=== PATIENT | male | born 1945 | race African-American/Black ===

== ENCOUNTER 2018-05-23 07:05 | Inpatient (IN) | payer BC ==
[2018-05-23] VITALS (34 sets, daily range): BP systolic 70–173; BP diastolic 30–86
[~2018-05-23] VITALS: Ht 152.4 cm; Wt 64.9 kg
--- NOTE | 2018-05-23 06:59 | Emergency Room Report ---
History of Present Illness General Source: Patient, EMS Present Illness HPI Patient is a 72-year-old male presented after increased altered mental status. Patient prior history of diabetes. He was noted to have a low blood sugar by EMS. The patient was given D10. A repeat blood sugar was also noted to be low. The patient was subsequently given a second dose of D10. The patient was noted to have persistent altered mental status. The patient's review blood recheck blood sugar was greater than 110 at this time.The patient had been awake but nonresponsive to questioning. He continues to be somewhat confused. Allergies: Coded Allergies: No Known Allergies (Unverified , 05/23/18) Patient History Past Medical History: see triage record Reviewed Nursing Documentation: PMH: Agreed; PSxH: Agreed Review of Systems All Other Systems: negative except mentioned in HPI Physical Exam Sp02 EP Interpretation: reviewed, normal General Appearance: normal inspection, well appearing, no apparent distress, alert, GCS 15, Chronically Ill Head: atraumatic ENT: normal ENT inspection, hearing grossly normal, normal voice Neck: normal inspection, full range of motion, supple, no bony tend Respiratory: normal inspection, lungs clear, normal breath sounds, no respiratory distress, no retraction, no wheezing Cardiovascular #1: regular rate, rhythm, no edema Gastrointestinal: normal inspection, normal bowel sounds, non tender, soft, no guarding, no hernia Genitourinary: no CVA tenderness Musculoskeletal: normal inspection, back normal, normal range of motion Neurologic: normal inspection, alert, responsive, speech normal Psychiatric: normal inspection, judgement/insight normal, mood/affect normal Skin: normal inspection, normal color, no rash Procedures Critical Care Time Critical Care Time Patient had a critical medical condition which untreated could potentially result in life or limb threatening injury. Total critical care time excluding procedures approximately 45 minutes. Medical Decision Making Diagnostic Impression: Primary Impression: Altered level of consciousness Additional Impressions: Acute renal failure Lactic acidosis Hypoglycemia ER Course Patient presented for altered mental status. Differential diagnosis included but was not limited to ischemic stroke, subarachnoid hemorrhage, hypoglycemia, spinal cord injury, neurodegenerative disorder, urinary tract infection, hypoxemia. The patient was noted to have evidence of acute renal failure. Patient was started on IV fluids. He was given IV dextrose in the field. The patient was noted to have a markedly hyperkalemia as well as evidence of acute renal failure. Patient was discussed with Dr. Workman for nephrology consult. The Dr. Mike Randle was contacted due to capitated physician. Patient was also noted to be the bradycardic in Dr. Ramy Madera was contacted for cardiology consult Labs Test 05/23/18 07:25 05/23/18 09:30 White Blood Count 9.2 K/UL (4.8-10.8) Red Blood Count 3.86 M/UL (4.70-6.10) Hemoglobin 10.7 G/DL (14.2-18.0) Hematocrit 32.7 % (42.0-52.0) Mean Corpuscular Volume 85 FL (80-99) Mean Corpuscular Hemoglobin 27.7 PG (27.0-31.0) Mean Corpuscular Hemoglobin Concent 32.8 G/DL (32.0-36.0) Red Cell Distribution Width 12.8 % (11.6-14.8) Platelet Count 214 K/UL (150-450) Mean Platelet Volume 7.0 FL (6.5-10.1) Neutrophils (%) (Auto) 75.4 % (45.0-75.0) Lymphocytes (%) (Auto) 20.2 % (20.0-45.0) Monocytes (%) (Auto) 4.0 % (1.0-10.0) Eosinophils (%) (Auto) 0.1 % (0.0-3.0) Basophils (%) (Auto) 0.3 % (0.0-2.0) Sodium Level 133 MMOL/L (136-145) Potassium Level 6.3 MMOL/L (3.5-5.1) Chloride Level 94 MMOL/L (98-107) Carbon Dioxide Level 16 MMOL/L (21-32) Anion Gap 23 mmol/L (5-15) Blood Urea Nitrogen 73 mg/dL (7-18) Creatinine 7.5 MG/DL (0.55-1.30) Estimat Glomerular Filtration Rate 7.2 mL/min (>60) Glucose Level 314 MG/DL (74-106) Calcium Level 9.6 MG/DL (8.5-10.1) Phosphorus Level 4.6 MG/DL (2.5-4.9) Magnesium Level 1.8 MG/DL (1.8-2.4) Total Bilirubin 1.0 MG/DL (0.2-1.0) Aspartate Amino Transf (AST/SGOT) 23 U/L (15-37) Alanine Aminotransferase (ALT/SGPT) 21 U/L (12-78) Alkaline Phosphatase 108 U/L (46-116) Total Creatine Kinase 118 U/L (26-140) Creatine Kinase MB 0.7 NG/ML (0.0-3.6) Creatine Kinase MB Relative Index 0.5 Troponin I 0.004 ng/mL (0.000-0.056) Pro-B-Type Natriuretic Peptide 1080 pg/mL (0-125) Total Protein 7.9 G/DL (6.4-8.2) Albumin 3.6 G/DL (3.4-5.0) Globulin 4.6 g/dL Albumin/Globulin Ratio 1.0 (1.0-2.7) Lactic Acid Level 15.60 mmol/L (0.66-2.22) EKG Diagnostic Results Rate: normal Rhythm: NSR ST Segments: other - peaked t waves Status: unchanged Disposition: ADMITTED INPATIENT Condition: Critical Rickie Walker MD May 23, 2018 06:59
[2018-05-23 08:01] LABS: BASOPHILS % (AUTO) 0.3 % (0.0-2.0); EOSINOPHILS % (AUTO) 0.1 % (0.0-3.0); HEMATOCRIT 32.7 % (42.0-52.0); HEMOGLOBIN 10.7 G/DL (14.2-18.0); LYMPHOCYTES % (AUTO) 20.2 % (20.0-45.0); MEAN CORPUSCULAR VOLUME 85 FL (80-99); NEUTROPHILS % (AUTO) 75.4 % (45.0-75.0); PLATELET COUNT 214 K/UL (150-450); RED BLOOD COUNT 3.86 M/UL (4.70-6.10); RED CELL DISTRIBUTION WIDTH 12.8 % (11.6-14.8); WHITE BLOOD COUNT 9.2 K/UL (4.8-10.8)
[2018-05-23 08:28] LABS: ALBUMIN 3.6 G/DL (3.4-5.0); ANION GAP 23 mmol/L (5-15); CALCIUM 9.6 MG/DL (8.5-10.1); CARBON DIOXIDE 16 MMOL/L (21-32); CHLORIDE 94 MMOL/L (98-107); CKMB 0.7 NG/ML (0.0-3.6); CREATININE 7.5 MG/DL (0.55-1.30); SODIUM 133 MMOL/L (136-145)
[2018-05-23 08:30] LABS: POTASSIUM 6.3 MMOL/L (3.5-5.1)
[2018-05-23 08:45] LABS: PHOSPHORUS 4.6 MG/DL (2.5-4.9)
[2018-05-23] MEDS ORDERED: Calcium Chloride 100mg/ml Vial IVP ONE ×2 (08:45→13:30)
[2018-05-23 08:46] LABS: ALANINE AMINOTRANSFERASE 21 U/L (12-78); ALKALINE PHOSPHATASE 108 U/L (46-116); ASPARTATE AMINO TRANSFERASE 23 U/L (15-37); CREATINE KINASE 118 U/L (26-140)
[2018-05-23 08:47] LABS: BLOOD UREA NITROGEN 73 mg/dL (7-18)
[2018-05-23] MEDS ORDERED: Sodium Polystyrene Sulfonate 15gm Powder ORAL ONE (09:15)
--- NOTE | 2018-05-23 09:24 | Diagnostic Imaging Report ---
Indication: Shortness of breath Technique: One view of the chest Comparison: none Findings: The lungs and pleural spaces are clear. The heart size is upper limits of normal. There are degenerative changes of both shoulders Impression: No acute process
--- NOTE | 2018-05-23 09:43 | Diagnostic Imaging Report ---
Indication: Altered mental status Technique: spiral acquisitions obtained through the brain. Angled axial and coronal 5 x 5 mm slices were reconstructed. No IV contrast utilized. Radiation dose was minimized using automated exposure control Total dose length product 1347.93 mGycm. CTDIvol(s) 70.38 mGy Comparison: none FINDINGS: No acute hemorrhage or edema. No mass effect or midline shift. There is age-related enlargement of the ventricles and extra axial CSF spaces. There is periventricular deep white matter ischemic change. Normal jensen-white differentiation. Visualized orbits are unremarkable. There is minimal ethmoid sinus disease.. Intact calvarium. The mastoids are clear. IMPRESSION: Chronic and age-related changes. Negative for acute intracranial bleed or mass effect Sinus disease The CT scanner at [facility] is accredited by the [employer] and the scans are performed using protocols designed to limit radiation exposure to as low as reasonably achievable to attain images of sufficient resolution adequate for diagnostic evaluation
--- NOTE | 2018-05-23 09:53 | Diagnostic Imaging Report ---
Indication: Abdominal pain Technique: Spiral acquisitions obtained through the abdomen and pelvis. No oral contrast utilized, per emergency room physician request No IV contrast utilized, per referring physician request.. Multiplanar reconstructions were generated. Total dose length product 662.32 mGycm. CTDIvol(s) 13.92 mGy. Dose reduction achieved using automated exposure control Comparison: None Findings: Lack of enteric contrast limits assessment of the GI tract. The appendix is normal. Moderate retained stool is seen diffusely throughout the colon. No evidence of diverticulosis or diverticulitis. No small bowel distention. There is a tiny fat-containing umbilical hernia. No free or loculated intraperitoneal gas or fluid is evident. The distal esophagus is distended by gas. The stomach and duodenum are unremarkable. Lack of IV contrast limits assessment of the solid organs. A calcification, likely postinflammatory, is seen in segment 7 of the liver. No other focal liver abnormality demonstrated. The gallbladder contains one or more small gallstones. No biliary ductal dilatation. The pancreas, spleen, adrenals are unremarkable. Calcifications in the bilateral renal sinuses may be calyceal or arterial. There is perinephric fat stranding bilaterally. No definite focal renal abnormality. No hydronephrosis or hydroureter or ureteral calculi are demonstrated. No retroperitoneal or mesenteric mass or adenopathy. No pelvic mass or adenopathy. There is a penile prosthesis in place. The bones demonstrate fairly extensive degenerative spondylosis changes. The lung bases demonstrate posterior dependent atelectatic changes. The heart is mildly enlarged. Arterial stents are seen in the bilateral superficial femoral arteries. Impression: Bilateral perinephric fat stranding, acuity indeterminate although suspect chronic. Acute infection certainly possible, however. Correlate with laboratory findings. No definite acute process otherwise Limited assessment of the GI tract, due to lack of enteric contrast administration Distended distal esophagus, suspect on the basis of disordered motility Cholelithiasis Bilateral renal sinus calcifications. Suspect arterial, although could represent nonobstructive calyceal calculi Cardiomegaly Right lobe liver calcification, most likely postinflammatory Other findings as noted, including bilateral superficial femoral arterial stents, basilar pulmonary dependent atelectatic changes, degenerative spondylosis, penile prosthesis, tiny fat-containing umbilical hernia The CT scanner at [facility] is accredited by the [employer] and the scans are performed using protocols designed to limit radiation exposure to as low as reasonably achievable to attain images of sufficient resolution adequate for diagnostic evaluation.
[2018-05-23] MEDS ORDERED: NS 1000ml 1,900 ML IVLG ONE (10:30)
[2018-05-23] MEDS ORDERED: cefTRIAXone 1 GM in NS 55 ML IVPB ONE (10:30)
[2018-05-23 10:42] LABS: APPEARANCE,URINE TURBID; BILIRUBIN, URINE NEGATIVE (NEGATIVE); COLOR,URINE PALE YELLOW; GLUCOSE, URINE (UA) 1+ (NEGATIVE); KETONES,URINE 1+ (NEGATIVE); LEUKOCYTE ESTERASE ,URINE NEGATIVE (NEGATIVE); NITRITE,URINE NEGATIVE (NEGATIVE); PH,URINE 5 (4.5-8.0); PROTEIN,URINE 3+ (NEGATIVE); UROBILINOGEN,URINE NORMAL MG/DL (0.0-1.0)
[2018-05-23] MEDS ORDERED: Sodium Bicarbonate 50ml Carp IV ONE (12:00)
[2018-05-23] MEDS: DEXTROSE IV SCH ×2 (12:08→16:54)
[2018-05-23] MEDS: SODIUM BICARBONATE IV SCH ×2 (12:08→16:54)
[2018-05-23] MEDS ORDERED: Atropine Sulfate 0.4mg/ml inj 20ML IVP ONE (13:30)
[2018-05-23] MEDS: Sodium Polystyrene Sulfonate 15gm Powder ORAL SCH ×2 (13:37→13:40)
--- NOTE | 2018-05-23 14:36 | History & Physical ---
History and Physical History & Physicial dict Mike Randle MD May 23, 2018 14:36
[2018-05-23 15:46] LABS: ANION GAP 29 mmol/L (5-15); BLOOD UREA NITROGEN 76 mg/dL (7-18); CALCIUM 10.7 MG/DL (8.5-10.1); CHLORIDE 98 MMOL/L (98-107); CREATININE 7.9 MG/DL (0.55-1.30); SODIUM 135 MMOL/L (136-145)
[2018-05-23] MEDS ORDERED: Calcium Gluconate 1gm/10ml vial IVP SCH (15:48)
[2018-05-23 15:59] LABS: POTASSIUM 8.9 MMOL/L (3.5-5.1)
[2018-05-23 16:00] LABS: CARBON DIOXIDE 8 MMOL/L (21-32)
[2018-05-23] MEDS ORDERED: Heparin 2000 units/Ns 1000ml INJ PRN (16:00)
[2018-05-23] MEDS ORDERED: Lidocaine 1% Plain 30 ml INJ PRN (16:00)
[2018-05-23] MEDS ORDERED: Sodium Bicarbonate 50ml Carp IV SCH (17:15)
[2018-05-23] MEDS: 1/2 NS IV SCH ×2 (17:30→18:50)
[2018-05-23] MEDS: CALCIUM CHLORIDE IV SCH ×2 (17:30→18:50)
[2018-05-23] MEDS ORDERED: Heparin 5000 units/ml inj IV SCH (17:52)
[2018-05-23] MEDS ORDERED: Insulin Human Regular 100units/ml 3ml IV SCH (18:00)
[2018-05-23] MEDS: NovoLOG Insulin Flexpen SUBQ SCH (18:16)
[2018-05-23] MEDS: Albuterol ud Inhalation HHN SCH (19:08)
--- NOTE | 2018-05-23 19:37 | Cardiology Report ---
APPROVED REPORT EKG Measurement Heart [id number] DC [id number] Sinus bradycardia Left axis deviation Nonspecific ST abnormality Abnormal ECG
--- NOTE | 2018-05-23 19:45 | History and Physical Report ---
DATE OF ADMISSION: 05/23/2018 HISTORY OF PRESENT ILLNESS: The patient is a 72-year-old man who comes to the hospital from home by paramedics because of altered mental status. Apparently, he was found to be poorly responsive and hypoglycemic in the field. He was given D10 twice and his mental status improved. He has been vomiting. He is somewhat confused and is very weak, but is able to give a brief history. He states that he has had diabetes for many years and has a history of coronary artery disease with stent placement. He is not aware of any history of kidney disorder. He has been vomiting and had a poor appetite for about three days. ALLERGIES: None. MEDICATIONS: It is unknown what his medication are, but he states he is not on insulin. REVIEW OF SYSTEMS: Cannot be obtained. PHYSICAL EXAMINATION: VITAL SIGNS: The blood pressure is 92/66. The heart rate was as low as 30s. Presently, the heart rate is 44, respirations 16 to 18, temperature is 94.2, and saturation is 96% on room air. GENERAL: He is overweight. He is alert and responsive, but very weak and vomiting. HEENT: Head is normocephalic. NECK: No jugular venous distention. CHEST: Clear. CARDIAC: Rhythm is regular bradycardia. ABDOMEN: Soft and nontender. Liver and spleen not enlarged. EXTREMITIES: No clubbing, cyanosis, or edema. LABORATORY AND DIAGNOSTIC DATA: Chest x-ray is clear. The CT of the brain is unremarkable. A CT of the abdomen and pelvis was done without contrast and shows some perinephric fat stranding, distended distal esophagus, cholelithiasis, renal sinus calcifications likely arterial, cardiomegaly, liver calcification, femoral artery stent, atelectasis, penile prosthesis, and small umbilical hernia. Laboratory studies show sodium 133, potassium 6.3, bicarbonate 16, BUN 73, creatinine 7.5, and blood sugar 314. Lactic acid 13.6, repeated was 15.6. Troponin negative. Liver enzymes normal. BNP 1080. Urinalysis showed 3+ protein, 3+ blood, 10 to 15 red cells, 2 to 4 white cells, 1+ ketones, and 1+ glucose. CBC: white count is 9200, hemoglobin 10.7, and platelets are normal. IMPRESSION: 1. Diabetes with hypoglycemia. 2. Severe metabolic acidosis. 3. Acute on chronic renal failure with uremia and hyperkalemia. 4. Arrhythmia likely due to hyperkalemia. 5. Peripheral artery disease. 6. Coronary artery stent placement. 7. Hypertension. 8. Hyperlipidemia. 9. Anemia. 10. Cholelithiasis. 11. Umbilical hernia. PLAN: The patient will be admitted to intensive care. We will manage his hyperkalemia and hydrate according to recommendations by Nephrology. He did not recommend initiating dialysis at this time. Repeat laboratory studies will be monitored closely. Mike Randle M.D. DR: REE JOB#: [id number] CC: KINZA
[2018-05-23] MEDS ORDERED: Vancomycin 1gm/D5W 275ml IVPB SCH ×2 (20:00)
[2018-05-23] MEDS: Dyna-Hex 2% Top Sol 2oz TOPIC SCH (20:00)
[2018-05-23] MEDS ORDERED: Calcium Chloride 100mg/ml Vial IV ONE (20:00)
[2018-05-23] MEDS ORDERED: Dyna-Hex 2% Top Sol 2oz TOPIC SCH (20:00)
[2018-05-23] MEDS ORDERED: Sodium Bicarbonate 50 ML in D5W 1000ml 1,000 ML IV SCH (20:00)
[2018-05-23] MEDS ORDERED: CALCIUM CHLORIDE IV ONE (20:00)
[2018-05-23] MEDS ORDERED: NS IV ONE (20:00)
[2018-05-23 20:07] LABS: HEMATOCRIT 26.6 % (42.0-52.0); HEMOGLOBIN 8.2 G/DL (14.2-18.0); MEAN CORPUSCULAR VOLUME 87 FL (80-99); PLATELET COUNT 155 K/UL (150-450); RED BLOOD COUNT 3.06 M/UL (4.70-6.10); RED CELL DISTRIBUTION WIDTH 12.9 % (11.6-14.8); WHITE BLOOD COUNT 7.7 K/UL (4.8-10.8)
[2018-05-23 20:08] LABS: BASOPHILS % (AUTO) 0.2 % (0.0-2.0); LYMPHOCYTES % (AUTO) 7.3 % (20.0-45.0); MONOCYTES % (AUTO) 6.3 % (1.0-10.0); NEUTROPHILS % (AUTO) 86.2 % (45.0-75.0)
[2018-05-23 20:45] LABS: ANION GAP 25 mmol/L (5-15); BLOOD UREA NITROGEN 75 mg/dL (7-18); CALCIUM 11.2 MG/DL (8.5-10.1); CARBON DIOXIDE 15 MMOL/L (21-32); CHLORIDE 94 MMOL/L (98-107); CREATININE 7.4 MG/DL (0.55-1.30); SODIUM 135 MMOL/L (136-145)
--- NOTE | 2018-05-23 20:45 | Consultation ---
DATE OF CONSULTATION: 05/23/2018 NEPHROLOGY CONSULTATION CONSULTING PHYSICIAN: Suraj Workman M.D. REFERRING PHYSICIAN: Mike Randle M.D. REASON FOR CONSULTATION: Hyperkalemia and azotemia. HISTORY OF PRESENT ILLNESS: The patient presents with a several-day history of nausea and vomiting, unable to hold down food, renal failure, and potassium is 6.3. He has been a diabetic for many years on oral agents. He has a history of coronary artery disease and prior stent. He has not been to this hospital before. He has no known renal failure. He has had elevated lactic acid on this admission and some bradycardia and was given emergency treatment in the emergency room. PAST SURGERIES: Coronary artery stenting. HOME MEDICATIONS: Reported by the patient include metformin, statin, aspirin, and Plavix, probably a blood pressure medicine, but he could not give a good history. ALLERGIES: None known. SYSTEM REVIEW: HEENT: No known diabetic retinopathy. He states vision and hearing is good. ENDOCRINE: Diabetes as above for many years. No known thyroid disease. PULMONARY: No asthma, TB, or chronic cough. CARDIAC: No angina, myocardial infarction, palpitations, or congestive heart failure. GASTROINTESTINAL: Recurrent nausea and vomiting recently. No gastrointestinal bleeding. No history of ulcer and colonic disease. GENITOURINARY: No dysuria, hematuria, or kidney stones. No history of prostate disease. NEUROLOGIC: No CVA or seizures. MUSCULOSKELETAL: No chronic joint pain. PHYSICAL EXAM: GENERAL: The patient is an acutely ill man, now alert, although he presented with hypoglycemia. VITAL SIGNS: Blood pressure 117/51, pulse 45, room air sat 98%, and temperature 92.3, it was as high as 99. HEENT: Oral mucosa is very dry and coated tongue. Sclerae are nonicteric. Ocular motion is intact in all directions. NECK: No adenopathy. LUNGS: Clear. HEART: Regular rhythm. I hear no murmur. ABDOMEN: Soft without organomegaly or tenderness. GENITOURINARY: Penis and testes normal. EXTREMITIES: No edema, cyanosis, or clubbing. NEUROLOGIC: He is alert, responsive, and somewhat withdrawn. Ocular motion intact in all directions. Smile symmetric. Tongue is midline. He moves all extremities. PERTINENT LABS: Sodium 133, potassium 6.3, chloride 94, CO2 of 16, BUN 73, creatinine is 7.5, and glucose is 314. Total CK 118. BNP 1080. Albumin 3.6. Urine shows 3+ protein, 10 to 15 rbc's, and 2 to 4 red cells per high-power field. IMPRESSION: 1. Acute kidney injury likely dehydration. 2. Hyperkalemia secondary to acute kidney injury and possibly potassium retaining medications. 3. Lactic acidosis. 4. History of hypoglycemia on this presentation. 5. Dehydration, severe. 6. Possible underlying chronic kidney disease. Prior data not available. PLAN: The patient needs vigorous hydration, monitoring of his laboratories, and treatment for hyperkalemia. Detailed orders are given. Suraj Workman M.D. DR: SILVIA JOB#: [id number] CC:
[2018-05-23 20:48] LABS: POTASSIUM 7.1 MMOL/L (3.5-5.1)
[2018-05-23] MEDS ORDERED: Sodium Bicarbonate 100 ML in D5W 1000ml 1,000 ML IV SCH (21:00)
--- NOTE | 2018-05-23 21:01 | Operative Note - PDOC ---
Operative Note Operative Note Date of Operation/Procedure: May 23, 2018 Pre-op Diagnosis: renal insufficiency requiring urgent HD Procedure: left femoral temporary HD catheter insertion Post-op Diagnosis: same as pre-op Surgeon: meseret Anesthesia: local Specimen: none Complications: none Condition: unstable Estimated Blood Loss: minimal Drains: none Implant(s) used?: No Indications for Procedure 72M in critical condition requiring urgent HD. Please see labs and ED note for details. Surgery called for Temp HD line placement emergently. Description of Procedure Left groin prepped and draped in standard surgical fashion. All protective equipment worn and precautions taken. Left femoral vein cannulated on first try using finder needle. guidewire placed and needle removed. skin incision made and dilators used. Temporary HD catheter placed and guidewire discarded. both ports flushed and aspirated well. line sutured in place. dressings applied. heparin placed in ports. okay for HD use Derek Lacey May 23, 2018 21:01
[2018-05-23] MEDS: Sodium Bicarbonate 100 ML in D5W 1000ml 1,000 ML IV SCH (21:40)
[2018-05-23] MEDS ORDERED: Piperacillin/Tazobactam 3.375 GM in D5W 110 ML IVPB SCH (22:00)
[2018-05-23] MEDS: Zosyn 2.25 gm in D5W 55ml IV SCH (22:33)
--- NOTE | 2018-05-23 23:04 | Emergency Room Report ---
History of Present Illness General Chief Complaint: Altered Level of Consciousness Source: Patient, Medical Record Present Illness Allergies: Coded Allergies: No Known Allergies (Unverified , 05/23/18) Nursing Documentation-[facility] Past Medical History: No History, Except For Hx Cardiac Problems: Yes Hx Hypertension: Yes Hx Diabetes: Yes Hx Cancer: No Hx Gastrointestinal Problems: No Hx Neurological Problems: No Physical Exam Vital Signs Date Time Temp Pulse Resp B/P (MAP) Pulse Ox O2 Delivery O2 Flow Rate FiO2 05/23/18 06:58 99.0 76 18 118/54 99 Room Air 05/23/18 16:35 100 Procedures Critical Care Time Critical Care Time i. I feel this is a highly complex case requiring extensive working including EKG/Rhythm strip, Xray/CT/US, Blood/urine lab work, repeat exams while in ED, and administration of strong opiates/narcotics for pain control, admission to hospital or close patient follow up. Total time: 30 min bedside evaluation and treatment excludes procedures (EKG). Reason for critical care: hypoxic, hypotensive Possible complications: hypotension, hypertension, UT, shock, arrhythmias, metabolic acidosis, end organ damage, respiratory failure. Interventions: ABG. intubation. central line. Course: Patient hypoxic. ABG shows significant acidosis. I evaluated patient. Decision to intubate made. O2 sats improved after intubation. Patient remains hypotensive. Central line placed. Pressors started. Consultations: nursing staff, EMS, family Performed by: Dr Eubanks Tolerated well condition = critical j. because of unstable vital signs this patient had a condition that could potentially threaten life or limb. I feel this is a critical patient who required my full attention while patient was considered critical. Total Critical Care Time excluding procedures was greater than 35 minutes Central Line Central Line : Consent: Emergent Central Line Lumen: triple Maximal Sterile Barrier Tech: yes cap, yes mask, yes sterile gown, yes sterile gloves, yes large sterile sheet, yes hand hygiene, yes chlorhexidine prep Central Line Postion: femoral (R) Anesthesia: local Complications: none Central Line Post Position: sutured, good blood return Attempts: One Patient Tolerated: Well Complications: None Intubation Intubation : Consent: Emergent Intubation Method: orotracheal Tube Size (cm): 7.5 Medications: Etomidate, Rocuronium Intubation Complications: no complications Post Intubation Xray: Yes Attempts: One Patient Tolerated: Well Complications: None Medical Decision Making Diagnostic Impression: Primary Impression: Altered level of consciousness Additional Impressions: Acute renal failure Hypoglycemia Lactic acidosis ER Course I was called to evaluate this patient in the ICU. Admitted today for renal failure. Patient became more unresponsive. Hypoxic. ABG shows significant acidosis. On my evaluation I made decision to intubate patient. Patient O2 sats improved after intubation. Placed on ventilator. CXR confirms ET tube placement. Patient remains hypotensive. Placed right femoral central line. Pressors started. Blood pressure improved. Admitting physicians informed Last Vital Signs Date Time Temp Pulse Resp B/P (MAP) Pulse Ox O2 Delivery O2 Flow Rate FiO2 05/23/18 20:51 87 29 100 05/23/18 19:24 100 Mechanical Ventilator 05/23/18 19:00 125/48 05/23/18 18:45 93.1 Status: improved Disposition: ADMITTED INPATIENT Condition: Critical Scripts Unable to Obtain Active Prescriptions or Reported Meds Referrals: ADAM KAY (PCP) Yg Eubanks MD May 23, 2018 23:04
--- NOTE | 2018-05-23 23:45 | Consultation ---
DATE OF CONSULTATION: CARDIOLOGY CONSULTATION CONSULTING PHYSICIAN: Ramy Madera M.D. REQUESTING PHYSICIAN: Mike Randle M.D. REASON FOR CONSULTATION: Bradyarrhythmia and heart block. HISTORY OF PRESENT ILLNESS: This is a 72-year-old male, who was noted to be confused and altered in mentation at home. He was brought into the emergency room by paramedics. On arrival, he was hypoglycemic, hypothermic, and bradycardic. He was also hypotensive and subsequently, noted to have significant laboratory abnormalities including a potassium level of 6.3. His electrocardiogram in the emergency revealed sinus with first-degree AV block and episodes of ventricular escape beats intermittently. The patient was given fluid challenges, as well as Kayexalate, calcium, and D50. I have been asked to assist with further cardiovascular care. The patient apparently has had several days of vomiting and anorexia. He has not complained of chest pain or shortness of breath. PAST MEDICAL HISTORY: 1. Type 2 diabetes mellitus. 2. Coronary artery disease with history of coronary stent. 3. Hypertension. 4. Hyperlipidemia. 5. Peripheral artery disease with history of prior stenting. MEDICATIONS: Prior to admission, unknown. ALLERGIES: None known. FAMILY HISTORY: Not remarkable. SOCIAL HISTORY: He denies smoking or alcohol abuse. REVIEW OF SYSTEMS: Cannot be reliably obtained at this time. PHYSICAL EXAMINATION: GENERAL: He is awake and alert, but withdrawn and lethargic. VITAL SIGNS: Blood pressure 90/65, pulse 45, respirations 20, and temperature 94.2. HEENT: Conjunctivae pink. Oropharynx clear. Mucous membranes dry and . NECK: Supple. Jugular venous pressure normal. LUNGS: Clear. CARDIAC: Regular rhythm. Slow rate. Normal S1, S2 with no murmur. ABDOMEN: Soft and nontender. EXTREMITIES: Without edema. Capillary refill is diminished. IMAGING: Chest x-ray, no acute process. CAT scan of the brain, no acute process. LABORATORY DATA: Sodium 133, potassium 6.3, bicarbonate 16, BUN 73, creatinine 7.5, and glucose 314. Lactic acid 15.6. Troponin is negative. White count is 9.2 and hemoglobin 10.7. IMPRESSION: 1. Condition critical. Prognosis guarded. Concerns include heart block and bradyarrhythmias due to hyperkalemia. 2. Hyperkalemia due to acute kidney failure. 3. Acute kidney failure due to hypovolemia and dehydration. 4. Metabolic and lactic acidosis. 5. Peripheral artery disease. 6. Coronary artery disease with history of coronary stent and no signs of acute coronary insufficiency. 7. History of hypertension now with hypotension and shock due to hypovolemia. 8. Anemia likely due to kidney disease. 9. Metabolic encephalopathy. PLAN: 1. Intensive care unit monitoring. 2. External pacemaker leads. 3. Emergent treatment of hyperkalemia. 4. IV fluid hydration. 5. Likely need for emergent hemodialysis. 6. No role for temporary pacing without first correcting metabolic abnormalities. 7. We will follow closely during this hospital course. Ramy Madera M.D. DR: OMAR JOB#: [id number] CC:
[2018-05-23 23:49] LABS: ANION GAP 20 mmol/L (5-15); BLOOD UREA NITROGEN 43 mg/dL (7-18); CALCIUM 9.7 MG/DL (8.5-10.1); CARBON DIOXIDE 21 MMOL/L (21-32); CHLORIDE 96 MMOL/L (98-107); CREATININE 4.9 MG/DL (0.55-1.30); POTASSIUM 4.5 MMOL/L (3.5-5.1); SODIUM 137 MMOL/L (136-145)
[2018-05-24] VITALS (26 sets, daily range): BP systolic 62–155; BP diastolic 18–89
[2018-05-24] MEDS: NovoLOG Insulin Flexpen SUBQ SCH ×5 (00:31→23:38)
[2018-05-24] MEDS: Sodium Bicarbonate 100 ML in D5W 1000ml 1,000 ML IV SCH (03:58)
[2018-05-24 05:25] LABS: BASOPHILS % (AUTO) 0.2 % (0.0-2.0); EOSINOPHILS % (AUTO) 0.1 % (0.0-3.0); HEMOGLOBIN 8.1 G/DL (14.2-18.0); LYMPHOCYTES % (AUTO) 9.6 % (20.0-45.0); MEAN CORPUSCULAR VOLUME 81 FL (80-99); NEUTROPHILS % (AUTO) 78.1 % (45.0-75.0); PLATELET COUNT 152 K/UL (150-450); RED BLOOD COUNT 2.95 M/UL (4.70-6.10); RED CELL DISTRIBUTION WIDTH 12.5 % (11.6-14.8)
[2018-05-24 06:00] LABS: ALANINE AMINOTRANSFERASE 166 U/L (12-78); ALBUMIN 2.5 G/DL (3.4-5.0); ALBUMIN/GLOBULIN RATIO 0.9 (1.0-2.7); ALKALINE PHOSPHATASE 99 U/L (46-116); ANION GAP 16 mmol/L (5-15); ASPARTATE AMINO TRANSFERASE 241 U/L (15-37); BILIRUBIN,TOTAL 0.7 MG/DL (0.2-1.0); BLOOD UREA NITROGEN 49 mg/dL (7-18); CALCIUM 9.7 MG/DL (8.5-10.1); CARBON DIOXIDE 26 MMOL/L (21-32); CHLORIDE 94 MMOL/L (98-107); CREATININE 5.3 MG/DL (0.55-1.30); POTASSIUM 4.2 MMOL/L (3.5-5.1); SODIUM 136 MMOL/L (136-145)
[2018-05-24 06:11] LABS: PHOSPHORUS 3.2 MG/DL (2.5-4.9)
[2018-05-24] MEDS: Zosyn 2.25 gm in D5W 55ml IV SCH ×3 (06:22→21:46)
[2018-05-24] MEDS: Albuterol ud Inhalation HHN SCH ×3 (07:00→19:53)
[2018-05-24] MEDS ORDERED: Etomidate 40mg/20ml Inj IV ONE (08:19)
[2018-05-24] MEDS ORDERED: Succinylcholine 20mg/ml 10ml vial ONE (08:19)
[2018-05-24] MEDS ORDERED: Zemuron 50mg/5ml Inj IV ONE (08:19)
--- NOTE | 2018-05-24 08:58 | Diagnostic Imaging Report ---
Indication: Shortness of breath Technique: One view of the chest Comparison: 05/23/2018 Findings: Interim endotracheal extubation. There is now some perihilar vascular congestion and hazy perihilar parenchymal opacity. There is suggestion of slight blunting of right costophrenic sulcus, not evident previously. The heart size is upper limits of normal Impression: Developing mild perihilar venous congestion and hazy parenchymal opacity, over one day Possible small right pleural effusion Interim extubation
[2018-05-24 09:23] LABS: BASOPHILS % (AUTO) 0.4 % (0.0-2.0); HEMATOCRIT 24.4 % (42.0-52.0); HEMOGLOBIN 8.3 G/DL (14.2-18.0); LYMPHOCYTES % (AUTO) 8.7 % (20.0-45.0); MEAN CORPUSCULAR VOLUME 81 FL (80-99); MONOCYTES % (AUTO) 11.1 % (1.0-10.0); NEUTROPHILS % (AUTO) 79.8 % (45.0-75.0); PLATELET COUNT 166 K/UL (150-450); RED BLOOD COUNT 3.01 M/UL (4.70-6.10); RED CELL DISTRIBUTION WIDTH 12.5 % (11.6-14.8); WHITE BLOOD COUNT 10.9 K/UL (4.8-10.8)
--- NOTE | 2018-05-24 09:23 | Diagnostic Imaging Report ---
Indication: Post intubation Technique: One view of the chest Comparison: 10 hours earlier Findings: Interim endotracheal intubation. Endotracheal tube tip in good position, approximately 3 cm above the jerry. There is slight blunting of the left costophrenic sulcus, could indicate a small amount of pleural fluid. No definite infiltrates. The heart size is upper limits normal. Impression: Satisfactory endotracheal intubation Possible small left pleural effusion Other stable findings as described
[2018-05-24 09:35] LABS: ANION GAP 11 mmol/L (5-15); BLOOD UREA NITROGEN 51 mg/dL (7-18); CALCIUM 9.4 MG/DL (8.5-10.1); CARBON DIOXIDE 29 MMOL/L (21-32); CHLORIDE 94 MMOL/L (98-107); CREATININE 5.5 MG/DL (0.55-1.30); POTASSIUM 4.2 MMOL/L (3.5-5.1); SODIUM 134 MMOL/L (136-145)
[2018-05-24 10:09] LABS: CREATINE KINASE 1000 U/L (26-308)
[2018-05-24 11:29] LABS: ANION GAP 10 mmol/L (5-15); BLOOD UREA NITROGEN 47 mg/dL (7-18); CALCIUM 8.6 MG/DL (8.5-10.1); CARBON DIOXIDE 30 MMOL/L (21-32); CHLORIDE 96 MMOL/L (98-107); CREATININE 4.9 MG/DL (0.55-1.30); SODIUM 136 MMOL/L (136-145)
--- NOTE | 2018-05-24 11:42 | Pulmonology Progress Note ---
Assessment/Plan Assessment/Plan 1. Diabetes with hypoglycemia. 2. Severe metabolic acidosis; likely due to metformin 3. Acute on chronic renal failure with uremia and hyperkalemia. 4. Arrhythmia likely due to hyperkalemia. 5. Peripheral artery disease. 6. Coronary artery stent placement. 7. Hypertension. 8. Hyperlipidemia. 9. Anemia. 10. Cholelithiasis. 11. Umbilical hernia. intubated for resp failure last PM dialysis done for K 8.7 briefly on pressors self extubated and doing well now K normal no resp distress will get home med list titrate O2 Subjective Constitutional: Reports: fatigue, anorexia; Denies: fever Respiratory: Denies: shortness of breath Cardiovascular: Denies: chest pain Gastrointestinal/Abdominal: Denies: nausea, vomiting Allergies: Coded Allergies: No Known Allergies (Unverified , 05/23/18) Objective Last 24 Hour Vital Signs Date Time Temp Pulse Resp B/P (MAP) Pulse Ox O2 Delivery O2 Flow Rate FiO2 05/24/18 11:00 80 15 131/57 (81) 95 05/24/18 10:00 75 15 122/50 (74) 96 05/24/18 09:00 80 15 129/51 (77) 97 05/24/18 08:15 Venturi Mask 14.0 55 05/24/18 08:15 Venturi Mask 14.0 55 05/24/18 08:00 14.0 05/24/18 08:00 Venturi Mask 14.0 05/24/18 08:00 98.3 78 17 132/48 (76) 95 05/24/18 07:42 89 05/24/18 07:00 82 19 129/45 (73) 95 05/24/18 06:00 80 19 131/47 (75) 100 05/24/18 05:00 98.7 74 19 155/89 (111) 96 05/24/18 04:00 Mechanical Ventilator 05/24/18 04:00 74 19 138/54 (82) 100 05/24/18 04:00 70 05/24/18 04:00 100 05/24/18 03:12 73 23 80 05/24/18 03:00 74 19 133/53 (79) 100 05/24/18 02:00 78 19 121/56 (77) 100 05/24/18 01:06 75 23 100 05/24/18 01:00 75 19 124/48 (73) 100 05/24/18 00:00 78 19 127/47 (73) 100 05/24/18 00:00 Mechanical Ventilator 05/23/18 23:30 81 19 130/47 (74) 100 05/23/18 23:00 79 31 100 05/23/18 23:00 81 19 127/60 (82) 100 05/23/18 22:30 82 19 127/47 (73) 100 05/23/18 22:00 98.9 88 19 123/48 (73) 100 05/23/18 21:45 91 19 173/84 (113) 100 05/23/18 21:30 90 19 164/65 (98) 100 05/23/18 21:15 91 19 112/60 (77) 100 05/23/18 21:00 90 19 96/64 (75) 100 05/23/18 21:00 96/64 05/23/18 20:51 87 29 100 05/23/18 20:47 118/63 05/23/18 20:45 91 19 118/63 (81) 100 05/23/18 20:30 89 19 143/66 (91) 100 05/23/18 20:30 143/66 05/23/18 20:15 88 19 111/52 (71) 100 05/23/18 20:15 111/52 05/23/18 20:00 97.5 80 19 92/64 (73) 100 05/23/18 20:00 100 05/23/18 20:00 92/64 05/23/18 20:00 Mechanical Ventilator 05/23/18 20:00 70 05/23/18 19:45 117/53 05/23/18 19:45 80 19 117/53 (74) 100 05/23/18 19:30 125/49 05/23/18 19:30 69 19 125/49 (74) 100 05/23/18 19:24 70 14 100 Mechanical Ventilator 100 05/23/18 19:15 70 19 118/52 (74) 100 18 19:15 118/52 05/23/18 19:14 70 19 100 Mechanical Ventilator 100 05/23/18 19:08 70 19 100 05/23/18 19:00 125/48 05/23/18 19:00 70 19 122/47 (72) 100 05/23/18 18:45 93.1 70 19 122/47 (72) 100 05/23/18 18:30 71 16 128/49 (75) 100 05/23/18 18:15 71 17 144/51 (82) 100 18 18:00 120/41 05/23/18 18:00 56 15 120/41 (67) 100 05/23/18 17:45 55 15 99/38 (58) 100 05/23/18 17:30 47 15 95/36 (55) 100 05/23/18 17:15 40 15 86/54 (65) 100 05/23/18 17:10 52 15 88/43 (58) 100 05/23/18 17:08 74/32 05/23/18 17:05 46 15 70/30 (43) 100 05/23/18 17:00 50 15 71/35 (47) 100 05/23/18 16:35 100 05/23/18 16:35 64 15 100 05/23/18 16:00 57 05/23/18 16:00 Room Air 05/23/18 16:00 44 21 91/39 (56) 95 05/23/18 16:00 Mechanical Ventilator 05/23/18 15:40 57 21 86/47 (60) 93 05/23/18 15:00 44 21 91/39 (56) 95 05/23/18 14:36 94.2 55 22 90/66 97 Room Air 05/23/18 14:30 95.0 49 21 102/42 (62) 96 05/23/18 14:30 41 05/23/18 13:00 94.2 44 16 92/66 96 Room Air Intake and Output 05/23/18 05/24/18 19:00 07:00 Intake Total 1185 ml 3247.500 ml Output Total 10 ml 13 ml Balance 1175 ml 3234.500 ml Intake IV Total 1185 ml 3247.500 ml Output Urine Total 10 ml 13 ml # Voids 2 # Bowel Movements 1 General Appearance: no acute distress HEENT: anicteric Respiratory/Chest: lungs clear Cardiovascular: normal rate Abdomen: soft, non tender Extremities: no edema Microbiology Date/Time Source Procedure Growth Status 05/23/18 08:01 Nasal Nares Influenza Types A,B Antigen (BANDAR) - Final Complete Laboratory Tests 05/23/18 15:25: Sodium Level 135L, Potassium Level 8.9*H, Chloride Level 98, Carbon Dioxide Level 8*L, Anion Gap 29H, Blood Urea Nitrogen 76H, Creatinine 7.9H, Estimat Glomerular Filtration Rate 8.2, Glucose Level 297H, Lactic Acid Level 19.50H, Uric Acid 9.3H, Calcium Level 10.7H 05/23/18 16:03: Arterial Blood pH 7.105*L, Arterial Blood Partial Pressure CO2 19.9*L, Arterial Blood Partial Pressure O2 87.0, Arterial Blood HCO3 6.1*L, Arterial Blood Oxygen Saturation 92.2L, Arterial Blood Base Excess -21.7*L, Andreas Test Positive 05/23/18 17:05: Lactic Acid Level 19.10H 05/23/18 17:45: Arterial Blood pH 6.995*L, Arterial Blood Partial Pressure CO2 30.0L, Arterial Blood Partial Pressure O2 95.1, Arterial Blood HCO3 7.1*L, Arterial Blood Oxygen Saturation 92.3L, Arterial Blood Base Excess -22.8*L, Andreas Test Positive 05/23/18 19:40: White Blood Count 7.7, Red Blood Count 3.06L, Hemoglobin 8.2L, Hematocrit 26.6L , Mean Corpuscular Volume 87, Mean Corpuscular Hemoglobin 26.8L, Mean Corpuscular Hemoglobin Concent 30.8L, Red Cell Distribution Width 12.9, Platelet Count 155, Mean Platelet Volume 7.3, Neutrophils (%) (Auto) 86.2H, Lymphocytes (%) (Auto) 7.3L, Monocytes (%) (Auto) 6.3, Eosinophils (%) (Auto) 0.0, Basophils (%) (Auto) 0.2, Sodium Level 135L, Potassium Level 7.1*H, Chloride Level 94L, Carbon Dioxide Level 15L, Anion Gap 25H, Blood Urea Nitrogen 75H, Creatinine 7.4H, Estimat Glomerular Filtration Rate 8.8, Glucose Level 559#*H, Calcium Level 11.2H, Hepatitis Be Antibody [Pending], Hepatitis Be Antigen [Pending], Hepatitis C Antibody [Pending] 05/23/18 22:00: Arterial Blood pH 7.450, Arterial Blood Partial Pressure CO2 31.7L, Arterial Blood Partial Pressure O2 147.6H, Arterial Blood HCO3 21.5L, Arterial Blood Oxygen Saturation 98.0, Arterial Blood Base Excess -1.9, Andreas Test Positive 05/23/18 23:10: Sodium Level 137, Potassium Level 4.5, Chloride Level 96L, Carbon Dioxide Level 21, Anion Gap 20H, Blood Urea Nitrogen 43H, Creatinine 4.9H, Estimat Glomerular Filtration Rate 14.3, Glucose Level 326#H, Calcium Level 9.7, Lactic Acid Level 10.80H 05/24/18 04:00: White Blood Count 9.0, Red Blood Count 2.95L, Hemoglobin 8.1L, Hematocrit 24.0L , Mean Corpuscular Volume 81, Mean Corpuscular Hemoglobin 27.5, Mean Corpuscular Hemoglobin Concent 33.8, Red Cell Distribution Width 12.5, Platelet Count 152, Mean Platelet Volume 6.9, Neutrophils (%) (Auto) 78.1H, Lymphocytes ( %) (Auto) 9.6L, Monocytes (%) (Auto) 12.0H, Eosinophils (%) (Auto) 0.1, Basophils (%) (Auto) 0.2, Sodium Level 136, Potassium Level 4.2, Chloride Level 94L, Carbon Dioxide Level 26, Anion Gap 16H, Blood Urea Nitrogen 49H, Creatinine 5.3H, Estimat Glomerular Filtration Rate 13.1, Glucose Level 253H, Calcium Level 9.7, Phosphorus Level 3.2, Magnesium Level 1.3L, Total Bilirubin 0.7, Aspartate Amino Transf (AST/SGOT) 241H, Alanine Aminotransferase (ALT/SGPT ) 166H, Alkaline Phosphatase 99, Lactate Dehydrogenase 334H, Myoglobin [Pending] , Total Protein 5.2#L, Albumin 2.5L, Globulin 2.7, Albumin/Globulin Ratio 0.9L 05/24/18 05:30: Arterial Blood pH 7.519H, Arterial Blood Partial Pressure CO2 32.7L, Arterial Blood Partial Pressure O2 137.7H, Arterial Blood HCO3 26.0, Arterial Blood Oxygen Saturation 98.0, Arterial Blood Base Excess 3.2H, Andreas Test Positive 05/24/18 08:00: Sodium Level 134L, Potassium Level 4.2, Chloride Level 94L, Carbon Dioxide Level 29, Anion Gap 11, Blood Urea Nitrogen 51H, Creatinine 5.5H, Estimat Glomerular Filtration Rate 12.5, Glucose Level 225H, Calcium Level 9.4 05/24/18 08:30: White Blood Count 10.9H, Red Blood Count 3.01L, Hemoglobin 8.3L, Hematocrit 24.4L, Mean Corpuscular Volume 81, Mean Corpuscular Hemoglobin 27.6, Mean Corpuscular Hemoglobin Concent 34.1, Red Cell Distribution Width 12.5, Platelet Count 166, Mean Platelet Volume 6.8, Neutrophils (%) (Auto) 79.8H, Lymphocytes ( %) (Auto) 8.7L, Monocytes (%) (Auto) 11.1H, Eosinophils (%) (Auto) 0.0, Basophils (%) (Auto) 0.4, Lactic Acid Level 7.70H, Total Creatine Kinase 1000H 05/24/18 10:45: Sodium Level 136, Potassium Level 4.0, Chloride Level 96L, Carbon Dioxide Level 30, Anion Gap 10, Blood Urea Nitrogen 47H, Creatinine 4.9H, Estimat Glomerular Filtration Rate 14.3, Glucose Level 174H, Calcium Level 8.6, Lactic Acid Level [ Pending] Current Medications Medications (Trade) Dose Ordered Sig/Isabelle Route PRN Reason Start Time Stop Time Status Last Admin Dose Admin Albuterol Sulfate (Proventil) 10 mg TIDRT HHN 05/23/18 19:00 05/28/18 18:59 05/23/18 19:08 Chlorhexidine Gluconate (Ashanti-Hex 2%) 1 applic DAILY@2000 TOPIC 05/23/18 20:00 06/22/18 19:59 05/23/18 20:00 Dextrose (Dextrose 50%) 25 ml Q30M PRN IV Hypoglycemia 05/23/18 14:45 06/22/18 14:44 Dextrose (Dextrose 50%) 50 ml Q30M PRN IV Hypoglycemia 05/23/18 14:45 06/22/18 14:44 Heparin Sodium/ Sodium Chloride (Heparin 2000 units/Ns 1000ml premix) 2,000 unit ONCE PRN INJ PICC 05/23/18 16:00 05/24/18 23:59 Insulin Aspart (NovoLOG) Q6HR SUBQ 05/23/18 18:00 06/22/18 17:59 05/24/18 06:23 Lidocaine HCl (Xylocaine 1% 30ml) 30 ml ONCE PRN INJ PICC 05/23/18 16:00 05/24/18 23:59 Norepinephrine Bitartrate 4 mg/ Dextrose 250 ml @ 0 mls/hr Q24H IV 05/23/18 16:00 06/22/18 15:59 05/23/18 17:08 Piperacillin Sod/ Tazobactam Sod 2.25 gm/Dextrose 55 ml @ 110 mls/hr Q8HR IV 05/23/18 22:00 05/28/18 21:59 05/24/18 06:22 Sodium Chloride 1,000 ml @ 50 mls/hr Q20H IV 05/24/18 10:00 06/23/18 09:59 05/24/18 10:18 Vancomycin HCl (Vanco rx to dose) 1 ea DAILY PRN MISC Per rx protocol 05/23/18 18:00 06/22/18 17:59 Mike Randle MD May 24, 2018 11:42
[2018-05-24] MEDS ORDERED: GLIMEPIRIDE4 MG ORAL (13:35)
[2018-05-24] MEDS ORDERED: GABAPENTIN100 MG ORAL (13:35)
[2018-05-24] MEDS ORDERED: LOSARTAN POTASS50 MG ORAL (13:35)
[2018-05-24] MEDS ORDERED: TRADJENTA5 MG PO (13:35)
[2018-05-24] MEDS ORDERED: FUROSEMIDE40 MG ORAL (13:35)
[2018-05-24] MEDS ORDERED: METFORMIN HCL1000 M1 ORAL (13:35)
[2018-05-24] MEDS ORDERED: AMLODIPINE BESYL5 MG ORAL (13:35)
[2018-05-24] MEDS ORDERED: ATORVASTATIN CA40 MG ORAL (13:35)
[2018-05-24] MEDS ORDERED: CARVEDILOL25 MG ORAL (13:35)
[2018-05-24] MEDS ORDERED: PLAVIX75 MG ORAL (13:35)
--- NOTE | 2018-05-24 16:37 | Cardiology Report ---
APPROVED REPORT EKG Measurement Heart [id number] Marked sinus bradycardia with marked sinus arrhythmia Left axis deviation Right bundle branch block Abnormal ECG
--- NOTE | 2018-05-24 18:03 | Nephrology Progress Note ---
Assessment/Plan Problem List: (1) Acute coronary syndromes (2) Rhabdomyolysis (3) Hyperkalemia (4) Hypovolemic shock (5) Lactic acidosis (6) Acute renal failure (7) Hypoglycemia Plan better after dialysis, possible lactic acidosis form metformin, anuric, serial HD, epo Subjective HEENT: Reports: no symptoms Genitourinary: Reports: no symptoms Neurologic/Psychiatric: Reports: no symptoms Objective Objective Last 24 Hour Vital Signs Date Time Temp Pulse Resp B/P (MAP) Pulse Ox O2 Delivery O2 Flow Rate FiO2 05/24/18 12:32 Venturi Mask 12.0 50 05/24/18 12:32 Venturi Mask 12.0 50 05/24/18 12:00 99.7 74 15 129/60 (83) 94 05/24/18 12:00 Venturi Mask 14.0 05/24/18 12:00 14.0 05/24/18 11:00 80 15 131/57 (81) 95 05/24/18 10:00 75 15 122/50 (74) 96 05/24/18 09:00 80 15 129/51 (77) 97 05/24/18 08:15 Venturi Mask 14.0 55 05/24/18 08:15 Venturi Mask 14.0 55 05/24/18 08:00 14.0 05/24/18 08:00 Venturi Mask 14.0 05/24/18 08:00 98.3 78 17 132/48 (76) 95 05/24/18 07:42 89 05/24/18 07:00 82 19 129/45 (73) 95 05/24/18 06:00 80 19 131/47 (75) 100 05/24/18 05:00 98.7 74 19 155/89 (111) 96 05/24/18 04:00 Mechanical Ventilator 05/24/18 04:00 74 19 138/54 (82) 100 05/24/18 04:00 70 05/24/18 04:00 100 05/24/18 03:12 73 23 80 05/24/18 03:00 74 19 133/53 (79) 100 05/24/18 02:00 78 19 121/56 (77) 100 05/24/18 01:06 75 23 100 05/24/18 01:00 75 19 124/48 (73) 100 05/24/18 00:00 78 19 127/47 (73) 100 05/24/18 00:00 Mechanical Ventilator 05/23/18 23:30 81 19 130/47 (74) 100 05/23/18 23:00 79 31 100 05/23/18 23:00 81 19 127/60 (82) 100 05/23/18 22:30 82 19 127/47 (73) 100 05/23/18 22:00 98.9 88 19 123/48 (73) 100 05/23/18 21:45 91 19 173/84 (113) 100 05/23/18 21:30 90 19 164/65 (98) 100 05/23/18 21:15 91 19 112/60 (77) 100 05/23/18 21:00 90 19 96/64 (75) 100 05/23/18 21:00 96/64 05/23/18 20:51 87 29 100 05/23/18 20:47 118/63 05/23/18 20:45 91 19 118/63 (81) 100 05/23/18 20:30 89 19 143/66 (91) 100 05/23/18 20:30 143/66 05/23/18 20:15 88 19 111/52 (71) 100 05/23/18 20:15 111/52 05/23/18 20:00 97.5 80 19 92/64 (73) 100 05/23/18 20:00 100 05/23/18 20:00 92/64 05/23/18 20:00 Mechanical Ventilator 05/23/18 20:00 70 05/23/18 19:45 117/53 05/23/18 19:45 80 19 117/53 (74) 100 05/23/18 19:30 125/49 05/23/18 19:30 69 19 125/49 (74) 100 05/23/18 19:24 70 14 100 Mechanical Ventilator 100 05/23/18 19:15 70 19 118/52 (74) 100 05/23/18 19:15 118/52 05/23/18 19:14 70 19 100 Mechanical Ventilator 100 05/23/18 19:08 70 19 100 05/23/18 19:00 125/48 05/23/18 19:00 70 19 122/47 (72) 100 05/23/18 18:45 93.1 70 19 122/47 (72) 100 05/23/18 18:30 71 16 128/49 (75) 100 05/23/18 18:15 71 17 144/51 (82) 100 Intake and Output 05/23/18 05/24/18 19:00 07:00 Intake Total 1185 ml 3247.500 ml Output Total 10 ml 13 ml Balance 1175 ml 3234.500 ml Intake IV Total 1185 ml 3247.500 ml Output Urine Total 10 ml 13 ml # Voids 2 # Bowel Movements 1 Laboratory Tests 05/23/18 19:40: White Blood Count 7.7, Red Blood Count 3.06L, Hemoglobin 8.2L, Hematocrit 26.6L , Mean Corpuscular Volume 87, Mean Corpuscular Hemoglobin 26.8L, Mean Corpuscular Hemoglobin Concent 30.8L, Red Cell Distribution Width 12.9, Platelet Count 155, Mean Platelet Volume 7.3, Neutrophils (%) (Auto) 86.2H, Lymphocytes (%) (Auto) 7.3L, Monocytes (%) (Auto) 6.3, Eosinophils (%) (Auto) 0.0, Basophils (%) (Auto) 0.2, Sodium Level 135L, Potassium Level 7.1*H, Chloride Level 94L, Carbon Dioxide Level 15L, Anion Gap 25H, Blood Urea Nitrogen 75H, Creatinine 7.4H, Estimat Glomerular Filtration Rate 8.8, Glucose Level 559#*H, Calcium Level 11.2H, Hepatitis Be Antibody [Pending], Hepatitis Be Antigen [Pending], Hepatitis C Antibody <0.1 05/23/18 22:00: Arterial Blood pH 7.450, Arterial Blood Partial Pressure CO2 31.7L, Arterial Blood Partial Pressure O2 147.6H, Arterial Blood HCO3 21.5L, Arterial Blood Oxygen Saturation 98.0, Arterial Blood Base Excess -1.9, Andreas Test Positive 05/23/18 23:10: Sodium Level 137, Potassium Level 4.5, Chloride Level 96L, Carbon Dioxide Level 21, Anion Gap 20H, Blood Urea Nitrogen 43H, Creatinine 4.9H, Estimat Glomerular Filtration Rate 14.3, Glucose Level 326#H, Calcium Level 9.7, Lactic Acid Level 10.80H 05/24/18 04:00: White Blood Count 9.0, Red Blood Count 2.95L, Hemoglobin 8.1L, Hematocrit 24.0L , Mean Corpuscular Volume 81, Mean Corpuscular Hemoglobin 27.5, Mean Corpuscular Hemoglobin Concent 33.8, Red Cell Distribution Width 12.5, Platelet Count 152, Mean Platelet Volume 6.9, Neutrophils (%) (Auto) 78.1H, Lymphocytes ( %) (Auto) 9.6L, Monocytes (%) (Auto) 12.0H, Eosinophils (%) (Auto) 0.1, Basophils (%) (Auto) 0.2, Sodium Level 136, Potassium Level 4.2, Chloride Level 94L, Carbon Dioxide Level 26, Anion Gap 16H, Blood Urea Nitrogen 49H, Creatinine 5.3H, Estimat Glomerular Filtration Rate 13.1, Glucose Level 253H, Calcium Level 9.7, Phosphorus Level 3.2, Magnesium Level 1.3L, Total Bilirubin 0.7, Aspartate Amino Transf (AST/SGOT) 241H, Alanine Aminotransferase (ALT/SGPT ) 166H, Alkaline Phosphatase 99, Lactate Dehydrogenase 334H, Myoglobin [Pending] , Total Protein 5.2#L, Albumin 2.5L, Globulin 2.7, Albumin/Globulin Ratio 0.9L 05/24/18 05:30: Arterial Blood pH 7.519H, Arterial Blood Partial Pressure CO2 32.7L, Arterial Blood Partial Pressure O2 137.7H, Arterial Blood HCO3 26.0, Arterial Blood Oxygen Saturation 98.0, Arterial Blood Base Excess 3.2H, Andreas Test Positive 05/24/18 08:00: Sodium Level 134L, Potassium Level 4.2, Chloride Level 94L, Carbon Dioxide Level 29, Anion Gap 11, Blood Urea Nitrogen 51H, Creatinine 5.5H, Estimat Glomerular Filtration Rate 12.5, Glucose Level 225H, Calcium Level 9.4 05/24/18 08:30: White Blood Count 10.9H, Red Blood Count 3.01L, Hemoglobin 8.3L, Hematocrit 24.4L, Mean Corpuscular Volume 81, Mean Corpuscular Hemoglobin 27.6, Mean Corpuscular Hemoglobin Concent 34.1, Red Cell Distribution Width 12.5, Platelet Count 166, Mean Platelet Volume 6.8, Neutrophils (%) (Auto) 79.8H, Lymphocytes ( %) (Auto) 8.7L, Monocytes (%) (Auto) 11.1H, Eosinophils (%) (Auto) 0.0, Basophils (%) (Auto) 0.4, Lactic Acid Level 7.70H, Total Creatine Kinase 1000H 05/24/18 10:45: Sodium Level 136, Potassium Level 4.0, Chloride Level 96L, Carbon Dioxide Level 30, Anion Gap 10, Blood Urea Nitrogen 47H, Creatinine 4.9H, Estimat Glomerular Filtration Rate 14.3, Glucose Level 174H, Calcium Level 8.6, Lactic Acid Level 5.50H Height (Feet): 5 Height (Inches): 1.00 Weight (Pounds): 141 General Appearance: no apparent distress, alert EENT: other - periorb edema Neck: normal alignment Cardiovascular: normal rate, regular rhythm Respiratory/Chest: lungs clear Abdomen: non tender Extremities: trace edema 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
[2018-05-24] MEDS ORDERED: Heparin Sod 1000 units/ml 10ml IV PRN (18:08)
[2018-05-24] MEDS ORDERED: Cathflo Alteplase 2mg Inj INJ PRN (18:09)
[2018-05-24] MEDS: Dyna-Hex 2% Top Sol 2oz TOPIC SCH (20:17)
[2018-05-24] MEDS: Atorvastatin 80mg tab ORAL SCH (21:09)
[2018-05-25] VITALS (21 sets, daily range): BP systolic 113–149; BP diastolic 46–77
--- NOTE | 2018-05-25 04:30 | Progress Note ---
DATE: 05/24/2018 CARDIOLOGY PROGRESS NOTE SUBJECTIVE: The patient remains in the intensive care unit. He underwent emergent hemodialysis last evening because of severe hyperkalemia. His heart rate has stabilized. His potassium level is now 4. Heart block has responded to the treatment of hyperkalemia. PHYSICAL EXAMINATION: VITAL SIGNS: Blood pressure 129/60, pulse 74, respiratory rate 15, and temperature 99.7. LUNGS: Clear. CARDIAC: Regular rhythm and rate. Normal S1 and S2 with a fourth heart sound. ABDOMEN: Soft and nontender. EXTREMITIES: Without edema. Dialysis catheter site clean and dry. LABORATORY DATA: White count 10.9 and hemoglobin 8.3. ABG, 7.52, 33, and 138. Sodium 134, potassium 4.2, bicarbonate 29, BUN 51, and creatinine 5.5. Lactic acid 7.7. IMPRESSION: 1. Acute renal failure with hyperkalemia, corrected following hemodialysis. 2. Hypovolemia and dehydration, improving. 3. Heart block due to hyperkalemia, resolved. 4. Hypertensive heart disease. 5. Type 2 diabetes mellitus. 6. Lactic acidosis. 7. Shock. PLAN: 1. The patient's medication list was reviewed from home. 2. We will continue to hold the beta-harley and the losartan as well as the diuretics. 3. We will continue on IV fluid hydration and close monitoring of electrolytes. 4. We will continue insulin titration by sliding scale. 5. Amlodipine will be resumed with parameters in place. 6. Continue ICU care and monitoring. Ramy Madera M.D. DR: WILMER JOB#: [id number] CC:
[2018-05-25 05:12] LABS: HEMATOCRIT 23.5 % (42.0-52.0); HEMOGLOBIN 7.9 G/DL (14.2-18.0); MEAN CORPUSCULAR VOLUME 81 FL (80-99); PLATELET COUNT 140 K/UL (150-450); RED BLOOD COUNT 2.92 M/UL (4.70-6.10); RED CELL DISTRIBUTION WIDTH 12.2 % (11.6-14.8)
[2018-05-25] MEDS: Zosyn 2.25 gm in D5W 55ml IV SCH ×3 (05:32→21:51)
[2018-05-25] MEDS: NovoLOG Insulin Flexpen SUBQ SCH ×3 (05:32→18:00)
[2018-05-25 05:37] LABS: ANION GAP 9 mmol/L (5-15); BLOOD UREA NITROGEN 51 mg/dL (7-18); CALCIUM 8.5 MG/DL (8.5-10.1); CARBON DIOXIDE 32 MMOL/L (21-32); CHLORIDE 96 MMOL/L (98-107); CREATININE 6.5 MG/DL (0.55-1.30); POTASSIUM 3.6 MMOL/L (3.5-5.1); SODIUM 137 MMOL/L (136-145)
[2018-05-25] MEDS ORDERED: Vancomycin 500 MG in NS 110 ML IV ONE ×2 (06:30→09:00)
[2018-05-25 07:22] LABS: CREATINE KINASE 1023 U/L (26-308)
[2018-05-25] MEDS: Albuterol ud Inhalation HHN SCH ×3 (07:29→19:08)
[2018-05-25] MEDS ORDERED: Pantoprazole Inj IVP SCH (09:00)
--- NOTE | 2018-05-25 09:01 | Diagnostic Imaging Report ---
Indication: Shortness of breath Technique: One view of the chest Comparison: 10 hours earlier Findings: Interim increase in hazy opacity in the right mid and lower lung. The left lung and pleural space a clear. There is interim improvement in the appearance of the left perihilar region. Impression: Over 10 hours, increasing hazy opacity in the right lung. Likely reflects increasing pleural fluid, but could also reflect increased parenchymal consolidation
--- NOTE | 2018-05-25 13:57 | Pulmonology Progress Note ---
Assessment/Plan Assessment/Plan 1. Diabetes with hypoglycemia. 2. Severe metabolic acidosis; likely due to metformin 3. Acute on chronic renal failure with uremia and hyperkalemia. 4. Arrhythmia likely due to hyperkalemia. 5. Peripheral artery disease. 6. Coronary artery stent placement. 7. Hypertension. 8. Hyperlipidemia. 9. Anemia. 10. Cholelithiasis. 11. Umbilical hernia. 12. AMI doing well trop >1.0 no chest pain no resp distress clears transfer to [facility] will need to replace groin lines Subjective Constitutional: Reports: anorexia; Denies: fever Respiratory: Denies: shortness of breath Gastrointestinal/Abdominal: Denies: nausea, vomiting Allergies: Coded Allergies: No Known Allergies (Unverified , 05/23/18) Objective Last 24 Hour Vital Signs Date Time Temp Pulse Resp B/P (MAP) Pulse Ox O2 Delivery O2 Flow Rate FiO2 05/25/18 13:00 Nasal Cannula 05/25/18 13:00 Nasal Cannula 05/25/18 13:00 83 12 120/61 (80) 100 05/25/18 12:00 81 05/25/18 12:00 Venturi Mask 14.0 05/25/18 12:00 98.7 80 15 125/77 (93) 100 05/25/18 11:00 87 14 136/61 (86) 100 05/25/18 10:00 85 14 134/76 (95) 100 05/25/18 09:00 82 14 134/65 (88) 99 05/25/18 09:00 90 134/65 05/25/18 08:03 75 18 100 Venturi Mask 8.0 40 05/25/18 08:00 77 05/25/18 08:00 Venturi Mask 14.0 05/25/18 08:00 98.5 78 14 134/77 (96) 100 05/25/18 07:29 79 12 100 Venturi Mask 8.0 40 05/25/18 07:29 Venturi Mask 8.0 40 05/25/18 07:29 100 Venturi Mask 8.0 40 05/25/18 07:00 77 16 123/63 (83) 100 05/25/18 06:00 78 16 126/56 (79) 100 05/25/18 05:00 75 16 135/52 (79) 98 05/25/18 04:00 98.4 76 16 122/49 (73) 98 05/25/18 04:00 Venturi Mask 14.0 05/25/18 04:00 81 05/25/18 03:00 73 16 125/57 (79) 98 05/25/18 02:00 83 18 113/57 (75) 98 05/25/18 01:00 78 14 128/46 (73) 98 05/25/18 00:00 98.6 70 16 117/61 (79) 98 05/25/18 00:00 Venturi Mask 14.0 05/25/18 00:00 85 05/24/18 23:00 78 16 112/47 (68) 99 05/24/18 22:00 77 14 125/58 (80) 97 05/24/18 21:00 76 14 114/50 (71) 96 05/24/18 20:00 Venturi Mask 14.0 05/24/18 20:00 Venturi Mask 8.0 40 05/24/18 20:00 76 05/24/18 20:00 98.2 82 14 132/50 (77) 96 05/24/18 20:00 14.0 05/24/18 19:59 99 Venturi Mask 8.0 40 05/24/18 19:58 78 18 Venturi Mask 8.0 40 05/24/18 19:56 81 18 100 Venturi Mask 8.0 40 05/24/18 19:43 78 18 99 Venturi Mask 8.0 40 05/24/18 19:15 85 14 89/27 (47) 85 05/24/18 19:00 60 16 62/19 (33) 95 05/24/18 18:30 64 22 78/18 (38) 92 05/24/18 18:00 82 17 128/49 (75) 97 05/24/18 17:00 81 15 138/50 (79) 97 05/24/18 16:08 78 05/24/18 16:00 99.4 79 15 129/58 (81) 99 05/24/18 16:00 Venturi Mask 14.0 05/24/18 16:00 14.0 05/24/18 15:00 75 15 114/50 (71) 97 05/24/18 14:00 76 14 120/57 (78) 98 Intake and Output 05/24/18 05/25/18 19:00 07:00 Intake Total 542 ml Output Total 85 ml 140 ml Balance 457 ml -140 ml Intake IV Total 542 ml Output Urine Total 85 ml 140 ml # Bowel Movements 1 General Appearance: no acute distress HEENT: atraumatic Respiratory/Chest: lungs clear Cardiovascular: normal rate Abdomen: soft, non tender Microbiology Date/Time Source Procedure Growth Status 05/23/18 17:05 Blood Blood Culture - Preliminary NO GROWTH AFTER 24 HOURS Resulted 05/23/18 17:05 Blood Blood Culture - Preliminary NO GROWTH AFTER 24 HOURS Resulted 05/23/18 08:15 Blood Blood Culture - Preliminary NO GROWTH AFTER 24 HOURS Resulted 05/23/18 08:15 Blood Blood Culture - Preliminary NO GROWTH AFTER 24 HOURS Resulted 05/23/18 08:01 Nasal Nares Influenza Types A,B Antigen (BANDAR) - Final Complete 05/24/18 05:30 Indwelling Cath Urine Culture - Preliminary NO GROWTH AFTER 24 HOURS Resulted Laboratory Tests 05/25/18 04:55: White Blood Count 9.0, Red Blood Count 2.92L, Hemoglobin 7.9L, Hematocrit 23.5L , Mean Corpuscular Volume 81, Mean Corpuscular Hemoglobin 27.0, Mean Corpuscular Hemoglobin Concent 33.5, Red Cell Distribution Width 12.2, Platelet Count 140L, Mean Platelet Volume 8.2, Neutrophils (%) (Auto) , Lymphocytes (%) ( Auto) , Monocytes (%) (Auto) , Eosinophils (%) (Auto) , Basophils (%) (Auto) , Differential Total Cells Counted 100, Neutrophils % (Manual) 87H, Lymphocytes % (Manual) 9L, Monocytes % (Manual) 4, Eosinophils % (Manual) 0, Basophils % ( Manual) 0, Band Neutrophils 0, Platelet Estimate DecreasedL, Platelet Morphology Normal, Hypochromasia 1+, Dalton Cells 1+, Sodium Level 137, Potassium Level 3.6, Chloride Level 96L, Carbon Dioxide Level 32, Anion Gap 9, Blood Urea Nitrogen 51H, Creatinine 6.5H, Estimat Glomerular Filtration Rate 10.3, Glucose Level 77, Lactic Acid Level 3.70H, Calcium Level 8.5, Phosphorus Level 3.8, Total Creatine Kinase 1023H, Random Vancomycin Level 14.6 05/25/18 05:00: Troponin I 1.165H 12/6/18 06:50: Lactic Acid Level 3.20H Current Medications Medications (Trade) Dose Ordered Sig/Isabelle Route PRN Reason Start Time Stop Time Status Last Admin Dose Admin Albuterol Sulfate (Proventil) 10 mg TIDRT HHN 05/23/18 19:00 05/28/18 18:59 05/25/18 07:29 Alteplase, Recombinant (Cathflo) 2 mg ONCE PRN INJ CLOGGED DIALYSIS PORT 05/24/18 18:09 05/25/18 23:59 Amlodipine Besylate (Norvasc) 5 mg DAILY ORAL 05/25/18 09:00 06/24/18 08:59 Atorvastatin Calcium (Lipitor) 80 mg BEDTIME ORAL 05/24/18 21:00 06/23/18 20:59 05/24/18 21:09 Chlorhexidine Gluconate (Ashanti-Hex 2%) 1 applic DAILY@2000 TOPIC 05/23/18 20:00 06/22/18 19:59 05/24/18 20:17 Clopidogrel Bisulfate (Plavix) 75 mg DAILY ORAL 05/25/18 09:00 06/24/18 08:59 05/25/18 09:24 Dextrose (Dextrose 50%) 25 ml Q30M PRN IV Hypoglycemia 05/23/18 14:45 06/22/18 14:44 Dextrose (Dextrose 50%) 50 ml Q30M PRN IV Hypoglycemia 05/23/18 14:45 06/22/18 14:44 05/24/18 23:28 Heparin Sodium (Porcine) (Heparin Sod 1000 units/ml 10ml) 2,000 unit ONCE PRN IV DIALYSIS 05/24/18 18:08 05/25/18 23:59 05/25/18 13:18 Insulin Aspart (NovoLOG) Q6HR SUBQ 05/23/18 18:00 06/22/18 17:59 05/24/18 12:00 Norepinephrine Bitartrate 4 mg/ Dextrose 250 ml @ 0 mls/hr Q24H IV 05/23/18 16:00 06/22/18 15:59 05/23/18 17:08 Pantoprazole (Protonix) 40 mg DAILY IVP 05/25/18 09:00 06/24/18 08:59 05/25/18 09:24 Piperacillin Sod/ Tazobactam Sod 2.25 gm/Dextrose 55 ml @ 110 mls/hr Q8HR IV 05/23/18 22:00 05/28/18 21:59 05/25/18 05:32 Sodium Chloride 1,000 ml @ 500 mls/hr Q2H PRN IVLG sbp<90 during hd 05/24/18 18:08 05/25/18 23:59 Vancomycin HCl (Vanco rx to dose) 1 ea DAILY PRN MISC Per rx protocol 05/23/18 18:00 06/22/18 17:59 Mike Randle MD May 25, 2018 13:57
--- NOTE | 2018-05-25 19:20 | Nephrology Progress Note ---
Assessment/Plan Problem List: (1) Acute coronary syndromes (2) Rhabdomyolysis (3) Hyperkalemia (4) Hypovolemic shock (5) Lactic acidosis (6) Acute renal failure (7) Hypoglycemia (8) Diabetes Plan better after dialysis, possible lactic acidosis from m metformin, anuric, now more urine serial HD, epo empiric atb pending culture Subjective Constitutional: Reports: weakness HEENT: Reports: no symptoms Genitourinary: Reports: no symptoms Neurologic/Psychiatric: Reports: no symptoms Objective Objective Last 24 Hour Vital Signs Date Time Temp Pulse Resp B/P (MAP) Pulse Ox O2 Delivery O2 Flow Rate FiO2 05/25/18 19:11 Nasal Cannula 2.0 28 05/25/18 19:11 100 Nasal Cannula 2.0 28 05/25/18 19:10 90 15 100 Nasal Cannula 2.0 28 05/25/18 18:00 88 15 149/59 (89) 100 05/25/18 17:00 78 15 121/64 (83) 100 05/25/18 16:00 98.2 80 13 126/70 (88) 100 05/25/18 16:00 Nasal Cannula 2.0 05/25/18 15:41 74 05/25/18 15:00 91 17 126/66 (86) 100 05/25/18 14:00 78 13 114/69 (84) 100 05/25/18 13:00 Nasal Cannula 05/25/18 13:00 Nasal Cannula 05/25/18 13:00 83 12 120/61 (80) 100 05/25/18 12:00 81 05/25/18 12:00 Venturi Mask 14.0 05/25/18 12:00 98.7 80 15 125/77 (93) 100 05/25/18 11:00 87 14 136/61 (86) 100 05/25/18 10:00 85 14 134/76 (95) 100 05/25/18 09:00 82 14 134/65 (88) 99 05/25/18 09:00 90 134/65 05/25/18 08:03 75 18 100 Venturi Mask 8.0 40 05/25/18 08:00 77 05/25/18 08:00 Venturi Mask 14.0 05/25/18 08:00 98.5 78 14 134/77 (96) 100 05/25/18 07:29 79 12 100 Venturi Mask 8.0 40 05/25/18 07:29 Venturi Mask 8.0 40 05/25/18 07:29 100 Venturi Mask 8.0 40 05/25/18 07:00 77 16 123/63 (83) 100 05/25/18 06:00 78 16 126/56 (79) 100 05/25/18 05:00 75 16 135/52 (79) 98 05/25/18 04:00 98.4 76 16 122/49 (73) 98 05/25/18 04:00 Venturi Mask 14.0 05/25/18 04:00 81 05/25/18 03:00 73 16 125/57 (79) 98 05/25/18 02:00 83 18 113/57 (75) 98 05/25/18 01:00 78 14 128/46 (73) 98 05/25/18 00:00 98.6 70 16 117/61 (79) 98 05/25/18 00:00 Venturi Mask 14.0 05/25/18 00:00 85 05/24/18 23:00 78 16 112/47 (68) 99 05/24/18 22:00 77 14 125/58 (80) 97 05/24/18 21:00 76 14 114/50 (71) 96 05/24/18 20:00 Venturi Mask 14.0 05/24/18 20:00 Venturi Mask 8.0 40 05/24/18 20:00 76 05/24/18 20:00 98.2 82 14 132/50 (77) 96 05/24/18 20:00 14.0 05/24/18 19:59 99 Venturi Mask 8.0 40 05/24/18 19:58 78 18 Venturi Mask 8.0 40 05/24/18 19:56 81 18 100 Venturi Mask 8.0 40 05/24/18 19:43 78 18 99 Venturi Mask 8.0 40 Intake and Output 05/24/18 05/25/18 19:00 07:00 Intake Total 542 ml Output Total 85 ml 140 ml Balance 457 ml -140 ml IV Total 542 ml Output Urine Total 85 ml 140 ml # Bowel Movements 1 Laboratory Tests 05/25/18 04:55: White Blood Count 9.0, Red Blood Count 2.92L, Hemoglobin 7.9L, Hematocrit 23.5L , Mean Corpuscular Volume 81, Mean Corpuscular Hemoglobin 27.0, Mean Corpuscular Hemoglobin Concent 33.5, Red Cell Distribution Width 12.2, Platelet Count 140L, Mean Platelet Volume 8.2, Neutrophils (%) (Auto) , Lymphocytes (%) ( Auto) , Monocytes (%) (Auto) , Eosinophils (%) (Auto) , Basophils (%) (Auto) , Differential Total Cells Counted 100, Neutrophils % (Manual) 87H, Lymphocytes % (Manual) 9L, Monocytes % (Manual) 4, Eosinophils % (Manual) 0, Basophils % ( Manual) 0, Band Neutrophils 0, Platelet Estimate DecreasedL, Platelet Morphology Normal, Hypochromasia 1+, Lexa Cells 1+, Sodium Level 137, Potassium Level 3.6, Chloride Level 96L, Carbon Dioxide Level 32, Anion Gap 9, Blood Urea Nitrogen 51H, Creatinine 6.5H, Estimat Glomerular Filtration Rate 10.3, Glucose Level 77, Lactic Acid Level 3.70H, Calcium Level 8.5, Phosphorus Level 3.8, Total Creatine Kinase 1023H, Random Vancomycin Level 14.6 05/25/18 05:00: Troponin I 1.165H 05/25/18 06:50: Lactic Acid Level 3.20H Height (Feet): 5 Height (Inches): 1.00 Weight (Pounds): 139 General Appearance: no apparent distress, alert EENT: normal ENT inspection Neck: normal alignment Cardiovascular: normal rate, regular rhythm Respiratory/Chest: rhonchi - bilaterally Abdomen: non tender Extremities: trace edema 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
[2018-05-25] MEDS: Atorvastatin 80mg tab ORAL SCH (20:18)
[2018-05-25] MEDS: Dyna-Hex 2% Top Sol 2oz TOPIC SCH (20:18)
[2018-05-25] MEDS ORDERED: Carvedilol 6.25mg Tab ORAL SCH (21:00)
[2018-05-26] VITALS (11 sets, daily range): BP systolic 113–161; BP diastolic 57–77
--- NOTE | 2018-05-26 04:45 | Progress Note ---
DATE: 05/25/2018 CARDIOLOGY PROGRESS NOTE SUBJECTIVE: The patient's condition remains critical. He is in the intensive care unit. He was noted to have an elevated troponin today 1.65, but the patient has no complaints of chest pain. He denies shortness of breath. He notes feeling poorly due to weakness and poor appetite. OBJECTIVE: VITAL SIGNS: Blood pressure 120/61, pulse 83, respiratory rate 12 to 14, and he is afebrile. NECK: With mildly elevated jugular venous pressure. LUNGS: Diminished breath sounds and few rales. CARDIAC: Regular rhythm and rate. Normal S1 and S2 with a fourth heart sound. ABDOMEN: Soft. EXTREMITIES: Trace edema. Groin catheter site clean and dry. IMAGING DATA: EKG pending. LABORATORY DATA: Lactic acid 3.7. BUN 61, creatinine 6.5, and potassium 3.6. IMPRESSION: 1. Acute renal failure. 2. Acute myocardial infarction, precipitated by hypoperfusion. 3. Lactic acidosis. 4. Rhabdomyolysis. 5. Metabolic and toxic encephalopathies. 6. Status post hyperkalemia induced bradyarrhythmias. 7. Remains critical and guarded. PLAN: 1. Resume low-dose beta-harley and titrate not resumed losartan yet. 2. Continue with anti-platelet therapy. 3. Hemodialysis with ultrafiltration per Renal. 4. DVT prophylaxis. 5. Review echocardiogram and electrocardiogram. Ramy Madera M.D. DR: WILMER JOB#: [id number] CC:
[2018-05-26] MEDS: Zosyn 2.25 gm in D5W 55ml IV SCH (05:27)
[2018-05-26 05:30] LABS: HEMATOCRIT 22.8 % (42.0-52.0); HEMOGLOBIN 7.5 G/DL (14.2-18.0); MEAN CORPUSCULAR VOLUME 81 FL (80-99); PLATELET COUNT 133 K/UL (150-450); RED BLOOD COUNT 2.82 M/UL (4.70-6.10); RED CELL DISTRIBUTION WIDTH 12.5 % (11.6-14.8); WHITE BLOOD COUNT 8.4 K/UL (4.8-10.8)
[2018-05-26] MEDS: NovoLOG Insulin Flexpen SUBQ SCH ×5 (05:37→23:51)
[2018-05-26 05:50] LABS: ALANINE AMINOTRANSFERASE 90 U/L (12-78); ALBUMIN 2.1 G/DL (3.4-5.0); ALBUMIN/GLOBULIN RATIO 0.7 (1.0-2.7); ALKALINE PHOSPHATASE 79 U/L (46-116); ANION GAP 6 mmol/L (5-15); ASPARTATE AMINO TRANSFERASE 90 U/L (15-37); BILIRUBIN,TOTAL 0.6 MG/DL (0.2-1.0); BLOOD UREA NITROGEN 38 mg/dL (7-18); CALCIUM 7.9 MG/DL (8.5-10.1); CARBON DIOXIDE 35 MMOL/L (21-32); CHLORIDE 100 MMOL/L (98-107); CREATININE 6.1 MG/DL (0.55-1.30); POTASSIUM 3.1 MMOL/L (3.5-5.1); SODIUM 141 MMOL/L (136-145)
[2018-05-26 05:53] LABS: CHOLESTEROL 92 MG/DL (< 200); CREATINE KINASE 570 U/L (26-308); HDL CHOLESTEROL 34 MG/DL (40-60); PHOSPHORUS 3.4 MG/DL (2.5-4.9); TRIGLYCERIDES 64 MG/DL (30-150)
--- NOTE | 2018-05-26 07:59 | Nephrology Progress Note ---
Assessment/Plan Problem List: (1) Acute coronary syndromes (2) Rhabdomyolysis (3) Hyperkalemia (4) Hypovolemic shock (5) Lactic acidosis (6) Acute renal failure (7) Hypoglycemia (8) Diabetes Plan better after dialysis, possible lactic acidosis from m metformin, anuric, now more urine serial HD, epo empiric atb pending culture stop soon, [facility] Subjective Constitutional: Reports: weakness HEENT: Reports: no symptoms Genitourinary: Reports: no symptoms Neurologic/Psychiatric: Reports: no symptoms Objective Objective Last 24 Hour Vital Signs Date Time Temp Pulse Resp B/P (MAP) Pulse Ox O2 Delivery O2 Flow Rate FiO2 05/26/18 06:00 74 16 161/68 (99) 100 05/26/18 05:00 66 14 144/64 (90) 100 05/26/18 04:00 98.8 66 14 120/77 (91) 100 05/26/18 04:00 77 05/26/18 04:00 Nasal Cannula 2.0 05/26/18 03:00 67 13 113/61 (78) 100 05/26/18 02:00 74 13 140/68 (92) 100 05/26/18 01:00 77 14 129/57 (81) 100 05/26/18 00:00 60 05/26/18 00:00 98.4 71 13 118/64 (82) 100 05/26/18 00:00 Nasal Cannula 2.0 05/25/18 23:00 78 16 125/55 (78) 100 05/25/18 20:18 92 123/53 05/25/18 20:00 74 05/25/18 20:00 Nasal Cannula 2.0 05/25/18 19:30 86 14 100 Nasal Cannula 2.0 28 05/25/18 19:11 Nasal Cannula 2.0 28 05/25/18 19:11 100 Nasal Cannula 2.0 28 05/25/18 19:10 90 15 100 Nasal Cannula 2.0 28 05/25/18 19:00 84 14 128/60 (82) 100 05/25/18 18:00 88 15 149/59 (89) 100 05/25/18 17:00 78 15 121/64 (83) 100 05/25/18 16:00 98.2 80 13 126/70 (88) 100 05/25/18 16:00 Nasal Cannula 2.0 05/25/18 15:41 74 05/25/18 15:00 91 17 126/66 (86) 100 05/25/18 14:00 78 13 114/69 (84) 100 05/25/18 13:00 Nasal Cannula 05/25/18 13:00 Nasal Cannula 05/25/18 13:00 83 12 120/61 (80) 100 05/25/18 12:00 81 05/25/18 12:00 Venturi Mask 14.0 05/25/18 12:00 98.7 80 15 125/77 (93) 100 05/25/18 11:00 87 14 136/61 (86) 100 05/25/18 10:00 85 14 134/76 (95) 100 05/25/18 09:00 82 14 134/65 (88) 99 05/25/18 09:00 90 134/65 05/25/18 08:03 75 18 100 Venturi Mask 8.0 40 05/25/18 08:00 77 05/25/18 08:00 Venturi Mask 14.0 05/25/18 08:00 98.5 78 14 134/77 (96) 100 Intake and Output 05/25/18 05/26/18 18:59 06:59 Intake Total 2135 ml 320 ml Output Total 2265 ml 430 ml Balance -130 ml -110 ml Intake Oral 80 ml 320 ml IV Total 55 ml Hemodialysis 2000 ml Output Urine Total 265 ml 430 ml Hemodialysis UF 2000 ml # Bowel Movements 4 Laboratory Tests 05/25/18 19:50: Troponin I 0.728H 05/25/18 20:25: Stool Occult Blood [Pending] 05/26/18 01:40: Stool Occult Blood [Pending] 05/26/18 02:00: Troponin I 0.840H 05/26/18 04:30: White Blood Count 8.4, Red Blood Count 2.82L, Hemoglobin 7.5L, Hematocrit 22.8L , Mean Corpuscular Volume 81, Mean Corpuscular Hemoglobin 26.7L, Mean Corpuscular Hemoglobin Concent 33.0, Red Cell Distribution Width 12.5, Platelet Count 133L, Mean Platelet Volume 8.5, Neutrophils (%) (Auto) , Lymphocytes (%) ( Auto) , Monocytes (%) (Auto) , Eosinophils (%) (Auto) , Basophils (%) (Auto) , Differential Total Cells Counted 100, Neutrophils % (Manual) 81H, Lymphocytes % (Manual) 7L, Monocytes % (Manual) 8, Eosinophils % (Manual) 1, Basophils % ( Manual) 0, Band Neutrophils 3, Platelet Estimate DecreasedL, Platelet Morphology Normal, Baggs Cells Occasional, Acanthocytes 1+, Stool Occult Blood [ Pending], Sodium Level 141, Potassium Level 3.1L, Chloride Level 100, Carbon Dioxide Level 35H, Anion Gap 6, Blood Urea Nitrogen 38H, Creatinine 6.1H, Estimat Glomerular Filtration Rate 11.2, Glucose Level 42L, Calcium Level 7.9L, Phosphorus Level 3.4, Magnesium Level 1.6L, Total Bilirubin 0.6, Aspartate Amino Transf (AST/SGOT) 90H, Alanine Aminotransferase (ALT/SGPT) 90H, Alkaline Phosphatase 79, Total Creatine Kinase 570H, Pro-B-Type Natriuretic Peptide 6522H , Total Protein 5.2L, Albumin 2.1L, Globulin 3.1, Albumin/Globulin Ratio 0.7L, Triglycerides Level 64, Cholesterol Level 92, LDL Cholesterol 58, HDL Cholesterol 34L, Cholesterol/HDL Ratio 2.7L, Random Vancomycin Level 17.2 Height (Feet): 5 Height (Inches): 1.00 Weight (Pounds): 135 General Appearance: no apparent distress, alert EENT: normal ENT inspection Neck: non-tender, normal alignment Cardiovascular: regular rhythm Respiratory/Chest: lungs clear Abdomen: non tender, soft Extremities: trace edema 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
[2018-05-26] MEDS: Albuterol ud Inhalation HHN SCH ×3 (08:16→20:11)
--- NOTE | 2018-05-26 08:29 | Diagnostic Imaging Report ---
Indication: Shortness of breath Technique: One view of the chest Comparison: 05/24/2018 Findings: Right mid and lower lung hazy opacity, perihilar interstitial congestive changes persist, stable. There is very slight blunting of left costophrenic sulcus. The heart size is normal. There are degenerative changes of the left shoulder Impression: Hazy right lung opacity, likely reflects a small amount of pleural fluid. Possible new or increased small left pleural effusion Stable generalized perihilar interstitial congestion
[2018-05-26] MEDS ORDERED: Pantoprazole Inj IVP SCH (09:00)
--- NOTE | 2018-05-26 09:25 | Pulmonology Progress Note ---
Assessment/Plan Assessment/Plan 1. Diabetes with hypoglycemia. 2. Severe metabolic acidosis; likely due to metformin 3. Acute on chronic renal failure with uremia and hyperkalemia. 4. Arrhythmia likely due to hyperkalemia. 5. Peripheral artery disease. 6. Coronary artery stent placement. 7. Hypertension. 8. Hyperlipidemia. 9. Anemia. 10. Cholelithiasis. 11. Umbilical hernia. 12. AMI doing well, output better echo pdg dc groin IV, Vicente; will need to move HD access trop >1.0 - cardiology following no chest pain no resp distress advance diet no need for transfusion, rx EPO Subjective Constitutional: Reports: anorexia; Denies: fever Respiratory: Denies: shortness of breath Allergies: Coded Allergies: No Known Allergies (Unverified , 05/23/18) Objective Last 24 Hour Vital Signs Date Time Temp Pulse Resp B/P (MAP) Pulse Ox O2 Delivery O2 Flow Rate FiO2 05/26/18 09:05 85 18 99 Nasal Cannula 2.0 28 05/26/18 08:21 99 Nasal Cannula 2.0 28 05/26/18 08:21 Nasal Cannula 2.0 28 05/26/18 08:21 79 18 99 Nasal Cannula 2.0 28 05/26/18 08:00 Nasal Cannula 2.0 05/26/18 08:00 98.1 82 18 147/67 (93) 95 05/26/18 07:49 84 05/26/18 06:00 74 16 161/68 (99) 100 05/26/18 05:00 66 14 144/64 (90) 100 05/26/18 04:00 98.8 66 14 120/77 (91) 100 05/26/18 04:00 77 05/26/18 04:00 Nasal Cannula 2.0 05/26/18 03:00 67 13 113/61 (78) 100 05/26/18 02:00 74 13 140/68 (92) 100 05/26/18 01:00 77 14 129/57 (81) 100 05/26/18 00:00 60 05/26/18 00:00 98.4 71 13 118/64 (82) 100 05/26/18 00:00 Nasal Cannula 2.0 05/25/18 23:00 78 16 125/55 (78) 100 05/25/18 20:18 92 123/53 05/25/18 20:00 74 05/25/18 20:00 Nasal Cannula 2.0 05/25/18 19:30 86 14 100 Nasal Cannula 2.0 28 05/25/18 19:11 Nasal Cannula 2.0 28 05/25/18 19:11 100 Nasal Cannula 2.0 28 05/25/18 19:10 90 15 100 Nasal Cannula 2.0 28 05/25/18 19:00 84 14 128/60 (82) 100 05/25/18 18:00 88 15 149/59 (89) 100 05/25/18 17:00 78 15 121/64 (83) 100 05/25/18 16:00 98.2 80 13 126/70 (88) 100 05/25/18 16:00 Nasal Cannula 2.0 05/25/18 15:41 74 05/25/18 15:00 91 17 126/66 (86) 100 05/25/18 14:00 78 13 114/69 (84) 100 05/25/18 13:00 Nasal Cannula 05/25/18 13:00 Nasal Cannula 05/25/18 13:00 83 12 120/61 (80) 100 05/25/18 12:00 81 05/25/18 12:00 Venturi Mask 14.0 05/25/18 12:00 98.7 80 15 125/77 (93) 100 05/25/18 11:00 87 14 136/61 (86) 100 05/25/18 10:00 85 14 134/76 (95) 100 Intake and Output 05/25/18 05/26/18 18:59 06:59 Intake Total 2135 ml 320 ml Output Total 2265 ml 430 ml Balance -130 ml -110 ml Intake Oral 80 ml 320 ml IV Total 55 ml Hemodialysis 2000 ml Output Urine Total 265 ml 430 ml Hemodialysis UF 2000 ml # Bowel Movements 4 General Appearance: no acute distress Respiratory/Chest: lungs clear Cardiovascular: normal rate Microbiology Date/Time Source Procedure Growth Status 05/23/18 17:05 Blood Blood Culture - Preliminary NO GROWTH AFTER 48 HOURS Resulted 05/23/18 17:05 Blood Blood Culture - Preliminary NO GROWTH AFTER 48 HOURS Resulted 05/24/18 05:30 Indwelling Cath Urine Culture - Final NO GROWTH AFTER 48 HOURS Complete 05/24/18 05:30 Rectum VRE Culture - Final Enterococcus Faecalis - Vre Complete 05/24/18 05:30 Rectum - Final NO CARBAPENEM-RESISTANT ENTEROBACTERI... Complete Laboratory Tests 05/25/18 19:50: Troponin I 0.728H 05/25/18 20:25: Stool Occult Blood [Pending] 05/26/18 01:40: Stool Occult Blood [Pending] 05/26/18 02:00: Troponin I 0.840H 05/26/18 04:30: White Blood Count 8.4, Red Blood Count 2.82L, Hemoglobin 7.5L, Hematocrit 22.8L , Mean Corpuscular Volume 81, Mean Corpuscular Hemoglobin 26.7L, Mean Corpuscular Hemoglobin Concent 33.0, Red Cell Distribution Width 12.5, Platelet Count 133L, Mean Platelet Volume 8.5, Neutrophils (%) (Auto) , Lymphocytes (%) ( Auto) , Monocytes (%) (Auto) , Eosinophils (%) (Auto) , Basophils (%) (Auto) , Differential Total Cells Counted 100, Neutrophils % (Manual) 81H, Lymphocytes % (Manual) 7L, Monocytes % (Manual) 8, Eosinophils % (Manual) 1, Basophils % ( Manual) 0, Band Neutrophils 3, Platelet Estimate DecreasedL, Platelet Morphology Normal, Germfask Cells Occasional, Acanthocytes 1+, Stool Occult Blood [ Pending], Sodium Level 141, Potassium Level 3.1L, Chloride Level 100, Carbon Dioxide Level 35H, Anion Gap 6, Blood Urea Nitrogen 38H, Creatinine 6.1H, Estimat Glomerular Filtration Rate 11.2, Glucose Level 42L, Calcium Level 7.9L, Phosphorus Level 3.4, Magnesium Level 1.6L, Total Bilirubin 0.6, Aspartate Amino Transf (AST/SGOT) 90H, Alanine Aminotransferase (ALT/SGPT) 90H, Alkaline Phosphatase 79, Total Creatine Kinase 570H, Pro-B-Type Natriuretic Peptide 6522H , Total Protein 5.2L, Albumin 2.1L, Globulin 3.1, Albumin/Globulin Ratio 0.7L, Triglycerides Level 64, Cholesterol Level 92, LDL Cholesterol 58, HDL Cholesterol 34L, Cholesterol/HDL Ratio 2.7L, Random Vancomycin Level 17.2 Current Medications Medications (Trade) Dose Ordered Sig/Isabelle Route PRN Reason Start Time Stop Time Status Last Admin Dose Admin Albuterol Sulfate (Proventil) 10 mg TIDRT N 05/26/18 07:00 05/28/18 18:59 05/26/18 08:16 Amlodipine Besylate (Norvasc) 5 mg DAILY ORAL 05/26/18 09:00 06/24/18 08:59 Atorvastatin Calcium (Lipitor) 80 mg BEDTIME ORAL 05/26/18 21:00 06/23/18 20:59 Carvedilol (Coreg) 6.25 mg EVERY 12 HOURS ORAL 05/26/18 09:00 06/24/18 20:59 Chlorhexidine Gluconate (Ashanti-Hex 2%) 1 applic DAILY@2000 TOPIC 05/26/18 20:00 06/22/18 19:59 Clopidogrel Bisulfate (Plavix) 75 mg DAILY ORAL 05/26/18 09:00 06/24/18 08:59 Dextrose (Dextrose 50%) 25 ml Q30M PRN IV Hypoglycemia 05/26/18 06:45 06/22/18 14:44 Dextrose (Dextrose 50%) 50 ml Q30M PRN IV Hypoglycemia 05/26/18 06:45 06/22/18 14:44 Epoetin Chinedu (Procrit (for ESRD on dialysis)) 7,000 units MON-WED-FRI SUBQ 05/26/18 21:00 06/25/18 20:59 Heparin Sodium (Porcine) (Heparin Sod 1000 units/ml 10ml) 2,000 unit ONCE IV 05/27/18 06:00 05/27/18 18:00 Insulin Aspart (NovoLOG) Q6HR SUBQ 05/26/18 12:00 06/22/18 17:59 Iron Sucrose 100 mg/Sodium Chloride 60 ml @ 240 mls/hr BEDTIME IV 05/26/18 21:00 05/30/18 21:14 Magnesium Oxide (Mag-Ox 400mg) 400 mg THREE TIMES A DAY ORAL 05/26/18 09:00 06/25/18 08:59 Pantoprazole (Protonix) 40 mg DAILY IVP 05/26/18 09:00 06/24/18 08:59 Piperacillin Sod/ Tazobactam Sod 2.25 gm/Dextrose 55 ml @ 110 mls/hr Q8HR IV 05/26/18 14:00 05/28/18 21:59 Potassium Chloride (K-Dur) 40 meq ONCE ORAL 05/26/18 09:00 05/26/18 10:00 Sodium Chloride 1,000 ml @ 500 mls/hr Q2H PRN IVLG sbp<90 during hd 05/27/18 06:00 05/27/18 18:00 Vancomycin HCl (Vanco rx to dose) 1 ea DAILY PRN MISC Per rx protocol 05/26/18 09:00 06/22/18 17:59 Mike Randle MD May 26, 2018 09:25
[2018-05-26] MEDS: Carvedilol 6.25mg Tab ORAL SCH ×2 (09:51→20:40)
[2018-05-26] MEDS: Magnesium Oxide 400mg tab ORAL SCH ×3 (09:51→17:40)
--- NOTE | 2018-05-26 11:58 | Diagnostic Imaging Report ---
APPROVED REPORT CPT Code: 62170 BILATERAL: Imaging reveals a patent deep venous system bilaterally. There is no evidence of thrombus within the femoral, popliteal or tibial segments. The greater saphenous veins are also within normal limits. Doppler indicates normal spontaneous flow within these segments.
--- NOTE | 2018-05-26 13:03 | Anethesia Preoperative Eval ---
Anesthesia Pre-op PMH/ROS General Date of Evaluation: May 26, 2018 Time of Evaluation: 12:37 Anesthesiologist: Bisi ASA Score: ASA 4 Mallampati Score Class I : Soft palate, uvula, fauces, pillars visible Class II: Soft palate, uvula, fauces visible Class III: Soft palate, base of uvula visible Class IV: Only hard plate visible Mallampati Classification: Class II Surgeon: Deepthi Diagnosis: ESRD/CRF Surgical Procedure: Perma Cath Insertion Anesthesia History: none Family History: no anesthesia problems Allergies: Coded Allergies: No Known Allergies (Unverified , 05/23/18) Medications: see eMAR Patient NPO?: Yes Past Medical History Cardiovascular: Reports: HTN, CAD - Stent, other - HL Gastrointestinal/Genitourinary: Reports: CRI, ESRD, other - Umbilical Hernia Neurologic/Psychiatric: Reports: dementia - AMS Endocrine: Reports: DM Hematology/Immune: Reports: anemia PSxH Narrative: Umbilical Hernia Anesthesia Pre-op Phys. Exam Physician Exam Last Vital Signs Date Time Temp Pulse Resp B/P (MAP) Pulse Ox O2 Delivery O2 Flow Rate FiO2 05/26/18 12:40 81 18 97 Room Air 21 05/26/18 12:00 2.0 05/26/18 12:00 97.9 139/74 (95) Constitutional: NAD Neurologic: CN 2-12 intact Cardiovascular: RRR Respiratory: CTA Gastrointestinal: S/NT/ND Airway Exam Mallampati Score: Class II MO: limited ROM: limited Teeth: missing, intact Anesthesia Pre-op A/P Labs Hematology Test 05/26/18 04:30 White Blood Count 8.4 K/UL (4.8-10.8) Red Blood Count 2.82 M/UL (4.70-6.10) L Hemoglobin 7.5 G/DL (14.2-18.0) L Hematocrit 22.8 % (42.0-52.0) L Mean Corpuscular Volume 81 FL (80-99) Mean Corpuscular Hemoglobin 26.7 PG (27.0-31.0) L Mean Corpuscular Hemoglobin Concent 33.0 G/DL (32.0-36.0) Red Cell Distribution Width 12.5 % (11.6-14.8) Platelet Count 133 K/UL (150-450) L Mean Platelet Volume 8.5 FL (6.5-10.1) Neutrophils (%) (Auto) % (45.0-75.0) Lymphocytes (%) (Auto) % (20.0-45.0) Monocytes (%) (Auto) % (1.0-10.0) Eosinophils (%) (Auto) % (0.0-3.0) Basophils (%) (Auto) % (0.0-2.0) Differential Total Cells Counted 100 Neutrophils % (Manual) 81 % (45-75) H Lymphocytes % (Manual) 7 % (20-45) L Monocytes % (Manual) 8 % (1-10) Eosinophils % (Manual) 1 % (0-3) Basophils % (Manual) 0 % (0-2) Band Neutrophils 3 % (0-8) Platelet Estimate Decreased L Platelet Morphology Normal Janet Cells Occasional Acanthocytes 1+ Chemistry Test 05/25/18 19:50 05/26/18 02:00 05/26/18 04:30 05/26/18 10:10 Troponin I 0.728 ng/mL (0.000-0.056) 0.840 ng/mL (0.000-0.056) 0.647 ng/mL (0.000-0.056) Sodium Level 141 MMOL/L (136-145) Potassium Level 3.1 MMOL/L (3.5-5.1) L Chloride Level 100 MMOL/L (98-107) Carbon Dioxide Level 35 MMOL/L (21-32) H Anion Gap 6 mmol/L (5-15) Blood Urea Nitrogen 38 mg/dL (7-18) H Creatinine 6.1 MG/DL (0.55-1.30) H Estimat Glomerular Filtration Rate 11.2 mL/min (>60) Glucose Level 42 MG/DL (74-106) L Calcium Level 7.9 MG/DL (8.5-10.1) L Phosphorus Level 3.4 MG/DL (2.5-4.9) Magnesium Level 1.6 MG/DL (1.8-2.4) L Total Bilirubin 0.6 MG/DL (0.2-1.0) Aspartate Amino Transf (AST/SGOT) 90 U/L (15-37) H Alanine Aminotransferase (ALT/SGPT) 90 U/L (12-78) H Alkaline Phosphatase 79 U/L (46-116) Total Creatine Kinase 570 U/L (26-308) H Pro-B-Type Natriuretic Peptide 6522 pg/mL (0-125) H Total Protein 5.2 G/DL (6.4-8.2) L Albumin 2.1 G/DL (3.4-5.0) L Globulin 3.1 g/dL Albumin/Globulin Ratio 0.7 (1.0-2.7) L Triglycerides Level 64 MG/DL (30-150) Cholesterol Level 92 MG/DL (< 200) LDL Cholesterol 58 mg/dL (<100) HDL Cholesterol 34 MG/DL (40-60) L Cholesterol/HDL Ratio 2.7 (3.3-4.4) L Risk Assessment & Plan Assessment: ASA 4 Plan: GA Status Change Before Surgery: No Pre-Antibiotics Drug: Jonathon Wilkerson MD May 26, 2018 13:03
[2018-05-26] MEDS: Piperacillin/Tazobactam 2.25 GM in D5W 55 ML IV SCH ×2 (15:14→22:03)
[2018-05-26 17:18] LABS: ANION GAP 10 mmol/L (5-15); BLOOD UREA NITROGEN 41 mg/dL (7-18); CARBON DIOXIDE 31 MMOL/L (21-32); CHLORIDE 98 MMOL/L (98-107); CREATININE 6.6 MG/DL (0.55-1.30); POTASSIUM 3.3 MMOL/L (3.5-5.1); SODIUM 139 MMOL/L (136-145)
[2018-05-26] MEDS: Iron Sucrose 100 MG in NS 55 ML IV SCH (20:39)
[2018-05-26] MEDS: Dyna-Hex 2% Top Sol 2oz TOPIC SCH (20:39)
[2018-05-26] MEDS: Atorvastatin 80mg tab ORAL SCH (20:40)
[2018-05-26] MEDS: Epogen (for ESRD on dialysis) SUBQ SCH (21:01)
[2018-05-26 21:02] LABS: APPEARANCE,URINE CLEAR; BILIRUBIN, URINE NEGATIVE (NEGATIVE); COLOR,URINE PALE YELLOW; GLUCOSE, URINE (UA) 2+ (NEGATIVE); KETONES,URINE NEGATIVE (NEGATIVE); LEUKOCYTE ESTERASE ,URINE NEGATIVE (NEGATIVE); NITRITE,URINE NEGATIVE (NEGATIVE); PH,URINE 8 (4.5-8.0); PROTEIN,URINE 2+ (NEGATIVE); UROBILINOGEN,URINE NORMAL MG/DL (0.0-1.0)
[2018-05-27] VITALS: BP 133/69
--- NOTE | 2018-05-27 03:15 | Progress Note ---
DATE: 05/26/2018 CARDIOLOGY PROGRESS NOTE SUBJECTIVE: The patient remains in the step-down unit. Condition remains serious. Prognosis remains guarded. He continues to have renal failure and a PermCath was placed today. His femoral catheter was discontinued. OBJECTIVE: VITAL SIGNS: Blood pressure 147/67, pulse 82, and respiratory rate 18. GENERAL: He denies any chest pain or shortness of breath. He continues to have a very poor appetite. LUNGS: Diminished breath sounds. No wheezing. CARDIAC: Regular rhythm and rate. Normal S1 and S2 with a fourth heart sound. ABDOMEN: Soft. EXTREMITIES: Trace dependent edema. Distal pulses palpable. LABORATORY DATA: White count 8.4 and hemoglobin 7.5. Potassium 3.3, BUN 41, creatinine 6.6, troponin down to 0.647, pro-natriuretic peptide 6500. Chest x-ray today reveals left pleural effusion and mild perihilar interstitial congestion with right lung opacity. IMPRESSION: 1. Acute renal failure. 2. Acute myocardial infarction. 3. Acute on chronic diastolic congestive heart failure. 4. Heart block. 5. Bradyarrhythmia due to hyperkalemia, which has resolved. 6. Hypovolemic shock, recovered. 7. Hypertensive heart disease, now with rising blood pressure trend. PLAN: 1. Hemodialysis with ultrafiltration for volume management. 2. Titrate antihypertensives. 3. Maintain statin therapy. 4. Continue anti-platelet therapy with Plavix and titrate beta-harley. 5. Avoid ARB and ENMA inhibitor therapy at this time unless end-stage renal disease is diagnosed. Ramy Madera M.D. DR: LEONARDO JOB#: [id number] CC:
[2018-05-27 04:00] VITALS: BP 141/63
[2018-05-27 05:31] LABS: BASOPHILS % (AUTO) 0.6 % (0.0-2.0); EOSINOPHILS % (AUTO) 0.6 % (0.0-3.0); HEMATOCRIT 24.6 % (42.0-52.0); HEMOGLOBIN 8.1 G/DL (14.2-18.0); LYMPHOCYTES % (AUTO) 10.5 % (20.0-45.0); MEAN CORPUSCULAR VOLUME 81 FL (80-99); MONOCYTES % (AUTO) 13.2 % (1.0-10.0); NEUTROPHILS % (AUTO) 75.1 % (45.0-75.0); PLATELET COUNT 153 K/UL (150-450); RED BLOOD COUNT 3.05 M/UL (4.70-6.10); RED CELL DISTRIBUTION WIDTH 12.2 % (11.6-14.8); WHITE BLOOD COUNT 7.8 K/UL (4.8-10.8)
[2018-05-27] MEDS: NovoLOG Insulin Flexpen SUBQ SCH ×3 (05:52→17:35)
[2018-05-27 05:56] LABS: ALANINE AMINOTRANSFERASE 90 U/L (12-78); ALBUMIN 2.6 G/DL (3.4-5.0); ALBUMIN/GLOBULIN RATIO 0.8 (1.0-2.7); ALKALINE PHOSPHATASE 99 U/L (46-116); ANION GAP 8 mmol/L (5-15); ASPARTATE AMINO TRANSFERASE 79 U/L (15-37); BILIRUBIN,TOTAL 0.7 MG/DL (0.2-1.0); BLOOD UREA NITROGEN 47 mg/dL (7-18); CALCIUM 8.1 MG/DL (8.5-10.1); CARBON DIOXIDE 33 MMOL/L (21-32); CHLORIDE 100 MMOL/L (98-107); CREATININE 7.6 MG/DL (0.55-1.30); PHOSPHORUS 2.9 MG/DL (2.5-4.9); POTASSIUM 3.6 MMOL/L (3.5-5.1); SODIUM 141 MMOL/L (136-145)
[2018-05-27] MEDS ORDERED: Heparin Sod 1000 units/ml 10ml IV SCH (06:00)
[2018-05-27] MEDS: Piperacillin/Tazobactam 2.25 GM in D5W 55 ML IV SCH (06:00)
[2018-05-27] MEDS: Albuterol ud Inhalation HHN SCH ×3 (07:27→18:58)
[2018-05-27 08:00] VITALS: BP 147/76
--- NOTE | 2018-05-27 08:13 | Pulmonology Progress Note ---
Assessment/Plan Assessment/Plan 1. Diabetes with hypoglycemia. 2. Severe metabolic acidosis; likely due to metformin 3. Acute on chronic renal failure with uremia and hyperkalemia. 4. Arrhythmia likely due to hyperkalemia. 5. Peripheral artery disease. 6. Coronary artery stent placement. 7. Hypertension. 8. Hyperlipidemia. 9. Anemia. 10. Cholelithiasis. 11. Umbilical hernia. 12. AMI FU echo duplex negative for DVT FU with cards recommendations continue tele and KARIN no chest pain no resp distress advance diet no need for transfusion, rx EPO Subjective Constitutional: Reports: no symptoms HEENT: Repors: no symptoms Respiratory: Reports: dry cough Cardiovascular: Reports: no symptoms Gastrointestinal/Abdominal: Reports: diarrhea Genitourinary: Reports: no symptoms Neurologic: Reports: no symptoms Psychiatric: Reports: no symptoms Skin: Reports: no symptoms Allergies: Coded Allergies: No Known Allergies (Unverified , 05/23/18) Subjective sp hd this am no cp nv positive diarrhea no appetite minmall oob with pt on RA Objective Last 24 Hour Vital Signs Date Time Temp Pulse Resp B/P (MAP) Pulse Ox O2 Delivery O2 Flow Rate FiO2 05/27/18 07:28 Nasal Cannula 2.0 28 05/27/18 07:27 98 Nasal Cannula 2.0 28 05/27/18 04:00 68 05/27/18 04:00 98.2 74 20 141/63 (89) 97 05/27/18 04:00 Nasal Cannula 1.0 05/27/18 00:00 Nasal Cannula 1.0 05/27/18 00:00 80 05/27/18 00:00 98.2 78 20 133/69 (90) 97 05/26/18 20:40 86 146/73 05/26/18 20:38 Nasal Cannula 2.0 28 05/26/18 20:37 98 Nasal Cannula 2.0 28 05/26/18 20:37 80 18 97 Nasal Cannula 2.0 28 05/26/18 20:10 78 18 90 Room Air 21 05/26/18 20:00 86 05/26/18 20:00 Nasal Cannula 1.0 05/26/18 20:00 98.4 86 20 146/73 (97) 94 05/26/18 16:00 Room Air 05/26/18 16:00 98.1 85 19 132/74 (93) 94 05/26/18 15:25 88 05/26/18 13:12 72 18 99 Nasal Cannula 2.0 28 05/26/18 12:40 71 18 97 Room Air 21 05/26/18 12:01 74 05/26/18 12:00 Nasal Cannula 2.0 05/26/18 12:00 97.9 81 19 139/74 (95) 98 05/26/18 09:51 85 147/67 05/26/18 09:51 85 147/67 05/26/18 09:05 85 18 99 Nasal Cannula 2.0 28 05/26/18 08:21 99 Nasal Cannula 2.0 28 05/26/18 08:21 Nasal Cannula 2.0 28 05/26/18 08:21 79 18 99 Nasal Cannula 2.0 28 Intake and Output 05/26/18 05/27/18 19:00 07:00 Intake Total 55 ml Output Total 400 ml Balance 55 ml -400 ml IV Total 55 ml Output Urine Total 400 ml # Voids 1 # Bowel Movements 1 General Appearance: WD/WN Respiratory/Chest: normal breath sounds, rhonchi Abdomen: soft, non tender, no organomegaly Extremities: no clubbing Skin: no rash 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, abnormal gait, alert, oriented x 3 Laboratory Tests 05/26/18 10:10: Sodium Level 139, Potassium Level 3.3L, Chloride Level 98, Carbon Dioxide Level 31, Anion Gap 10, Blood Urea Nitrogen 41H, Creatinine 6.6H, Estimat Glomerular Filtration Rate 10.2, Glucose Level 158#H, Calcium Level 8.0L, Troponin I 0.647H 05/26/18 10:45: Urine Color Pale yellow, Urine Appearance Clear, Urine pH 8, Urine Specific [place] 1.010, Urine Protein 2+H, Urine Glucose (UA) 2+H, Urine Ketones Negative , Urine Blood 4+H, Urine Nitrite Negative, Urine Bilirubin Negative, Urine Urobilinogen Normal, Urine Leukocyte Esterase Negative, Urine RBC 0-2H, Urine WBC 0-2, Urine Squamous Epithelial Cells None, Urine Bacteria Occasional, Stool Occult Blood [Pending] 05/27/18 03:36: Sodium Level 141, Potassium Level 3.6, Chloride Level 100, Carbon Dioxide Level 33H, Anion Gap 8, Blood Urea Nitrogen 47H, Creatinine 7.6H, Estimat Glomerular Filtration Rate 8.6, Glucose Level 140H, Calcium Level 8.1L, White Blood Count 7.8, Red Blood Count 3.05L, Hemoglobin 8.1L, Hematocrit 24.6L, Mean Corpuscular Volume 81, Mean Corpuscular Hemoglobin 26.5L, Mean Corpuscular Hemoglobin Concent 32.9, Red Cell Distribution Width 12.2, Platelet Count 153, Mean Platelet Volume 8.1, Neutrophils (%) (Auto) 75.1H, Lymphocytes (%) (Auto) 10.5L , Monocytes (%) (Auto) 13.2H, Eosinophils (%) (Auto) 0.6, Basophils (%) (Auto) 0.6, Prothrombin Time 10.3, Prothromb Time International Ratio 1.0, Activated Partial Thromboplast Time 26, Phosphorus Level 2.9, Total Bilirubin 0.7, Aspartate Amino Transf (AST/SGOT) 79H, Alanine Aminotransferase (ALT/SGPT) 90H, Alkaline Phosphatase 99, Total Protein 6.0L, Albumin 2.6L, Globulin 3.4, Albumin /Globulin Ratio 0.8L Current Medications Medications (Trade) Dose Ordered Sig/Isabelle Route PRN Reason Start Time Stop Time Status Last Admin Dose Admin Albuterol Sulfate (Proventil) 10 mg TIDRT HHN 05/26/18 07:00 05/28/18 18:59 05/27/18 07:27 Amlodipine Besylate (Norvasc) 5 mg DAILY ORAL 05/26/18 09:00 06/24/18 08:59 05/26/18 09:51 Atorvastatin Calcium (Lipitor) 80 mg BEDTIME ORAL 05/26/18 21:00 06/23/18 20:59 05/26/18 20:40 Carvedilol (Coreg) 12.5 mg EVERY 12 HOURS ORAL 05/27/18 09:00 06/26/18 08:59 Chlorhexidine Gluconate (Ashanti-Hex 2%) 1 applic DAILY@1999 TOPIC 05/26/18 20:00 06/22/18 19:59 05/26/18 20:39 Clopidogrel Bisulfate (Plavix) 75 mg DAILY ORAL 05/26/18 09:00 06/24/18 08:59 05/26/18 09:51 Dextrose (Dextrose 50%) 25 ml Q30M PRN IV Hypoglycemia 05/26/18 06:45 1/3/19 14:44 Dextrose (Dextrose 50%) 50 ml Q30M PRN IV Hypoglycemia 05/26/18 06:45 06/22/18 14:44 Epoetin Chinedu (Procrit (for ESRD on dialysis)) 7,000 units MON-WED-TUE SUBQ 05/26/18 21:00 06/25/18 20:59 05/26/18 21:01 Heparin Sodium (Porcine) (Heparin Sod 1000 units/ml 10ml) 2,000 unit ONCE IV 05/27/18 06:00 05/27/18 18:00 05/27/18 07:46 Insulin Aspart (NovoLOG) Q6HR SUBQ 05/26/18 12:00 06/22/18 17:59 05/27/18 05:52 Iron Sucrose 100 mg/Sodium Chloride 60 ml @ 240 mls/hr BEDTIME IV 05/26/18 21:00 05/30/18 21:14 05/26/18 20:39 Magnesium Oxide (Mag-Ox 400mg) 400 mg THREE TIMES A DAY ORAL 05/26/18 09:00 06/25/18 08:59 05/26/18 17:40 Pantoprazole (Protonix) 40 mg DAILY ORAL 05/27/18 09:00 06/26/18 08:59 Piperacillin Sod/ Tazobactam Sod 2.25 gm/Dextrose 55 ml @ 110 mls/hr Q8HR IV 05/26/18 14:00 05/28/18 21:59 05/26/18 22:03 Sodium Chloride 1,000 ml @ 500 mls/hr Q2H PRN IVLG sbp<90 during hd 05/27/18 06:00 05/27/18 18:00 Vancomycin HCl (Vanco rx to dose) 1 ea DAILY PRN MISC Per rx protocol 05/26/18 09:00 06/22/18 17:59 Vancomycin HCl 500 mg/Sodium Chloride 110 ml @ 110 mls/hr ONCE ONCE IVPB 05/27/18 11:00 05/27/18 11:59 Renetta Finnegan DO May 27, 2018 08:13
[2018-05-27] MEDS: Magnesium Oxide 400mg tab ORAL SCH ×3 (08:35→17:34)
[2018-05-27] MEDS: Carvedilol 6.25mg Tab ORAL SCH ×2 (08:36→21:17)
--- NOTE | 2018-05-27 10:08 | Nephrology Progress Note ---
Assessment/Plan Problem List: (1) Acute coronary syndromes (2) Rhabdomyolysis (3) Hyperkalemia (4) Hypovolemic shock (5) Lactic acidosis (6) Acute renal failure (7) Hypoglycemia (8) Diabetes Plan better after dialysis, possible lactic acidosis from m metformin, anuric, now more urine serial HD, epo empiric atb pending culture neg will stop dc [facility] HD cath post HD, mobilize Subjective Constitutional: Reports: weakness HEENT: Reports: no symptoms Genitourinary: Reports: no symptoms Neurologic/Psychiatric: Reports: no symptoms Objective Objective Last 24 Hour Vital Signs Date Time Temp Pulse Resp B/P (MAP) Pulse Ox O2 Delivery O2 Flow Rate FiO2 05/27/18 08:36 84 147/76 05/27/18 08:35 84 147/76 05/27/18 08:18 84 20 98 Room Air 21 05/27/18 08:00 97.9 81 20 147/76 (99) 98 05/27/18 08:00 Room Air 05/27/18 07:57 77 05/27/18 07:28 79 18 99 Nasal Cannula 2.0 28 05/27/18 07:28 Nasal Cannula 2.0 28 05/27/18 07:27 98 Nasal Cannula 2.0 28 05/27/18 04:00 68 05/27/18 04:00 98.2 74 20 141/63 (89) 97 05/27/18 04:00 Nasal Cannula 1.0 05/27/18 00:00 Nasal Cannula 1.0 05/27/18 00:00 80 05/27/18 00:00 98.2 78 20 133/69 (90) 97 05/26/18 20:40 86 146/73 05/26/18 20:38 Nasal Cannula 2.0 28 05/26/18 20:37 98 Nasal Cannula 2.0 28 05/26/18 20:37 80 18 97 Nasal Cannula 2.0 28 05/26/18 20:10 78 18 90 Room Air 21 05/26/18 20:00 86 05/26/18 20:00 Nasal Cannula 1.0 05/26/18 20:00 98.4 86 20 146/73 (97) 94 05/26/18 16:00 Room Air 05/26/18 16:00 98.1 85 19 132/74 (93) 94 05/26/18 15:25 88 05/26/18 13:12 72 18 99 Nasal Cannula 2.0 28 05/26/18 12:40 71 18 97 Room Air 21 05/26/18 12:01 74 05/26/18 12:00 Nasal Cannula 2.0 05/26/18 12:00 97.9 81 19 139/74 (95) 98 Intake and Output 05/26/18 05/27/18 18:59 06:59 Intake Total 55 ml Output Total 400 ml Balance 55 ml -400 ml IV Total 55 ml Output Urine Total 400 ml # Voids 1 # Bowel Movements 1 Laboratory Tests 05/26/18 10:10: Sodium Level 139, Potassium Level 3.3L, Chloride Level 98, Carbon Dioxide Level 31, Anion Gap 10, Blood Urea Nitrogen 41H, Creatinine 6.6H, Estimat Glomerular Filtration Rate 10.2, Glucose Level 158#H, Calcium Level 8.0L, Troponin I 0.647H 05/26/18 10:45: Urine Color Pale yellow, Urine Appearance Clear, Urine pH 8, Urine Specific [place] 1.010, Urine Protein 2+H, Urine Glucose (UA) 2+H, Urine Ketones Negative , Urine Blood 4+H, Urine Nitrite Negative, Urine Bilirubin Negative, Urine Urobilinogen Normal, Urine Leukocyte Esterase Negative, Urine RBC 0-2H, Urine WBC 0-2, Urine Squamous Epithelial Cells None, Urine Bacteria Occasional, Stool Occult Blood [Pending] 05/27/18 00:36: Troponin I 0.396H 05/27/18 03:36: Sodium Level 141, Potassium Level 3.6, Chloride Level 100, Carbon Dioxide Level 33H, Anion Gap 8, Blood Urea Nitrogen 47H, Creatinine 7.6H, Estimat Glomerular Filtration Rate 8.6, Glucose Level 140H, Calcium Level 8.1L, White Blood Count 7.8, Red Blood Count 3.05L, Hemoglobin 8.1L, Hematocrit 24.6L, Mean Corpuscular Volume 81, Mean Corpuscular Hemoglobin 26.5L, Mean Corpuscular Hemoglobin Concent 32.9, Red Cell Distribution Width 12.2, Platelet Count 153, Mean Platelet Volume 8.1, Neutrophils (%) (Auto) 75.1H, Lymphocytes (%) (Auto) 10.5L , Monocytes (%) (Auto) 13.2H, Eosinophils (%) (Auto) 0.6, Basophils (%) (Auto) 0.6, Prothrombin Time 10.3, Prothromb Time International Ratio 1.0, Activated Partial Thromboplast Time 26, Phosphorus Level 2.9, Magnesium Level [Pending], Total Bilirubin 0.7, Aspartate Amino Transf (AST/SGOT) 79H, Alanine Aminotransferase (ALT/SGPT) 90H, Alkaline Phosphatase 99, Total Protein 6.0L, Albumin 2.6L, Globulin 3.4, Albumin/Globulin Ratio 0.8L Height (Feet): 5 Height (Inches): 1.00 Weight (Pounds): 137 General Appearance: no apparent distress, alert EENT: normal ENT inspection Neck: normal alignment, supple Cardiovascular: regular rhythm Respiratory/Chest: lungs clear Abdomen: non tender, soft Extremities: trace edema 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
[2018-05-27] MEDS ORDERED: Vancomycin 500 MG in NS 110 ML IVPB ONE (11:00)
[2018-05-27 12:00] VITALS: BP 143/61
--- NOTE | 2018-05-27 13:23 | General Surgery Progress Note ---
General Surgery-Progress Note Subjective Procedure Performed left femoral temporary HD catheter insertion Additional Comments doing well. left fem HD cath removed today with anticipation of perm a cath tuesday Objective Last 24 Hour Vital Signs Date Time Temp Pulse Resp B/P (MAP) Pulse Ox O2 Delivery O2 Flow Rate FiO2 05/27/18 12:00 Room Air 05/27/18 12:00 97.9 74 20 143/61 (88) 100 05/27/18 11:55 72 05/27/18 08:36 84 147/76 05/27/18 08:35 84 147/76 05/27/18 08:18 84 20 98 Room Air 21 05/27/18 08:00 97.9 81 20 147/76 (99) 98 05/27/18 08:00 Room Air 05/27/18 07:57 77 05/27/18 07:28 79 18 99 Nasal Cannula 2.0 28 05/27/18 07:28 Nasal Cannula 2.0 28 05/27/18 07:27 98 Nasal Cannula 2.0 28 05/27/18 04:00 68 05/27/18 04:00 98.2 74 20 141/63 (89) 97 05/27/18 04:00 Nasal Cannula 1.0 05/27/18 00:00 Nasal Cannula 1.0 05/27/18 00:00 80 05/27/18 00:00 98.2 78 20 133/69 (90) 97 05/26/18 20:40 86 146/73 05/26/18 20:38 Nasal Cannula 2.0 28 05/26/18 20:37 98 Nasal Cannula 2.0 28 05/26/18 20:37 80 18 97 Nasal Cannula 2.0 28 05/26/18 20:10 78 18 90 Room Air 21 05/26/18 20:00 86 05/26/18 20:00 Nasal Cannula 1.0 05/26/18 20:00 98.4 86 20 146/73 (97) 94 05/26/18 16:00 Room Air 05/26/18 16:00 98.1 85 19 132/74 (93) 94 05/26/18 15:25 88 I&O Intake and Output 05/26/18 05/27/18 18:59 06:59 Intake Total 55 ml Output Total 400 ml Balance 55 ml -400 ml IV Total 55 ml Output Urine Total 400 ml # Voids 1 # Bowel Movements 1 Dressing: dry Wound: clean Drains: none Cardiovascular: RSR Respiratory: clear Abdomen: soft, flat, non-tender, present bowel sounds Extremities: no tenderness, no cyanosis Laboratory Tests Test 05/27/18 00:36 05/27/18 03:36 Troponin I 0.396 ng/mL (0.000-0.056) White Blood Count 7.8 K/UL (4.8-10.8) Red Blood Count 3.05 M/UL (4.70-6.10) L Hemoglobin 8.1 G/DL (14.2-18.0) L Hematocrit 24.6 % (42.0-52.0) L Mean Corpuscular Volume 81 FL (80-99) Mean Corpuscular Hemoglobin 26.5 PG (27.0-31.0) L Mean Corpuscular Hemoglobin Concent 32.9 G/DL (32.0-36.0) Red Cell Distribution Width 12.2 % (11.6-14.8) Platelet Count 153 K/UL (150-450) Mean Platelet Volume 8.1 FL (6.5-10.1) Neutrophils (%) (Auto) 75.1 % (45.0-75.0) H Lymphocytes (%) (Auto) 10.5 % (20.0-45.0) L Monocytes (%) (Auto) 13.2 % (1.0-10.0) H Eosinophils (%) (Auto) 0.6 % (0.0-3.0) Basophils (%) (Auto) 0.6 % (0.0-2.0) Prothrombin Time 10.3 SEC (9.30-11.50) Prothromb Time International Ratio 1.0 (0.9-1.1) Activated Partial Thromboplast Time 26 SEC (23-33) Sodium Level 141 MMOL/L (136-145) Potassium Level 3.6 MMOL/L (3.5-5.1) Chloride Level 100 MMOL/L (98-107) Carbon Dioxide Level 33 MMOL/L (21-32) H Anion Gap 8 mmol/L (5-15) Blood Urea Nitrogen 47 mg/dL (7-18) H Creatinine 7.6 MG/DL (0.55-1.30) H Estimat Glomerular Filtration Rate 8.6 mL/min (>60) Glucose Level 140 MG/DL (74-106) H Calcium Level 8.1 MG/DL (8.5-10.1) L Phosphorus Level 2.9 MG/DL (2.5-4.9) Magnesium Level 1.9 MG/DL (1.5-2.4) Total Bilirubin 0.7 MG/DL (0.2-1.0) Aspartate Amino Transf (AST/SGOT) 79 U/L (15-37) H Alanine Aminotransferase (ALT/SGPT) 90 U/L (12-78) H Alkaline Phosphatase 99 U/L (46-116) Total Protein 6.0 G/DL (6.4-8.2) L Albumin 2.6 G/DL (3.4-5.0) L Globulin 3.4 g/dL Albumin/Globulin Ratio 0.8 (1.0-2.7) L Plan Additional Comments left femoral line removed plan for permacath tuesday chaitanya pérez mn tuesday Derek Lacey May 27, 2018 13:23
[2018-05-27 15:33] VITALS: BP 140/60
[2018-05-27] MEDS ORDERED: Tubing IV Secondary IV ONE (16:46)
[2018-05-27 20:00] VITALS: BP 133/57
[2018-05-27] MEDS: Dyna-Hex 2% Top Sol 2oz TOPIC SCH (20:00)
[2018-05-27] MEDS: Iron Sucrose 100 MG in NS 55 ML IV SCH (21:16)
[2018-05-27] MEDS: Atorvastatin 80mg tab ORAL SCH (21:17)
[2018-05-28] VITALS: BP 122/56
[2018-05-28] MEDS ORDERED: Albuterol ud Inhalation HHN SCH (01:15)
--- NOTE | 2018-05-28 02:15 | Progress Note ---
DATE: 05/27/2018 CARDIOLOGY PROGRESS NOTE SUBJECTIVE: The patient is less short of breath. He has been out of bed with therapist. Minimally active in the room only. He is off oxygen saturations with adequate saturations. Venous duplex scan, negative for DVT. No chest pain. OBJECTIVE: VITAL SIGNS: Blood pressure 141/63, pulse 74, respirations 20. Monitored rhythm, sinus. LUNGS: Coarse breath sounds. No wheezing. HEART: Regular rhythm and rate. Normal S1, S2 with a fourth heart sound. ABDOMEN: Soft. Trace dependent edema. LABORATORY DATA: White count 7.8, hemoglobin 8.1, BUN 47, creatinine 7.6, potassium 3.6, and magnesium 1.9. Troponin 0.396. IMPRESSION: 1. Acute myocardial infarction. 2. Hypovolemic shock. 3. Acute renal failure. 4. Hyperkalemia with conduction system abnormalities and secondary bradyarrhythmias, now resolved. 5. Acute on chronic diastolic congestive heart failure. 6. Hypertensive heart disease with adequate blood pressure control at this time. PLAN: 1. Off ENMA inhibitor and ARB therapy. 2. Titrate beta-harley. 3. Continue anti-platelet therapy. 4. Hemodialysis with ultrafiltration. 5. Statin drug. 6. DVT prophylaxis. 7. Mobilize as able. 8. Avoid tighter blood pressure control. Ramy Madera M.D. DR: BONG JOB#: [id number] CC:
[2018-05-28 04:00] VITALS: BP 134/73
[2018-05-28 04:22] LABS: ANION GAP 7 mmol/L (5-15); BLOOD UREA NITROGEN 38 mg/dL (7-18); CALCIUM 7.7 MG/DL (8.5-10.1); CARBON DIOXIDE 35 MMOL/L (21-32); CHLORIDE 101 MMOL/L (98-107); CREATININE 7.4 MG/DL (0.55-1.30); POTASSIUM 3.5 MMOL/L (3.5-5.1); SODIUM 142 MMOL/L (136-145)
[2018-05-28 04:28] LABS: HEMATOCRIT 21.4 % (42.0-52.0); HEMOGLOBIN 7.2 G/DL (14.2-18.0); MEAN CORPUSCULAR VOLUME 80 FL (80-99); PLATELET COUNT 141 K/UL (150-450); RED BLOOD COUNT 2.67 M/UL (4.70-6.10); RED CELL DISTRIBUTION WIDTH 12.4 % (11.6-14.8); WHITE BLOOD COUNT 6.3 K/UL (4.8-10.8)
[2018-05-28] MEDS: NovoLOG Insulin Flexpen SUBQ SCH ×5 (06:00→23:52)
[2018-05-28 08:00] VITALS: BP 144/72
[2018-05-28] MEDS ORDERED: Tubing IV Secondary IV ONE (08:39)
[2018-05-28] MEDS ORDERED: NS 275ml ONE (08:39)
[2018-05-28] MEDS: Magnesium Oxide 400mg tab ORAL SCH ×3 (08:55→17:11)
[2018-05-28] MEDS: Carvedilol 6.25mg Tab ORAL SCH ×2 (08:55→21:44)
--- NOTE | 2018-05-28 10:08 | Pulmonology Progress Note ---
Assessment/Plan Assessment/Plan 1. Diabetes with hypoglycemia. 2. Severe metabolic acidosis; likely due to metformin 3. Acute on chronic renal failure with uremia and hyperkalemia. 4. Arrhythmia likely due to hyperkalemia. 5. Peripheral artery disease. 6. Coronary artery stent placement. 7. Hypertension. 8. Hyperlipidemia. 9. Anemia. 10. Cholelithiasis. 11. Umbilical hernia. 12. AMI transfuse 1 unit PRBC this am as hbg at 7 FU with cards recommendations continue tele and KARIN advance diet and encourage compliance Subjective Constitutional: Reports: no symptoms HEENT: Repors: no symptoms Respiratory: Reports: no symptoms Cardiovascular: Reports: no symptoms Gastrointestinal/Abdominal: Reports: no symptoms Genitourinary: Reports: no symptoms Allergies: Coded Allergies: No Known Allergies (Unverified , 05/23/18) Subjective doing well oob with pt no fever no cp nv positive diarrhea minimal po no arrhythmia on RA no bleeding but HBG declining Objective Last 24 Hour Vital Signs Date Time Temp Pulse Resp B/P (MAP) Pulse Ox O2 Delivery O2 Flow Rate FiO2 05/28/18 08:55 70 144/72 05/28/18 08:55 70 144/72 05/28/18 08:00 97.7 70 18 144/72 (96) 98 05/28/18 08:00 Room Air 05/28/18 07:28 96 Room Air 05/28/18 07:28 Room Air 05/28/18 04:00 64 05/28/18 04:00 96.3 66 18 134/73 (93) 100 05/28/18 04:00 Room Air 05/28/18 00:43 68 05/28/18 00:00 Room Air 05/28/18 00:00 98.8 68 18 122/56 (78) 98 05/27/18 21:17 81 133/57 05/27/18 20:00 Room Air 05/27/18 20:00 99.3 81 20 133/57 (82) 96 05/27/18 20:00 86 05/27/18 19:34 97 Room Air 21 05/27/18 19:31 83 18 97 Room Air 21 05/27/18 19:00 Nasal Cannula 2.0 28 05/27/18 18:59 82 16 99 Room Air 21 05/27/18 16:00 Room Air 05/27/18 15:41 69 05/27/18 15:33 87 20 100 Room Air 21 05/27/18 15:33 96.8 73 20 140/60 (86) 100 05/27/18 15:02 85 18 99 Room Air 21 05/27/18 12:00 Room Air 05/27/18 12:00 97.9 74 20 143/61 (88) 100 05/27/18 11:55 72 Intake and Output 05/27/18 05/28/18 19:00 07:00 Intake Total 100 ml 160 ml Output Total 2800 ml 550 ml Balance -2700 ml -390 ml Intake Oral 100 ml 100 ml IV Total 60 ml Output Urine Total 600 ml 550 ml Hemodialysis UF 2200 ml # Bowel Movements 2 General Appearance: WD/WN Respiratory/Chest: lungs clear, normal breath sounds Cardiovascular: normal rate, regular rhythm Abdomen: soft, non tender Neurologic/Psychiatric: alert, oriented x 3, responsive Microbiology Date/Time Source Procedure Growth Status 05/27/18 01:40 Other(Specify in comment) Catheter Tip Culture - Preliminary NO GROWTH Resulted 05/26/18 10:45 Indwelling Cath Urine Culture - Final NO GROWTH AFTER 48 HOURS Complete Laboratory Tests 05/28/18 04:00: White Blood Count 6.3, Red Blood Count 2.67L, Hemoglobin 7.2L, Hematocrit 21.4L , Mean Corpuscular Volume 80, Mean Corpuscular Hemoglobin 27.0, Mean Corpuscular Hemoglobin Concent 33.7, Red Cell Distribution Width 12.4, Platelet Count 141L, Mean Platelet Volume 7.6, Neutrophils (%) (Auto) , Lymphocytes (%) ( Auto) , Monocytes (%) (Auto) , Eosinophils (%) (Auto) , Basophils (%) (Auto) , Differential Total Cells Counted 100, Neutrophils % (Manual) 64, Lymphocytes % ( Manual) 28, Monocytes % (Manual) 7, Eosinophils % (Manual) 1, Basophils % ( Manual) 0, Band Neutrophils 0, Platelet Estimate DecreasedL, Platelet Morphology Normal, Hypochromasia 1+, Schistocytes 1+, Sodium Level 142, Potassium Level 3.5, Chloride Level 101, Carbon Dioxide Level 35H, Anion Gap 7, Blood Urea Nitrogen 38H, Creatinine 7.4H, Estimat Glomerular Filtration Rate 8.8 , Glucose Level 69L, Calcium Level 7.7L Current Medications Medications (Trade) Dose Ordered Sig/Isabelle Route PRN Reason Start Time Stop Time Status Last Admin Dose Admin Albuterol Sulfate (Proventil) 2.5 mg PRN HHN 05/28/18 01:15 06/02/18 01:14 Amlodipine Besylate (Norvasc) 5 mg DAILY ORAL 05/26/18 09:00 06/24/18 08:59 05/28/18 08:55 Atorvastatin Calcium (Lipitor) 80 mg BEDTIME ORAL 05/26/18 21:00 06/23/18 20:59 05/27/18 21:17 Carvedilol (Coreg) 12.5 mg EVERY 12 HOURS ORAL 05/27/18 09:00 06/26/18 08:59 05/28/18 08:55 Chlorhexidine Gluconate (Ashanti-Hex 2%) 1 applic DAILY@2000 TOPIC 05/26/18 20:00 06/22/18 19:59 05/26/18 20:39 Clopidogrel Bisulfate (Plavix) 75 mg DAILY ORAL 05/26/18 09:00 06/24/18 08:59 05/28/18 08:55 Dextrose (Dextrose 50%) 25 ml Q30M PRN IV Hypoglycemia 05/26/18 06:45 06/22/18 14:44 Dextrose (Dextrose 50%) 50 ml Q30M PRN IV Hypoglycemia 05/26/18 06:45 06/22/18 14:44 Epoetin Chinedu (Procrit (for ESRD on dialysis)) 7,000 units TUE-TUE-TUE SUBQ 05/26/18 21:00 06/25/18 20:59 05/26/18 21:01 Insulin Aspart (NovoLOG) Q6HR SUBQ 05/26/18 12:00 06/22/18 17:59 05/27/18 17:35 Iron Sucrose 100 mg/Sodium Chloride 60 ml @ 240 mls/hr BEDTIME IV 05/26/18 21:00 05/30/18 21:14 05/27/18 21:16 Magnesium Oxide (Mag-Ox 400mg) 400 mg THREE TIMES A DAY ORAL 05/26/18 09:00 06/25/18 08:59 05/28/18 08:55 Pantoprazole (Protonix) 40 mg DAILY ORAL 05/27/18 09:00 06/26/18 08:59 05/28/18 08:54 Renetta Finnegan DO May 28, 2018 10:08
--- NOTE | 2018-05-28 10:09 | Nephrology Progress Note ---
Assessment/Plan Problem List: (1) Acute coronary syndromes (2) Rhabdomyolysis (3) Hyperkalemia (4) Hypovolemic shock (5) Lactic acidosis (6) Acute renal failure (7) Hypoglycemia (8) Diabetes Plan better after dialysis, possible lactic acidosis from m metformin, anuric, now more urine serial HD, epo empiric atb pending culture neg will stop dc [facility] HD cath post HD, mobilize , pERMCATH IF NO IMPROVE RENAL FUNCTION Subjective Constitutional: Reports: weakness HEENT: Reports: no symptoms Genitourinary: Reports: no symptoms Neurologic/Psychiatric: Reports: no symptoms Objective Objective Last 24 Hour Vital Signs Date Time Temp Pulse Resp B/P (MAP) Pulse Ox O2 Delivery O2 Flow Rate FiO2 05/28/18 08:55 70 144/72 05/28/18 08:55 70 144/72 05/28/18 08:00 97.7 70 18 144/72 (96) 98 05/28/18 08:00 Room Air 05/28/18 07:28 96 Room Air 05/28/18 07:28 Room Air 21 05/28/18 04:00 64 05/28/18 04:00 96.3 66 18 134/73 (93) 100 05/28/18 04:00 Room Air 05/28/18 00:43 68 05/28/18 00:00 Room Air 05/28/18 00:00 98.8 68 18 122/56 (78) 98 05/27/18 21:17 81 133/57 05/27/18 20:00 Room Air 05/27/18 20:00 99.3 81 20 133/57 (82) 96 05/27/18 20:00 86 05/27/18 19:34 97 Room Air 21 05/27/18 19:31 83 18 97 Room Air 21 05/27/18 19:00 Nasal Cannula 2.0 28 05/27/18 18:59 82 16 99 Room Air 21 05/27/18 16:00 Room Air 05/27/18 15:41 69 05/27/18 15:33 87 20 100 Room Air 21 05/27/18 15:33 96.8 73 20 140/60 (86) 100 05/27/18 15:02 85 18 99 Room Air 21 05/27/18 12:00 Room Air 05/27/18 12:00 97.9 74 20 143/61 (88) 100 05/27/18 11:55 72 Intake and Output 05/27/18 05/28/18 19:00 07:00 Intake Total 100 ml 160 ml Output Total 2800 ml 550 ml Balance -2700 ml -390 ml Intake Oral 100 ml 100 ml IV Total 60 ml Output Urine Total 600 ml 550 ml Hemodialysis UF 2200 ml # Bowel Movements 2 Laboratory Tests 05/28/18 04:00: White Blood Count 6.3, Red Blood Count 2.67L, Hemoglobin 7.2L, Hematocrit 21.4L , Mean Corpuscular Volume 80, Mean Corpuscular Hemoglobin 27.0, Mean Corpuscular Hemoglobin Concent 33.7, Red Cell Distribution Width 12.4, Platelet Count 141L, Mean Platelet Volume 7.6, Neutrophils (%) (Auto) , Lymphocytes (%) ( Auto) , Monocytes (%) (Auto) , Eosinophils (%) (Auto) , Basophils (%) (Auto) , Differential Total Cells Counted 100, Neutrophils % (Manual) 64, Lymphocytes % ( Manual) 28, Monocytes % (Manual) 7, Eosinophils % (Manual) 1, Basophils % ( Manual) 0, Band Neutrophils 0, Platelet Estimate DecreasedL, Platelet Morphology Normal, Hypochromasia 1+, Schistocytes 1+, Sodium Level 142, Potassium Level 3.5, Chloride Level 101, Carbon Dioxide Level 35H, Anion Gap 7, Blood Urea Nitrogen 38H, Creatinine 7.4H, Estimat Glomerular Filtration Rate 8.8 , Glucose Level 69L, Calcium Level 7.7L Height (Feet): 5 Height (Inches): 1.00 Weight (Pounds): 138 General Appearance: no apparent distress, alert EENT: normal ENT inspection Neck: normal alignment, supple Cardiovascular: normal rate, regular rhythm Respiratory/Chest: lungs clear Abdomen: non tender, soft Extremities: trace edema Neurologic: buttermaker continuous churn II-XII grossly normal Suraj Workman MD May 28, 2018 10:09
[2018-05-28 11:03] LABS: APPEARANCE,URINE CLEAR; BILIRUBIN, URINE NEGATIVE (NEGATIVE); COLOR,URINE PALE YELLOW; GLUCOSE, URINE (UA) 1+ (NEGATIVE); KETONES,URINE NEGATIVE (NEGATIVE); LEUKOCYTE ESTERASE ,URINE NEGATIVE (NEGATIVE); NITRITE,URINE NEGATIVE (NEGATIVE); PH,URINE 9 (4.5-8.0); PROTEIN,URINE 2+ (NEGATIVE); UROBILINOGEN,URINE NORMAL MG/DL (0.0-1.0)
[2018-05-28 12:00] VITALS: BP 135/57
--- NOTE | 2018-05-28 14:50 | General Surgery Progress Note ---
General Surgery-Progress Note Subjective Procedure Performed left femoral temporary HD catheter insertion Additional Comments doing well. comfortable. tolerating diet. transfusion today. left groin site clean Objective Last 24 Hour Vital Signs Date Time Temp Pulse Resp B/P (MAP) Pulse Ox O2 Delivery O2 Flow Rate FiO2 05/28/18 12:00 98.4 63 18 135/57 (83) 97 05/28/18 12:00 Room Air 05/28/18 11:53 64 05/28/18 08:55 70 144/72 05/28/18 08:55 70 144/72 05/28/18 08:00 60 05/28/18 08:00 97.7 70 18 144/72 (96) 98 05/28/18 08:00 Room Air 05/28/18 07:28 96 Room Air 21 05/28/18 07:28 Room Air 21 05/28/18 04:00 64 05/28/18 04:00 96.3 66 18 134/73 (93) 100 05/28/18 04:00 Room Air 05/28/18 00:43 68 05/28/18 00:00 Room Air 05/28/18 00:00 98.8 68 18 122/56 (78) 98 05/27/18 21:17 81 133/57 05/27/18 20:00 Room Air 05/27/18 20:00 99.3 81 20 133/57 (82) 96 05/27/18 20:00 86 05/27/18 19:34 97 Room Air 21 05/27/18 19:31 83 18 97 Room Air 21 05/27/18 19:00 Nasal Cannula 2.0 28 05/27/18 18:59 82 16 99 Room Air 21 05/27/18 16:00 Room Air 05/27/18 15:41 69 05/27/18 15:33 87 20 100 Room Air 21 05/27/18 15:33 96.8 73 20 140/60 (86) 100 05/27/18 15:02 85 18 99 Room Air 21 I&O Intake and Output 05/27/18 05/28/18 18:59 06:59 Intake Total 100 ml 160 ml Output Total 2800 ml 550 ml Balance -2700 ml -390 ml Intake Oral 100 ml 100 ml IV Total 60 ml Output Urine Total 600 ml 550 ml Hemodialysis UF 2200 ml # Bowel Movements 2 Dressing: dry Wound: clean Drains: other Cardiovascular: RSR Abdomen: soft, flat, non-tender, present bowel sounds Extremities: no edema, no tenderness, no cyanosis Laboratory Tests Test 05/28/18 04:00 05/28/18 10:45 White Blood Count 6.3 K/UL (4.8-10.8) Red Blood Count 2.67 M/UL (4.70-6.10) L Hemoglobin 7.2 G/DL (14.2-18.0) L Hematocrit 21.4 % (42.0-52.0) L Mean Corpuscular Volume 80 FL (80-99) Mean Corpuscular Hemoglobin 27.0 PG (27.0-31.0) Mean Corpuscular Hemoglobin Concent 33.7 G/DL (32.0-36.0) Red Cell Distribution Width 12.4 % (11.6-14.8) Platelet Count 141 K/UL (150-450) L Mean Platelet Volume 7.6 FL (6.5-10.1) Neutrophils (%) (Auto) % (45.0-75.0) Lymphocytes (%) (Auto) % (20.0-45.0) Monocytes (%) (Auto) % (1.0-10.0) Eosinophils (%) (Auto) % (0.0-3.0) Basophils (%) (Auto) % (0.0-2.0) Differential Total Cells Counted 100 Neutrophils % (Manual) 64 % (45-75) Lymphocytes % (Manual) 28 % (20-45) Monocytes % (Manual) 7 % (1-10) Eosinophils % (Manual) 1 % (0-3) Basophils % (Manual) 0 % (0-2) Band Neutrophils 0 % (0-8) Platelet Estimate Decreased L Platelet Morphology Normal Hypochromasia 1+ Schistocytes 1+ Sodium Level 142 MMOL/L (136-145) Potassium Level 3.5 MMOL/L (3.5-5.1) Chloride Level 101 MMOL/L (98-107) Carbon Dioxide Level 35 MMOL/L (21-32) H Anion Gap 7 mmol/L (5-15) Blood Urea Nitrogen 38 mg/dL (7-18) H Creatinine 7.4 MG/DL (0.55-1.30) H Estimat Glomerular Filtration Rate 8.8 mL/min (>60) Glucose Level 69 MG/DL (74-106) L Calcium Level 7.7 MG/DL (8.5-10.1) L Urine Color Pale yellow Urine Appearance Clear Urine pH 9 (4.5-8.0) Urine Specific [place] 1.015 (1.005-1.035) Urine Protein 2+ (NEGATIVE) H Urine Glucose (UA) 1+ (NEGATIVE) H Urine Ketones Negative (NEGATIVE) Urine Blood 3+ (NEGATIVE) H Urine Nitrite Negative (NEGATIVE) Urine Bilirubin Negative (NEGATIVE) Urine Urobilinogen Normal MG/DL (0.0-1.0) Urine Leukocyte Esterase Negative (NEGATIVE) Urine RBC 2-4 /HPF (0 - 0) H Urine WBC 0-2 /HPF (0 - 0) Urine Squamous Epithelial Cells Occasional /LPF Urine Bacteria Occasional /HPF (NONE) Plan Additional Comments Plan for HD cath tomorrow fany p mn IVF OR in AM consent Derek Lacey May 28, 2018 14:50
[2018-05-28 16:00] VITALS: BP 136/69
[2018-05-28 20:00] VITALS: BP 136/75
[2018-05-28] MEDS: Iron Sucrose 100 MG in NS 55 ML IV SCH (21:44)
[2018-05-28] MEDS: Atorvastatin 80mg tab ORAL SCH (21:44)
[2018-05-29] VITALS: BP 134/59
--- NOTE | 2018-05-29 03:00 | Progress Note ---
DATE: 05/28/2018 CARDIOLOGY PROGRESS NOTE SUBJECTIVE: The patient is status post hemodialysis today. No chest pain or shortness of breath. PHYSICAL EXAMINATION: VITAL SIGNS: Blood pressure 144/72, pulse 70, and respiratory rate 18. Monitored rhythm sinus. LUNGS: Bilateral breath sounds. No wheezing or rales. HEART: Regular rhythm and rate. Normal S1, S2 with a fourth heart sound. ABDOMEN: Soft. EXTREMITIES: Trace edema. LABORATORY DATA: White count 6.3 and hemoglobin 7.2. Potassium 3.5, BUN 38 7.4. IMPRESSION: 1. Acute renal failure. 2. Anemia due to above. 3. Acute myocardial infarction. 4. Acute on chronic diastolic congestive heart failure. 5. Hypertensive heart disease. 6. Hyperkalemia with bradyarrhythmia, resolved. 7. Lactic acidosis, recovered. 8. Type 2 diabetes mellitus, now on insulin. PLAN: 1. Avoid metformin. 2. Transfuse packed red blood cells. 3. 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 4. Titrate beta-harley. 5. Continue statin drug. 6. Antiplatelet therapy with Plavix. 7. Monitor for bleeding complications. Ramy Madera M.D. DR: JOSE FRANCISCO JOB#: [id number] CC:
[2018-05-29 04:00] VITALS: BP 123/67
[2018-05-29 05:23] LABS: BASOPHILS % (AUTO) 0.4 % (0.0-2.0); EOSINOPHILS % (AUTO) 2.6 % (0.0-3.0); HEMATOCRIT 23.7 % (42.0-52.0); HEMOGLOBIN 8.1 G/DL (14.2-18.0); LYMPHOCYTES % (AUTO) 13.2 % (20.0-45.0); MEAN CORPUSCULAR VOLUME 80 FL (80-99); MONOCYTES % (AUTO) 14.8 % (1.0-10.0); PLATELET COUNT 174 K/UL (150-450); RED BLOOD COUNT 2.96 M/UL (4.70-6.10); RED CELL DISTRIBUTION WIDTH 11.9 % (11.6-14.8); WHITE BLOOD COUNT 7.6 K/UL (4.8-10.8)
[2018-05-29 05:45] LABS: ALANINE AMINOTRANSFERASE 71 U/L (12-78); ALBUMIN 2.4 G/DL (3.4-5.0); ALBUMIN/GLOBULIN RATIO 0.7 (1.0-2.7); ALKALINE PHOSPHATASE 104 U/L (46-116); ANION GAP 7 mmol/L (5-15); ASPARTATE AMINO TRANSFERASE 66 U/L (15-37); BILIRUBIN,TOTAL 0.7 MG/DL (0.2-1.0); BLOOD UREA NITROGEN 46 mg/dL (7-18); CALCIUM 7.7 MG/DL (8.5-10.1); CARBON DIOXIDE 33 MMOL/L (21-32); CHLORIDE 101 MMOL/L (98-107); CREATINE KINASE 366 U/L (26-308); CREATININE 8.3 MG/DL (0.55-1.30); POTASSIUM 3.4 MMOL/L (3.5-5.1); SODIUM 141 MMOL/L (136-145)
[2018-05-29] MEDS: NovoLOG Insulin Flexpen SUBQ SCH ×3 (06:38→18:46)
[2018-05-29 08:00] VITALS: BP 150/72
[2018-05-29] MEDS: Magnesium Oxide 400mg tab ORAL SCH ×3 (08:48→18:44)
[2018-05-29] MEDS: Carvedilol 6.25mg Tab ORAL SCH ×2 (08:48→20:52)
--- NOTE | 2018-05-29 09:10 | Pulmonology Progress Note ---
Assessment/Plan Assessment/Plan 1. Diabetes with hypoglycemia. 2. Severe metabolic acidosis; likely due to metformin 3. Acute on chronic renal failure with uremia and hyperkalemia. 4. Arrhythmia likely due to hyperkalemia. 5. Peripheral artery disease. 6. Coronary artery stent placement. 7. Hypertension. 8. Hyperlipidemia. 9. Anemia. 10. Cholelithiasis. 11. Umbilical hernia. 12. AMI 13. GI bleed ambulating w PT stool OB +; called GI PermCath tomorrow off Plavix disc w surgery Hgb better will need SNF after dc Subjective Respiratory: Denies: productive cough, shortness of breath Allergies: Coded Allergies: No Known Allergies (Unverified , 05/23/18) Objective Last 24 Hour Vital Signs Date Time Temp Pulse Resp B/P (MAP) Pulse Ox O2 Delivery O2 Flow Rate FiO2 05/29/18 08:48 61 150/72 05/29/18 08:48 61 150/72 05/29/18 08:00 98.1 61 20 150/72 (98) 97 05/29/18 07:33 94 Room Air 21 05/29/18 07:33 Room Air 21 05/29/18 07:33 71 17 Room Air 21 05/29/18 04:00 60 05/29/18 04:00 98.1 69 16 123/67 (85) 98 05/29/18 04:00 Room Air 05/29/18 00:00 Room Air 05/29/18 00:00 97.5 74 18 134/59 (84) 97 05/29/18 00:00 72 05/28/18 21:44 74 136/75 05/28/18 20:08 96 Room Air 21 05/28/18 20:08 Room Air 21 05/28/18 20:00 81 05/28/18 20:00 Room Air 05/28/18 20:00 98.8 74 18 136/75 (95) 95 05/28/18 16:00 98.4 77 18 136/69 (91) 94 05/28/18 16:00 Room Air 05/28/18 16:00 67 05/28/18 12:00 98.4 63 18 135/57 (83) 97 05/28/18 12:00 Room Air 05/28/18 11:53 64 Intake and Output 05/28/18 05/29/18 19:00 07:00 Intake Total 480 ml 160 ml Output Total 900 ml 450 ml Balance -420 ml -290 ml Intake Oral 240 ml 100 ml IV Total 60 ml Blood Product 240 ml Output Urine Total 900 ml 450 ml # Bowel Movements 1 General Appearance: no acute distress Respiratory/Chest: lungs clear Cardiovascular: normal rate Microbiology Date/Time Source Procedure Growth Status 05/27/18 01:40 Other(Specify in comment) Catheter Tip Culture - Preliminary NO GROWTH Resulted 05/26/18 10:45 Indwelling Cath Urine Culture - Final NO GROWTH AFTER 48 HOURS Complete Laboratory Tests 05/28/18 10:45: Urine Color Pale yellow, Urine Appearance Clear, Urine pH 9, Urine Specific [place] 1.015, Urine Protein 2+H, Urine Glucose (UA) 1+H, Urine Ketones Negative , Urine Blood 3+H, Urine Nitrite Negative, Urine Bilirubin Negative, Urine Urobilinogen Normal, Urine Leukocyte Esterase Negative, Urine RBC 2-4H, Urine WBC 0-2, Urine Squamous Epithelial Cells Occasional, Urine Bacteria Occasional 05/29/18 03:55: White Blood Count 7.6, Red Blood Count 2.96L, Hemoglobin 8.1L, Hematocrit 23.7L , Mean Corpuscular Volume 80, Mean Corpuscular Hemoglobin 27.4, Mean Corpuscular Hemoglobin Concent 34.2, Red Cell Distribution Width 11.9, Platelet Count 174, Mean Platelet Volume 7.2, Neutrophils (%) (Auto) 69.0, Lymphocytes (% ) (Auto) 13.2L, Monocytes (%) (Auto) 14.8H, Eosinophils (%) (Auto) 2.6, Basophils (%) (Auto) 0.4, Prothrombin Time 10.5, Prothromb Time International Ratio 1.0, Activated Partial Thromboplast Time 27, Sodium Level 141, Potassium Level 3.4L, Chloride Level 101, Carbon Dioxide Level 33H, Anion Gap 7, Blood Urea Nitrogen 46H, Creatinine 8.3H, Estimat Glomerular Filtration Rate 7.8, Glucose Level 145H, Calcium Level 7.7L, Total Bilirubin 0.7, Aspartate Amino Transf (AST/SGOT) 66H, Alanine Aminotransferase (ALT/SGPT) 71, Alkaline Phosphatase 104, Total Creatine Kinase 366H, Total Protein 5.7L, Albumin 2.4L, Globulin 3.3, Albumin/Globulin Ratio 0.7L, Anti-Nuclear Antibody Screen [Pending ], HIV (1&2) Antibody Rapid Negative Current Medications Medications (Trade) Dose Ordered Sig/Isabelle Route PRN Reason Start Time Stop Time Status Last Admin Dose Admin Albuterol Sulfate (Proventil) 2.5 mg PRN HHN 05/28/18 01:15 06/02/18 01:14 Amlodipine Besylate (Norvasc) 5 mg DAILY ORAL 05/26/18 09:00 06/24/18 08:59 05/29/18 08:48 Atorvastatin Calcium (Lipitor) 80 mg BEDTIME ORAL 05/26/18 21:00 06/23/18 20:59 05/28/18 21:44 Carvedilol (Coreg) 12.5 mg EVERY 12 HOURS ORAL 05/27/18 09:00 06/26/18 08:59 05/29/18 08:48 Dextrose (Dextrose 50%) 25 ml Q30M PRN IV Hypoglycemia 05/26/18 06:45 06/22/18 14:44 Dextrose (Dextrose 50%) 50 ml Q30M PRN IV Hypoglycemia 05/26/18 06:45 06/22/18 14:44 Epoetin Chinedu (Procrit (for ESRD on dialysis)) 7,000 units TUE-TUE-TUE SUBQ 05/26/18 21:00 06/25/18 20:59 05/26/18 21:01 Insulin Aspart (NovoLOG) Q6HR SUBQ 05/26/18 12:00 06/22/18 17:59 05/29/18 06:38 Iron Sucrose 100 mg/Sodium Chloride 60 ml @ 240 mls/hr BEDTIME IV 05/26/18 21:00 05/30/18 21:14 05/28/18 21:44 Magnesium Oxide (Mag-Ox 400mg) 400 mg THREE TIMES A DAY ORAL 05/26/18 09:00 06/25/18 08:59 05/29/18 08:48 Pantoprazole (Protonix) 40 mg DAILY ORAL 05/27/18 09:00 06/26/18 08:59 05/29/18 08:48 Mike Randle MD May 29, 2018 09:09
[2018-05-29 12:00] VITALS: BP 140/64
--- NOTE | 2018-05-29 15:16 | General Surgery Progress Note ---
General Surgery-Progress Note Subjective Procedure Performed left femoral temporary HD catheter insertion Additional Comments no acute events. labs noted. comfortable. Objective Last 24 Hour Vital Signs Date Time Temp Pulse Resp B/P (MAP) Pulse Ox O2 Delivery O2 Flow Rate FiO2 05/29/18 12:00 Room Air 05/29/18 12:00 97.5 70 20 140/64 (89) 97 05/29/18 08:48 61 150/72 05/29/18 08:48 61 150/72 05/29/18 08:00 Room Air 05/29/18 08:00 98.1 61 20 150/72 (98) 97 05/29/18 07:33 94 Room Air 21 05/29/18 07:33 Room Air 21 05/29/18 07:33 71 17 Room Air 21 05/29/18 07:29 61 05/29/18 04:00 60 05/29/18 04:00 98.1 69 16 123/67 (85) 98 05/29/18 04:00 Room Air 05/29/18 00:00 Room Air 05/29/18 00:00 97.5 74 18 134/59 (84) 97 05/29/18 00:00 72 05/28/18 21:44 74 136/75 05/28/18 20:08 96 Room Air 21 05/28/18 20:08 Room Air 21 05/28/18 20:00 81 05/28/18 20:00 Room Air 05/28/18 20:00 98.8 74 18 136/75 (95) 95 05/28/18 16:00 98.4 77 18 136/69 (91) 94 05/28/18 16:00 Room Air 05/28/18 16:00 67 I&O Intake and Output 05/28/18 05/29/18 19:00 07:00 Intake Total 480 ml 160 ml Output Total 900 ml 450 ml Balance -420 ml -290 ml Intake Oral 240 ml 100 ml IV Total 60 ml Blood Product 240 ml Output Urine Total 900 ml 450 ml # Bowel Movements 1 Dressing: dry Wound: clean Drains: none Cardiovascular: RSR Respiratory: clear Abdomen: soft, flat, non-tender, present bowel sounds Extremities: no cyanosis Laboratory Tests Test 05/29/18 03:55 White Blood Count 7.6 K/UL (4.8-10.8) Red Blood Count 2.96 M/UL (4.70-6.10) L Hemoglobin 8.1 G/DL (14.2-18.0) L Hematocrit 23.7 % (42.0-52.0) L Mean Corpuscular Volume 80 FL (80-99) Mean Corpuscular Hemoglobin 27.4 PG (27.0-31.0) Mean Corpuscular Hemoglobin Concent 34.2 G/DL (32.0-36.0) Red Cell Distribution Width 11.9 % (11.6-14.8) Platelet Count 174 K/UL (150-450) Mean Platelet Volume 7.2 FL (6.5-10.1) Neutrophils (%) (Auto) 69.0 % (45.0-75.0) Lymphocytes (%) (Auto) 13.2 % (20.0-45.0) L Monocytes (%) (Auto) 14.8 % (1.0-10.0) H Eosinophils (%) (Auto) 2.6 % (0.0-3.0) Basophils (%) (Auto) 0.4 % (0.0-2.0) Prothrombin Time 10.5 SEC (9.30-11.50) Prothromb Time International Ratio 1.0 (0.9-1.1) Activated Partial Thromboplast Time 27 SEC (23-33) Sodium Level 141 MMOL/L (136-145) Potassium Level 3.4 MMOL/L (3.5-5.1) L Chloride Level 101 MMOL/L (98-107) Carbon Dioxide Level 33 MMOL/L (21-32) H Anion Gap 7 mmol/L (5-15) Blood Urea Nitrogen 46 mg/dL (7-18) H Creatinine 8.3 MG/DL (0.55-1.30) H Estimat Glomerular Filtration Rate 7.8 mL/min (>60) Glucose Level 145 MG/DL (74-106) H Calcium Level 7.7 MG/DL (8.5-10.1) L Total Bilirubin 0.7 MG/DL (0.2-1.0) Aspartate Amino Transf (AST/SGOT) 66 U/L (15-37) H Alanine Aminotransferase (ALT/SGPT) 71 U/L (12-78) Alkaline Phosphatase 104 U/L (46-116) Total Creatine Kinase 366 U/L (26-308) H Total Protein 5.7 G/DL (6.4-8.2) L Albumin 2.4 G/DL (3.4-5.0) L Globulin 3.3 g/dL Albumin/Globulin Ratio 0.7 (1.0-2.7) L Anti-Nuclear Antibody Screen Pending HIV (1&2) Antibody Rapid Negative (NEGATIVE) Plan Problems: (1) Acute renal failure Assessment & Plan: hold [facility] plan for perm a cath tomorrow npo p lissa AM labs Derek Lacey May 29, 2018 15:16
--- NOTE | 2018-05-29 15:17 | Pre-Procedure Note/Attestation ---
Pre-Procedure Note/Attestation Complete Prior to Procedure Planned Procedure: not applicable Procedure Narrative: perm-a-cath placement for HD Indications for Procedure Pre-Operative Diagnosis: renal insufficiency requiring urgent HD Attestation I attest that I discussed the nature of the procedure; its benefits; risks and complications; and alternatives (and the risks and benefits of such alternatives ), prior to the procedure, with the patient (or the patient's legal client services representative). I attest that, if there was a reasonable possibility of needing a blood transfusion, the patient (or the patient's legal client services representative) was given the [facility] standardized written summary, pursuant to the [place] Blood Safety Act ([place] Health and Safety Code # 1645, as amended). I attest that I re-evaluated the patient just prior to the surgery and that there has been no change in the patient's H&P, except as documented below: Derek Lacey May 29, 2018 15:17
--- NOTE | 2018-05-29 15:20 | Nephrology Progress Note ---
Assessment/Plan Problem List: (1) Acute coronary syndromes (2) Rhabdomyolysis (3) Hyperkalemia (4) Hypovolemic shock (5) Lactic acidosis (6) Acute renal failure (7) Hypoglycemia (8) Diabetes Plan better after dialysis, possible lactic acidosis from m metformin, anuric, now more urine serial HD, epo empiric atb pending culture neg will stop dc [facility] cath post HD, mobilize , pERMCATH IF NO IMPROVE RENAL FUNCTION, note bun and creat normal 2014, needs Pt and rehab, holding plavix pre permcath Subjective Constitutional: Reports: weakness HEENT: Reports: no symptoms Genitourinary: Reports: incontinence Neurologic/Psychiatric: Reports: no symptoms Objective Objective Last 24 Hour Vital Signs Date Time Temp Pulse Resp B/P (MAP) Pulse Ox O2 Delivery O2 Flow Rate FiO2 05/29/18 12:00 Room Air 05/29/18 12:00 97.5 70 20 140/64 (89) 97 05/29/18 08:48 61 150/72 05/29/18 08:48 61 150/72 05/29/18 08:00 Room Air 05/29/18 08:00 98.1 61 20 150/72 (98) 97 05/29/18 07:33 94 Room Air 21 05/29/18 07:33 Room Air 21 05/29/18 07:33 71 17 Room Air 21 05/29/18 07:29 61 05/29/18 04:00 60 05/29/18 04:00 98.1 69 16 123/67 (85) 98 05/29/18 04:00 Room Air 05/29/18 00:00 Room Air 05/29/18 00:00 97.5 74 18 134/59 (84) 97 05/29/18 00:00 72 05/28/18 21:44 74 136/75 05/28/18 20:08 96 Room Air 21 05/28/18 20:08 Room Air 21 05/28/18 20:00 81 05/28/18 20:00 Room Air 05/28/18 20:00 98.8 74 18 136/75 (95) 95 05/28/18 16:00 98.4 77 18 136/69 (91) 94 05/28/18 16:00 Room Air 05/28/18 16:00 67 Intake and Output 05/28/18 05/29/18 19:00 07:00 Intake Total 480 ml 160 ml Output Total 900 ml 450 ml Balance -420 ml -290 ml Intake Oral 240 ml 100 ml IV Total 60 ml Blood Product 240 ml Output Urine Total 900 ml 450 ml # Bowel Movements 1 Laboratory Tests 05/29/18 03:55: White Blood Count 7.6, Red Blood Count 2.96L, Hemoglobin 8.1L, Hematocrit 23.7L , Mean Corpuscular Volume 80, Mean Corpuscular Hemoglobin 27.4, Mean Corpuscular Hemoglobin Concent 34.2, Red Cell Distribution Width 11.9, Platelet Count 174, Mean Platelet Volume 7.2, Neutrophils (%) (Auto) 69.0, Lymphocytes (% ) (Auto) 13.2L, Monocytes (%) (Auto) 14.8H, Eosinophils (%) (Auto) 2.6, Basophils (%) (Auto) 0.4, Prothrombin Time 10.5, Prothromb Time International Ratio 1.0, Activated Partial Thromboplast Time 27, Sodium Level 141, Potassium Level 3.4L, Chloride Level 101, Carbon Dioxide Level 33H, Anion Gap 7, Blood Urea Nitrogen 46H, Creatinine 8.3H, Estimat Glomerular Filtration Rate 7.8, Glucose Level 145H, Calcium Level 7.7L, Total Bilirubin 0.7, Aspartate Amino Transf (AST/SGOT) 66H, Alanine Aminotransferase (ALT/SGPT) 71, Alkaline Phosphatase 104, Total Creatine Kinase 366H, Total Protein 5.7L, Albumin 2.4L, Globulin 3.3, Albumin/Globulin Ratio 0.7L, Anti-Nuclear Antibody Screen [Pending ], HIV (1&2) Antibody Rapid Negative Height (Feet): 5 Height (Inches): 1.00 Weight (Pounds): 140 General Appearance: no apparent distress, alert EENT: normal ENT inspection Neck: normal alignment Cardiovascular: normal rate, regular rhythm Respiratory/Chest: lungs clear Abdomen: non tender, soft Extremities: non-tender, normal inspection 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
[2018-05-29 16:00] VITALS: BP 133/60
--- NOTE | 2018-05-29 18:45 | Progress Note ---
DATE: 05/29/2018 CARDIOLOGY PROGRESS NOTE SUBJECTIVE: The patient is still feeling poorly. He is upset about his "bleeding internally." He is off anti-platelet therapy. PermCath is planned for dialysis. OBJECTIVE: VITAL SIGNS: Blood pressure 150/72, pulse 61, and respirations 20. LUNGS: Clear. CARDIAC: Regular. Normal S1, S2 with a fourth heart sound. ABDOMEN: Soft. EXTREMITIES: With trace edema. LABORATORY DATA: White count 7.6 and hemoglobin 8.1. Sodium 141, potassium 3.4, bicarbonate 33, BUN 46, and creatinine 8.3. Albumin 2.4. Stool occult blood remains positive. IMPRESSION: 1. Resolved conduction system disease with bradyarrhythmia due to hyperkalemia. 2. Acute renal failure. 3. Acute on chronic diastolic congestive heart failure, compensated. 4. Acute myocardial infarction precipitated by severe anemia. 5. Gastrointestinal, Hemoccult-positive stools. 6. Resolved lactic acidosis. 7. Insulin-requiring diabetes mellitus. PLAN: 1. Maintain hemoglobin above 8 g. 2. Continue beta-blockade. 3. Await PermCath. 4. Resume anti-platelet therapy following PermCath if no active GI bleeding source. 5. Maintain statin therapy. 6. Hemodialysis with ultrafiltration per Nephrology. Ramy Madera M.D. DR: OMAR JOB#: [id number] CC:
[2018-05-29 20:00] VITALS: BP 134/63
[2018-05-29] MEDS: Iron Sucrose 100 MG in NS 55 ML IV SCH (20:51)
[2018-05-29] MEDS: Atorvastatin 80mg tab ORAL SCH (20:52)
[2018-05-29] MEDS: Epogen (for ESRD on dialysis) SUBQ SCH (20:53)
--- NOTE | 2018-05-29 22:32 | General Progress Note ---
Assessment/Plan Assessment/Plan GI CONSULT Dictated Assessment - Heme (+) stools - ? hemoptysis, per patient - anemia - Renal failure - Elevated Troponin Recommendations - Follow CBC - check Iron panel - cardiology f/u - possible EGD/Colon at later date/outpatient, once more dede Rawls MD Subjective Allergies: Coded Allergies: No Known Allergies (Unverified , 05/23/18) Objective Last 24 Hour Vital Signs Date Time Temp Pulse Resp B/P (MAP) Pulse Ox O2 Delivery O2 Flow Rate FiO2 05/29/18 20:52 68 134/63 05/29/18 20:23 Room Air 21 05/29/18 20:23 95 Room Air 21 05/29/18 20:00 98.2 68 18 134/63 (86) 99 05/29/18 18:00 67 05/29/18 16:00 Room Air 05/29/18 16:00 98.4 69 20 133/60 (84) 96 05/29/18 12:00 Room Air 05/29/18 12:00 60 05/29/18 12:00 97.5 70 20 140/64 (89) 97 05/29/18 08:48 61 150/72 05/29/18 08:48 61 150/72 05/29/18 08:00 Room Air 05/29/18 08:00 98.1 61 20 150/72 (98) 97 05/29/18 07:33 94 Room Air 21 05/29/18 07:33 Room Air 21 05/29/18 07:33 71 17 Room Air 21 05/29/18 07:29 61 05/29/18 04:00 60 05/29/18 04:00 98.1 69 16 123/67 (85) 98 05/29/18 04:00 Room Air 05/29/18 00:00 Room Air 05/29/18 00:00 97.5 74 18 134/59 (84) 97 05/29/18 00:00 72 Intake and Output 05/28/18 05/29/18 18:59 06:59 Intake Total 480 ml 160 ml Output Total 900 ml 450 ml Balance -420 ml -290 ml Intake Oral 240 ml 100 ml IV Total 60 ml Blood Product 240 ml Output Urine Total 900 ml 450 ml # Bowel Movements 1 Laboratory Tests 05/29/18 03:55: White Blood Count 7.6, Red Blood Count 2.96L, Hemoglobin 8.1L, Hematocrit 23.7L , Mean Corpuscular Volume 80, Mean Corpuscular Hemoglobin 27.4, Mean Corpuscular Hemoglobin Concent 34.2, Red Cell Distribution Width 11.9, Platelet Count 174, Mean Platelet Volume 7.2, Neutrophils (%) (Auto) 69.0, Lymphocytes (% ) (Auto) 13.2L, Monocytes (%) (Auto) 14.8H, Eosinophils (%) (Auto) 2.6, Basophils (%) (Auto) 0.4, Prothrombin Time 10.5, Prothromb Time International Ratio 1.0, Activated Partial Thromboplast Time 27, Sodium Level 141, Potassium Level 3.4L, Chloride Level 101, Carbon Dioxide Level 33H, Anion Gap 7, Blood Urea Nitrogen 46H, Creatinine 8.3H, Estimat Glomerular Filtration Rate 7.8, Glucose Level 145H, Calcium Level 7.7L, Total Bilirubin 0.7, Aspartate Amino Transf (AST/SGOT) 66H, Alanine Aminotransferase (ALT/SGPT) 71, Alkaline Phosphatase 104, Total Creatine Kinase 366H, Total Protein 5.7L, Albumin 2.4L, Globulin 3.3, Albumin/Globulin Ratio 0.7L, Anti-Nuclear Antibody Screen [Pending ], HIV (1&2) Antibody Rapid Negative Height (Feet): 5 Height (Inches): 1.00 Weight (Pounds): 140 Matthew Rawls MD May 29, 2018 22:32
[2018-05-30] VITALS (11 sets, daily range): BP systolic 132–176; BP diastolic 62–90
--- NOTE | 2018-05-30 03:15 | Consultation ---
DATE OF CONSULTATION: 05/29/2018 GASTROENTEROLOGY CONSULTATION CHIEF COMPLAINT: I was asked to see this patient by Dr. Mike Randle for evaluation of heme-positive stools. HISTORY OF PRESENT ILLNESS: The patient is a debilitated 72-year-old man, who was admitted to the hospital due to altered mental status. He was found to be poorly responsive and hypoglycemia. He came to the emergency room and was admitted subsequently. He has been seen by multiple consultants. During the course of his admission, he was noted to have some anemia and his stool occult blood exam was positive. The patient, however, states that he did have some small amount of hemoptysis that he has noted himself. He never had endoscopy or colonoscopy before. He lives with his . He denies any abdominal pain. His bowel movements are daily. He has no hematochezia. No or dysphagia. He is noted to have some decreased appetite . PAST MEDICAL HISTORY: Coronary artery disease status post stent, history of renal failure, and anemia. Recent abdomen and liver tests which coincides with the patient's troponin. FAMILY HISTORY: Positive for a sister with lung cancer. SOCIAL HISTORY: The patient is . He does not smoke or drink alcohol. REVIEW OF SYSTEMS: Otherwise negative. MEDICATIONS: See the chart list for details. ALLERGIES: None. PHYSICAL EXAMINATION: GENERAL: This is a pleasant man, seen in his room. HEENT: Normocephalic and atraumatic. Sclerae anicteric. Oropharynx clear. NECK: Supple. CHEST: Clear to auscultation. CARDIOVASCULAR: Revealed a regular rate. ABDOMEN: Soft. EXTREMITIES: Revealed no edema. LABORATORY DATA: Noted. ASSESSMENT: This patient has anemia, mostly due to his renal failure. He also has heme-positive stools. The latter finding can also be explained by the patient's hemoptysis. Nonetheless, the patient has never had a colonoscopy and therefore at least for screening purposes that will be indicated. He can also have an endoscopy at the same time. However, at this time, the patient is just recovering from an acute event and he will be followed conservatively. The patient should undergo an endoscopy and colonoscopy once he stabilizes. Thank you for asking me to participate in the care of this patient. Matthew Rawls M.D. DR: AMANDA JOB#: [id number] CC:
[2018-05-30 05:08] LABS: BASOPHILS % (AUTO) 0.7 % (0.0-2.0); HEMATOCRIT 26.1 % (42.0-52.0); HEMOGLOBIN 8.9 G/DL (14.2-18.0); LYMPHOCYTES % (AUTO) 16.6 % (20.0-45.0); MEAN CORPUSCULAR VOLUME 81 FL (80-99); MONOCYTES % (AUTO) 15.6 % (1.0-10.0); NEUTROPHILS % (AUTO) 64.1 % (45.0-75.0); PLATELET COUNT 192 K/UL (150-450); RED BLOOD COUNT 3.23 M/UL (4.70-6.10); RED CELL DISTRIBUTION WIDTH 11.7 % (11.6-14.8); WHITE BLOOD COUNT 7.6 K/UL (4.8-10.8)
[2018-05-30 05:32] LABS: % IRON SATURATION 66 % (15-50); IRON 247 ug/dL (50-175); TOTAL IRON BINDING CAPACITY 377 ug/dL (250-450)
[2018-05-30 05:38] LABS: ALANINE AMINOTRANSFERASE 72 U/L (12-78); ALBUMIN 2.6 G/DL (3.4-5.0); ALBUMIN/GLOBULIN RATIO 0.7 (1.0-2.7); ALKALINE PHOSPHATASE 107 U/L (46-116); ANION GAP 7 mmol/L (5-15); ASPARTATE AMINO TRANSFERASE 66 U/L (15-37); BILIRUBIN,TOTAL 0.7 MG/DL (0.2-1.0); BLOOD UREA NITROGEN 46 mg/dL (7-18); CALCIUM 8.1 MG/DL (8.5-10.1); CARBON DIOXIDE 32 MMOL/L (21-32); CHLORIDE 102 MMOL/L (98-107); CREATININE 8.5 MG/DL (0.55-1.30); POTASSIUM 3.7 MMOL/L (3.5-5.1); SODIUM 141 MMOL/L (136-145)
[2018-05-30] MEDS: NovoLOG Insulin Flexpen SUBQ SCH ×5 (05:42→23:58)
[2018-05-30] MEDS ORDERED: Heparin Sod 1000 units/ml 10ml IV PRN (06:00)
[2018-05-30] MEDS: Carvedilol 6.25mg Tab ORAL SCH ×2 (09:16→21:43)
[2018-05-30] MEDS: Magnesium Oxide 400mg tab ORAL SCH ×3 (09:16→17:39)
[2018-05-30] MEDS ORDERED: Bacitracin Oint 15gm Tube TOPIC ONE (11:25)
[2018-05-30] MEDS ORDERED: Lidocaine 1% 10mg/ml/Epi 0.005mg/ml 30ml vial INJ ONE (11:25)
[2018-05-30] MEDS ORDERED: Bupivacaine w/Epi 0.25% 30ml Vial INJ ONE (11:25)
[2018-05-30] MEDS ORDERED: Heparin 1000 units/ml 1ml Vial ONE (11:25)
[2018-05-30] MEDS ORDERED: NS Irrig 1000ml ONE (11:30)
[2018-05-30] MEDS ORDERED: Sterile Water Irrig 1000ml IRRIG ONE (11:30)
[2018-05-30] MEDS ORDERED: LR 1000ml ONE (11:30)
[2018-05-30] MEDS ORDERED: LR 1000ml 1,000 ML IVLG SCH (11:39)
[2018-05-30] MEDS ORDERED: Midazolam 2mg/2ml Inj IVP PRN (11:45)
[2018-05-30] MEDS ORDERED: Meperidine 50mg/ml Inj(FOR RIGORS ONLY) IVP PRN (11:45)
[2018-05-30] MEDS ORDERED: Norco 5mg/325mg tab ORAL PRN (11:45)
[2018-05-30] MEDS ORDERED: DiphenhydrAMINE 50mg/ml Inj IVP PRN (11:45)
[2018-05-30] MEDS ORDERED: Metoclopramide 10mg/2ml Inj IVP PRN (11:45)
[2018-05-30] MEDS ORDERED: HYDROcodone/Acetamin 7.5/325 tab ORAL PRN (11:45)
[2018-05-30] MEDS ORDERED: fentaNYL 100 mcg/2 mL IV PRN (11:45)
[2018-05-30] MEDS ORDERED: LORazepam Inj 2mg/ml 1ml IV PRN (11:45)
[2018-05-30] MEDS ORDERED: Hydromorphone 0.5mg/0.5ml inj IVP PRN (11:45)
[2018-05-30] MEDS ORDERED: Atropine Sulfate 0.4mg/ml inj IVP PRN (11:45)
[2018-05-30] MEDS ORDERED: oxyCODONE HCL/Acetaminophen 5/325mg ORAL PRN (11:45)
[2018-05-30] MEDS ORDERED: Sodium Chloride 10ml vial INJ ONE (11:48)
[2018-05-30] MEDS ORDERED: Lidocaine 1% MPF 10mg/ml 5ml ONE (11:48)
[2018-05-30] MEDS ORDERED: Midazolam 2mg/2ml Inj ONE (11:49)
[2018-05-30] MEDS ORDERED: Alfentanil 2ml Inj ONE (11:49)
[2018-05-30] MEDS ORDERED: Ketamine 500mg Inj ONE (11:50)
[2018-05-30] MEDS ORDERED: Propofol 200mg/20ml IV ONE (11:51)
[2018-05-30] MEDS ORDERED: ePHEDrine 50mg/ml Inj ONE (12:09)
[2018-05-30] MEDS ORDERED: Heparin 5000 units/ml inj ONE (12:32)
--- NOTE | 2018-05-30 12:48 | Immediate Post-Op Evaluation ---
Immediate Post-Op Evalulation Immediate Post-Op Evalulation Procedure: Perma Cath Placement Date of Evaluation: May 30, 2018 Time of Evaluation: 13:27 IV Fluids: 200 LR Blood Products: 0 Estimated Blood Loss: 4 Urinary Output: 0 Blood Pressure Systolic: 176 Blood Pressure Diastolic: 92 Pulse Rate: 68 Respiratory Rate: 18 O2 Sat by Pulse Oximetry: 100 Temperature (Fahrenheit): 97.4 Pain Score (1-10): 2 Nausea: No Vomiting: No Complications 0 Patient Status: awake, reacts, patent, none Hydration Status: adequate Dru Gram Anecf IV Given Within 1 Hr of Incision: Yes Time Given: 11:56 Jonathon Mathews MD May 30, 2018 12:48
--- NOTE | 2018-05-30 12:49 | 48 Hour Post Anesthesia Eval ---
Post Anesthesia Evaluation Procedure: Perma Cath Placement Date of Evaluation: May 30, 2018 Time of Evaluation: 15:43 Blood Pressure Systolic: 158 0: 86 Pulse Rate: 64 Respiratory Rate: 18 Temperature (Fahrenheit): 98.4 O2 Sat by Pulse Oximetry: 99 Airway: patent Nausea: No Vomiting: No Pain Intensity: 2 Hydration Status: adequate Cardiopulmonary Status: Stable Mental Status/LOC: patient returned to baseline Follow-up Care/Observations: 0 Post-Anesthesia Complications: 0 Follow-up care needed: N/A Jonathon Mathews MD May 30, 2018 12:49
--- NOTE | 2018-05-30 13:19 | Brief Operative Note ---
Immediate Post Operative Note Operative Note Pre-op Diagnosis: renal insufficiency requiring HD Procedure: Right Internal Jugular Tunneled perm-a-cath insertion Post-op Diagnosis: same as pre-op Surgeon: meseret Anesthesiologist: santana Anesthesia: general, local Specimen: none Complications: none Condition: stable Fluids: see records Estimated Blood Loss: minimal Drains: none Implant(s) used?: Derek Nunez May 30, 2018 13:19
--- NOTE | 2018-05-30 13:27 | Diagnostic Imaging Report ---
Indication: Permacath placement Comparison: None A single portable coned-down view chest was obtained post procedure. Findings: Intraoperative imaging showing a right jugular permacath with the tip situated between the SVC and right atrium. IMPRESSION: Intraoperative imaging
--- NOTE | 2018-05-30 14:17 | Diagnostic Imaging Report ---
Indication: Dyspnea Comparison: 05/26/2018 A single view chest radiograph was obtained. Findings: Right jugular permacath noted. Heart is enlarged. There is a parenchymal density left lung base likely atelectasis. IMPRESSION: Right permacath in good position
--- NOTE | 2018-05-30 18:15 | Operative Note - Dictated ---
DATE OF OPERATION: 05/30/2018 PREOPERATIVE DIAGNOSIS: Renal insufficiency, requiring hemodialysis. POSTOPERATIVE DIAGNOSIS: Renal insufficiency, requiring hemodialysis. OPERATION PERFORMED: Right internal jugular tunneled long-term hemodialysis PermCath insertion. ATTENDING SURGEON: Derek Lacey M.D. DEVELOPMENT WRITER: None. ANESTHESIOLOGIST: Jonathon Mathews M.D. ANESTHESIA: General SKYDIVING INSTRUCTOR. ESTIMATED BLOOD LOSS: Minimal. IV FLUIDS: Please see anesthesia records. COMPLICATIONS: None. DRAINS: None. WOUND CLASSIFICATION: Class I. ANTIBIOTICS: Ancef 1 g IV given 1 hour prior to cut time. COUNT: Sponge and needle count correct x2. SPECIMENS: None. IMPLANTS: HemoStar long-term hemodialysis catheter, reference number [id number], lot number [id number]. INDICATIONS FOR PROCEDURE: This is a 72-year-old male who is currently in the hospital for medical care and management with acute renal insufficiency, who initially had a temporary Bud catheter placed for urgent hemodialysis and has been receiving hemodialysis since without significant improvement in renal function and will likely need long-term dialysis. Given these findings, a long-term hemodialysis catheter was indicated and recommended. Risks, benefits, and alternatives were discussed with the patient and family in detail, who expressed understanding and consented to the surgery, which was performed on 05/30/2018. OPERATIVE NOTE: The patient was taken to the operating room and placed on the operating table in supine position with bilateral arms tucked. All bony prominences were well padded. SCDs were placed. Preoperative IV antibiotics were given one hour prior to cut time. Preoperative time-out was taken identifying the patient, procedure, operative site, and surgical staff. General anesthesia was induced and the patient was intubated. The right neck and chest wall were prepped and draped in standard surgical fashion. Ultrasound guidance was used to identify a patent right internal jugular vein, which was without thrombus or abnormality. Using a finder needle under ultrasound guidance, the right internal jugular vein was cannulated. The venous flow was aspirated. A guidewire was placed over the needle and the needle removed. Fluoroscopy was brought into the room and fluoroscopy performed identifying the guidewire entering the right internal jugular vein to the SVC into the right atrium. At this time, local anesthetic was infiltrated throughout the tunnel tract. A small incision was made at the guidewire entrance. Following this, a small incision was made in the right chest wall once appropriate placement was identified using fluoroscopy. A tunneling device was used to tunnel the catheter from the right chest wall through the incision in the right neck. Once the catheter was brought through, the tunneling device was discarded. Under fluoroscopic guidance, the dilators were used over the guidewire using the Seldinger technique until the sheath and dilator catheter could be inserted. Once sheath and dilator were inserted, the dilator was removed as well as guidewire and sheath was left in place. Fluoroscopy was used and identified the appropriate positioning. Following this, the HemoStar catheter was placed through the sheath and the sheath was broken and slowly peeled away while the catheter was held in stable positioning. Once sheath was completely removed, the catheter was repositioned to ensure no kinking and fluoroscopy was used to identify the tip of the catheter in the SVC. The tract was hemostatic and no complications or other abnormalities were noted. Local anesthetic was infiltrated throughout the procedure as necessary for the patient's comfort. Guidewire and all sponge and needle counts were correct. Fluoroscopic timing was approximately 5-10 minutes. The right neck skin incision was closed using 4-0 Monocryl subcuticular interrupted suture. Skin glue was placed once the wound was cleansed. The catheter was sutured in place using 2-0 nylon suture followed by placement of dressings. Both ports flushed and aspirated without complication. Heparin was placed into both ports as directed on the port instructions, which was 1.8 and 1.9 mL respectively. Postop, the patient was then extubated and taken to postanesthetic care unit in stable condition where a stat chest x-ray was performed. Derek Lacey M.D. DR: Maylin JOB#: [id number] CC:
--- NOTE | 2018-05-30 18:45 | Nephrology Progress Note ---
Assessment/Plan Problem List: (1) Acute coronary syndromes (2) Rhabdomyolysis (3) Hyperkalemia (4) Hypovolemic shock (5) Lactic acidosis (6) Acute renal failure (7) Hypoglycemia (8) Diabetes Plan better after dialysis, possible lactic acidosis from m metformin, anuric, now more urine serial HD, epo empiric atb pending culture neg will stop [facility] cath post HD, mobilize , pERMCATH done and seen on HD 05/30 will need rehab, also seen for Dr Randle today as patient jwas in OR during his rounds Subjective Constitutional: Reports: weakness HEENT: Reports: no symptoms Genitourinary: Reports: no symptoms Neurologic/Psychiatric: Reports: no symptoms Objective Objective Last 24 Hour Vital Signs Date Time Temp Pulse Resp B/P (MAP) Pulse Ox O2 Delivery O2 Flow Rate FiO2 05/30/18 16:02 Room Air 05/30/18 16:01 97.7 58 16 150/71 (97) 99 05/30/18 16:00 60 05/30/18 14:26 97.3 57 16 160/76 (104) 98 05/30/18 14:00 97.3 60 14 149/76 100 Nasal Cannula 3 60 05/30/18 13:45 57 14 148/75 100 Nasal Cannula 3 57 05/30/18 13:40 59 15 146/84 100 Simple Mask 6 59 05/30/18 13:30 60 17 176/90 100 Simple Mask 6 60 05/30/18 13:16 97.4 76 16 176/90 100 Simple Mask 6 76 05/30/18 13:13 64 18 99 05/30/18 13:12 68 18 100 05/30/18 12:00 Room Air 05/30/18 09:16 63 146/72 05/30/18 09:16 63 146/72 05/30/18 08:00 64 05/30/18 08:00 Room Air 05/30/18 07:50 98.3 63 20 146/72 (96) 98 05/30/18 04:00 Room Air 05/30/18 04:00 98.6 63 20 151/62 (91) 96 05/30/18 04:00 59 05/30/18 00:00 Room Air 05/30/18 00:00 98.0 65 18 132/66 (88) 99 05/30/18 00:00 63 05/29/18 20:52 68 134/63 05/29/18 20:23 Room Air 21 05/29/18 20:23 95 Room Air 21 05/29/18 20:00 Room Air 05/29/18 20:00 98.2 68 18 134/63 (86) 99 05/29/18 20:00 65 Intake and Output 05/29/18 05/30/18 19:00 07:00 Intake Total 490 ml 60 ml Output Total 750 ml 375 ml Balance -260 ml -315 ml Intake Oral 250 ml IV Total 60 ml Blood Product 240 ml Output Urine Total 750 ml 375 ml Laboratory Tests 05/30/18 04:30: White Blood Count 7.6, Red Blood Count 3.23L, Hemoglobin 8.9L, Hematocrit 26.1L , Mean Corpuscular Volume 81, Mean Corpuscular Hemoglobin 27.4, Mean Corpuscular Hemoglobin Concent 33.9, Red Cell Distribution Width 11.7, Platelet Count 192, Mean Platelet Volume 6.6, Neutrophils (%) (Auto) 64.1, Lymphocytes (% ) (Auto) 16.6L, Monocytes (%) (Auto) 15.6H, Eosinophils (%) (Auto) 3.0, Basophils (%) (Auto) 0.7, Prothrombin Time 10.2, Prothromb Time International Ratio 1.0, Activated Partial Thromboplast Time 28, Sodium Level 141, Potassium Level 3.7, Chloride Level 102, Carbon Dioxide Level 32, Anion Gap 7, Blood Urea Nitrogen 46H, Creatinine 8.5H, Estimat Glomerular Filtration Rate 7.6, Glucose Level 163H, Calcium Level 8.1L, Iron Level 247H, Total Iron Binding Capacity 377 , Percent Iron Saturation 66H, Unsaturated Iron Binding 130, Total Bilirubin 0.7 , Aspartate Amino Transf (AST/SGOT) 66H, Alanine Aminotransferase (ALT/SGPT) 72 , Alkaline Phosphatase 107, Total Protein 6.2L, Albumin 2.6L, Globulin 3.6, Albumin/Globulin Ratio 0.7L Height (Feet): 5 Height (Inches): 0.00 Weight (Pounds): 138 General Appearance: no apparent distress EENT: normal ENT inspection Neck: normal alignment Cardiovascular: normal rate, regular rhythm Respiratory/Chest: lungs clear Abdomen: non tender, soft Extremities: trace edema 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
--- NOTE | 2018-05-30 18:54 | General Progress Note ---
Assessment/Plan Assessment/Plan Assessment - Heme (+) stools - x 3 - ? hemoptysis, per patient - anemia - Renal failure - Elevated Troponin - cholelithiasis - abnormal LFT, ? statin (HCV neg, HBV pend) Recommendations - Follow CBC - check Iron panel - no deficiency - cardiology f/u - EGD/Colon at later date/outpatient, once more stable Subjective Allergies: Coded Allergies: No Known Allergies (Unverified , 05/23/18) Subjective Feels OK no new symptoms for perm-a-cath placement today d/w patient re OB (+) x3 understands and accepts responsibility to set up outpt appt for EGD/Colon understands will not get any reminders Objective Last 24 Hour Vital Signs Date Time Temp Pulse Resp B/P (MAP) Pulse Ox O2 Delivery O2 Flow Rate FiO2 05/30/18 16:02 Room Air 05/30/18 16:01 97.7 58 16 150/71 (97) 99 05/30/18 16:00 60 05/30/18 14:26 97.3 57 16 160/76 (104) 98 05/30/18 14:00 97.3 60 14 149/76 100 Nasal Cannula 3 60 05/30/18 13:45 57 14 148/75 100 Nasal Cannula 3 57 05/30/18 13:40 59 15 146/84 100 Simple Mask 6 59 05/30/18 13:30 60 17 176/90 100 Simple Mask 6 60 05/30/18 13:16 97.4 76 16 176/90 100 Simple Mask 6 76 05/30/18 13:13 64 18 99 05/30/18 13:12 68 18 100 05/30/18 12:00 Room Air 05/30/18 09:16 63 146/72 05/30/18 09:16 63 146/72 05/30/18 08:00 64 05/30/18 08:00 Room Air 05/30/18 07:50 98.3 63 20 146/72 (96) 98 05/30/18 04:00 Room Air 05/30/18 04:00 98.6 63 20 151/62 (91) 96 05/30/18 04:00 59 05/30/18 00:00 Room Air 05/30/18 00:00 98.0 65 18 132/66 (88) 99 05/30/18 00:00 63 05/29/18 20:52 68 134/63 05/29/18 20:23 Room Air 21 05/29/18 20:23 95 Room Air 21 05/29/18 20:00 Room Air 05/29/18 20:00 98.2 68 18 134/63 (86) 99 05/29/18 20:00 65 Intake and Output 05/29/18 05/30/18 19:00 07:00 Intake Total 490 ml 60 ml Output Total 750 ml 375 ml Balance -260 ml -315 ml Intake Oral 250 ml IV Total 60 ml Blood Product 240 ml Output Urine Total 750 ml 375 ml Laboratory Tests 05/30/18 04:30: White Blood Count 7.6, Red Blood Count 3.23L, Hemoglobin 8.9L, Hematocrit 26.1L , Mean Corpuscular Volume 81, Mean Corpuscular Hemoglobin 27.4, Mean Corpuscular Hemoglobin Concent 33.9, Red Cell Distribution Width 11.7, Platelet Count 192, Mean Platelet Volume 6.6, Neutrophils (%) (Auto) 64.1, Lymphocytes (% ) (Auto) 16.6L, Monocytes (%) (Auto) 15.6H, Eosinophils (%) (Auto) 3.0, Basophils (%) (Auto) 0.7, Prothrombin Time 10.2, Prothromb Time International Ratio 1.0, Activated Partial Thromboplast Time 28, Sodium Level 141, Potassium Level 3.7, Chloride Level 102, Carbon Dioxide Level 32, Anion Gap 7, Blood Urea Nitrogen 46H, Creatinine 8.5H, Estimat Glomerular Filtration Rate 7.6, Glucose Level 163H, Calcium Level 8.1L, Iron Level 247H, Total Iron Binding Capacity 377 , Percent Iron Saturation 66H, Unsaturated Iron Binding 130, Total Bilirubin 0.7 , Aspartate Amino Transf (AST/SGOT) 66H, Alanine Aminotransferase (ALT/SGPT) 72 , Alkaline Phosphatase 107, Total Protein 6.2L, Albumin 2.6L, Globulin 3.6, Albumin/Globulin Ratio 0.7L Height (Feet): 5 Height (Inches): 0.00 Weight (Pounds): 138 Objective WDWN NCAT supple CTA RRR Soft NT ND no edema nonfocal Matthew Rawls MD May 30, 2018 18:54
[2018-05-30] MEDS: Dyna-Hex 2% Top Sol 2oz TOPIC SCH (21:42)
[2018-05-30] MEDS: Atorvastatin 80mg tab ORAL SCH (21:43)
[2018-05-30] MEDS: Iron Sucrose 100 MG in NS 55 ML IV SCH (21:44)
[2018-05-31] VITALS: BP 134/65
--- NOTE | 2018-05-31 02:30 | Progress Note ---
DATE: 05/30/2018 CARDIOLOGY PROGRESS NOTE SUBJECTIVE: The patient is status post PermCath placement today. Slightly more urine output is noted. He is status post hemodialysis with ultrafiltration. Blood pressure parameters are on the rise. OBJECTIVE: VITAL SIGNS: Blood pressure 160/76, pulse 57, respiratory rate 16. Monitored rhythm sinus and sinus bradycardia, no pauses. NECK: Jugular venous pressure is slightly elevated. LUNGS: Better breath sounds. No wheezing or rales. CARDIAC: Regular rhythm and rate. Normal S1, S2 with a fourth heart sound. ABDOMEN: Soft and nontender. EXTREMITIES: Trace edema. SKIN: PermCath site clean and dry with no signs of bleeding. LABORATORY AND DIAGNOSTIC DATA: White count 7.6, hemoglobin 8.9. Iron panel consistent with chronic disease and chronic kidney disease. BUN 46, creatinine 8.5, potassium 3.7, albumin 2.6. Chest x-ray, PermCath and reveals left lung atelectasis and cardiomegaly with no edema. IMPRESSION: 1. Heart block and bradyarrhythmia associated with hyperkalemia and acute renal failure, since resolved. 2. Acute renal failure, now on hemodialysis. 3. Metabolic and lactic acidosis, improving. 4. Coronary artery disease with history of coronary stents and presently with no signs of acute coronary insufficiency. 5. Hypertensive heart disease with rising blood pressure trend following episodes of hypotension and shock. PLAN: 1. Hemodialysis with ultrafiltration per Nephrology. 2. Monitor cardiorenal parameters and volume status. 3. Continue and titrate anti-failure and antianginal regimen. 4. Resume antiplatelet therapy with aspirin. Ramy Madera M.D. DR: Kar JOB#: [id number] CC:
[2018-05-31 04:00] VITALS: BP 141/63
[2018-05-31] MEDS: Morphine Sulfate 2mg/ml Inj IVP PRN ×2 (04:54→10:04)
[2018-05-31] MEDS: NovoLOG Insulin Flexpen SUBQ SCH ×3 (05:19→17:27)
[2018-05-31 07:55] VITALS: BP 133/58
[2018-05-31] MEDS: Magnesium Oxide 400mg tab ORAL SCH ×3 (08:40→17:26)
[2018-05-31] MEDS: Aspirin EC 81mg tab ORAL SCH (08:40)
[2018-05-31] MEDS: Carvedilol 6.25mg Tab ORAL SCH ×2 (08:40→20:44)
--- NOTE | 2018-05-31 09:45 | 48 Hour Post Anesthesia Eval ---
Post Anesthesia Evaluation Procedure: Perma Cath Placement Date of Evaluation: May 31, 2018 Time of Evaluation: 09:44 Blood Pressure Systolic: 138 0: 74 Pulse Rate: 68 Respiratory Rate: 22 Temperature (Fahrenheit): 97.5 Airway: patent Nausea: No Vomiting: No Pain Intensity: 2 Hydration Status: adequate Cardiopulmonary Status: stable Mental Status/LOC: patient returned to baseline Follow-up Care/Observations: n/a Post-Anesthesia Complications: none Follow-up care needed: N/A Paxton Rodriguez MD May 31, 2018 09:45
[2018-05-31 11:32] VITALS: BP 147/82
--- NOTE | 2018-05-31 15:53 | General Progress Note ---
Progress Note Progress Note Surgery: doing well. pain improved. tolerating diet. no n/v/f/c labs improved exam benign. abd soft nt/nd bs+ wounds c/d//i -diet as tolerated -okay to d/c from surgical standpoint thank you Derek Lacey May 31, 2018 15:53
[2018-05-31 16:00] VITALS: BP 152/71
[2018-05-31] MEDS ORDERED: Norco 5mg/325mg tab ORAL PRN (17:15)
--- NOTE | 2018-05-31 17:19 | Pulmonology Progress Note ---
Assessment/Plan Assessment/Plan 1. Diabetes with hypoglycemia. 2. Severe metabolic acidosis; likely due to metformin 3. Acute on chronic renal failure with uremia and hyperkalemia. 4. Arrhythmia likely due to hyperkalemia. 5. Peripheral artery disease. 6. Coronary artery stent placement. 7. Hypertension. 8. Hyperlipidemia. 9. Anemia. 10. Cholelithiasis. 11. Umbilical hernia. 12. AMI 13. GI bleed ambulating w PT stool OB +; GI rec endoscopy as outpt PermCath placed pain L groin where HD cath removed; no DVT some emesis after narcotics disc w renal possible home tomorrow Subjective Gastrointestinal/Abdominal: Reports: vomiting Musculoskeletal: Reports: pain - L groin Allergies: Coded Allergies: No Known Allergies (Unverified , 05/23/18) Objective Last 24 Hour Vital Signs Date Time Temp Pulse Resp B/P (MAP) Pulse Ox O2 Delivery O2 Flow Rate FiO2 05/31/18 16:00 Room Air 05/31/18 16:00 97.7 61 19 152/71 (98) 97 05/31/18 12:00 58 05/31/18 12:00 Room Air 05/31/18 11:32 97.7 62 18 147/82 (103) 95 05/31/18 09:45 68 22 05/31/18 08:40 67 133/58 05/31/18 08:40 67 133/58 05/31/18 08:05 95 Room Air 21 05/31/18 08:05 Room Air 21 05/31/18 08:05 68 20 Room Air 3.0 21 05/31/18 08:00 Room Air 05/31/18 08:00 58 05/31/18 07:55 97.3 67 17 133/58 (83) 96 05/31/18 04:00 Room Air 05/31/18 04:00 58 05/31/18 04:00 97.8 58 16 141/63 (89) 94 05/31/18 00:00 63 05/31/18 00:00 Room Air 05/31/18 00:00 97.8 61 22 134/65 (88) 92 05/30/18 21:43 72 152/74 05/30/18 20:00 97.5 62 20 168/88 (114) 96 05/30/18 20:00 Room Air 05/30/18 20:00 96 Room Air 21 05/30/18 20:00 Room Air 05/30/18 20:00 66 20 Room Air 3.0 21 05/30/18 20:00 77 Intake and Output 05/30/18 05/31/18 19:00 07:00 Intake Total 530 ml 140 ml Output Total 400 ml 1850 ml Balance 130 ml -1710 ml Intake Oral 480 ml 80 ml IV Total 50 ml 60 ml Output Urine Total 400 ml 850 ml Hemodialysis UF 1000 ml # Voids 1 HEENT: normocephalic Respiratory/Chest: lungs clear Cardiovascular: normal rate Abdomen: soft, non tender Extremities: no edema Laboratory Tests 05/31/18 03:20: Hepatitis B Surface Antigen [Pending] Current Medications Medications (Trade) Dose Ordered Sig/Isabelle Route PRN Reason Start Time Stop Time Status Last Admin Dose Admin Acetaminophen/ Hydrocodone Bitart (Max 5/325) 1 tab Q4H PRN ORAL Severe Pain (Pain Scale 7-10) 05/31/18 17:15 06/07/18 17:14 UNV Albuterol Sulfate (Proventil) 2.5 mg PRN HHN 05/28/18 01:15 06/02/18 01:14 Amlodipine Besylate (Norvasc) 5 mg DAILY ORAL 05/26/18 09:00 06/24/18 08:59 05/31/18 08:40 Aspirin (Ecotrin) 81 mg DAILY ORAL 05/31/18 09:00 06/30/18 08:59 05/31/18 08:40 Atorvastatin Calcium (Lipitor) 80 mg BEDTIME ORAL 05/26/18 21:00 06/23/18 20:59 05/30/18 21:43 Carvedilol (Coreg) 12.5 mg EVERY 12 HOURS ORAL 05/27/18 09:00 06/26/18 08:59 05/31/18 08:40 Chlorhexidine Gluconate (Ashanti-Hex 2%) 1 applic DAILY@1999 TOPIC 05/30/18 20:00 06/29/18 19:59 05/30/18 21:42 Clopidogrel Bisulfate (Plavix) 75 mg DAILY ORAL 06/01/18 09:00 07/01/18 08:59 Dextrose (Dextrose 50%) 25 ml Q30M PRN IV Hypoglycemia 05/26/18 06:45 06/22/18 14:44 Dextrose (Dextrose 50%) 50 ml Q30M PRN IV Hypoglycemia 05/26/18 06:45 06/22/18 14:44 Epoetin Chinedu (Procrit (for ESRD on dialysis)) 7,000 units TUE-TUE-TUE SUBQ 05/26/18 21:00 06/25/18 20:59 05/29/18 20:53 Insulin Aspart (NovoLOG) Q6HR SUBQ 05/26/18 12:00 06/22/18 17:59 05/31/18 12:06 Magnesium Oxide (Mag-Ox 400mg) 400 mg THREE TIMES A DAY ORAL 05/26/18 09:00 06/25/18 08:59 05/31/18 12:05 Ondansetron HCl (Zofran) 4 mg EVERY 4 HOURS PRN IVP Nausea & Vomiting 05/31/18 13:15 06/30/18 13:14 05/31/18 13:11 Pantoprazole (Protonix) 40 mg DAILY ORAL 05/27/18 09:00 06/26/18 08:59 05/31/18 08:40 Mike Randle MD May 31, 2018 17:19
--- NOTE | 2018-05-31 17:28 | Nephrology Progress Note ---
Assessment/Plan Problem List: (1) Acute coronary syndromes (2) Rhabdomyolysis (3) Hyperkalemia (4) Hypovolemic shock (5) Lactic acidosis (6) Acute renal failure (7) Hypoglycemia (8) Diabetes Plan better after dialysis, possible lactic acidosis from m metformin, anuric, now more urine serial HD, epo empiric atb pending culture neg will stop dc [facility] cath post HD, mobilize , [facility] done and seen on HD 05/30 will need rehab, some nausea HD 06/01 Subjective Constitutional: Reports: weakness HEENT: Reports: no symptoms Genitourinary: Reports: incontinence Neurologic/Psychiatric: Reports: weakness Objective Objective Last 24 Hour Vital Signs Date Time Temp Pulse Resp B/P (MAP) Pulse Ox O2 Delivery O2 Flow Rate FiO2 05/31/18 16:00 61 05/31/18 16:00 Room Air 05/31/18 16:00 97.7 61 19 152/71 (98) 97 05/31/18 12:00 58 05/31/18 12:00 Room Air 05/31/18 11:32 97.7 62 18 147/82 (103) 95 05/31/18 09:45 68 22 05/31/18 08:40 67 133/58 05/31/18 08:40 67 133/58 05/31/18 08:05 95 Room Air 21 05/31/18 08:05 Room Air 21 05/31/18 08:05 68 20 Room Air 3.0 21 05/31/18 08:00 Room Air 05/31/18 08:00 58 05/31/18 07:55 97.3 67 17 133/58 (83) 96 05/31/18 04:00 Room Air 05/31/18 04:00 58 05/31/18 04:00 97.8 58 16 141/63 (89) 94 05/31/18 00:00 63 05/31/18 00:00 Room Air 05/31/18 00:00 97.8 61 22 134/65 (88) 92 05/30/18 21:43 72 152/74 05/30/18 20:00 97.5 62 20 168/88 (114) 96 05/30/18 20:00 Room Air 05/30/18 20:00 96 Room Air 21 05/30/18 20:00 Room Air 05/30/18 20:00 66 20 Room Air 3.0 21 05/30/18 20:00 77 Intake and Output 05/30/18 05/31/18 19:00 07:00 Intake Total 530 ml 140 ml Output Total 400 ml 1850 ml Balance 130 ml -1710 ml Intake Oral 480 ml 80 ml IV Total 50 ml 60 ml Output Urine Total 400 ml 850 ml Hemodialysis UF 1000 ml # Voids 1 Laboratory Tests 05/31/18 03:20: Hepatitis B Surface Antigen [Pending] Height (Feet): 5 Height (Inches): 0.00 Weight (Pounds): 137 General Appearance: no apparent distress, alert EENT: normal ENT inspection Neck: normal alignment Cardiovascular: normal rate Respiratory/Chest: lungs clear Abdomen: non tender Extremities: normal capillary refill Neurologic: undercar specialist II-XII grossly normal, other - generalized weak Objective generalized weak Suraj Workman MD May 31, 2018 17:27
[2018-05-31 20:00] VITALS: BP 155/75
[2018-05-31] MEDS: Atorvastatin 80mg tab ORAL SCH (20:43)
[2018-05-31] MEDS: Dyna-Hex 2% Top Sol 2oz TOPIC SCH (20:43)
[2018-05-31] MEDS: Epogen (for ESRD on dialysis) SUBQ SCH (21:31)
--- NOTE | 2018-05-31 23:17 | General Progress Note ---
Assessment/Plan Assessment/Plan Assessment - Heme (+) stools - x 3 - ? hemoptysis, per patient - anemia - Renal failure - Elevated Troponin - cholelithiasis - abnormal LFT, ? statin (HCV neg, HBV pend) Recommendations - Follow CBC - check Iron panel - no deficiency - cardiology f/u - EGD/Colon at later date/outpatient, once more stable Subjective Allergies: Coded Allergies: No Known Allergies (Unverified , 05/23/18) Subjective Feels OK no new symptoms d/c planning noted d/w patient re OB (+) x3 understands and accepts responsibility to set up outpt appt for EGD/Colon understands will not get any reminders Objective Last 24 Hour Vital Signs Date Time Temp Pulse Resp B/P (MAP) Pulse Ox O2 Delivery O2 Flow Rate FiO2 05/31/18 20:44 70 155/75 05/31/18 20:00 98.2 70 18 155/75 (101) 97 05/31/18 20:00 76 05/31/18 20:00 Room Air 05/31/18 19:24 70 20 Room Air 21 05/31/18 19:24 96 Room Air 21 05/31/18 19:24 Room Air 21 05/31/18 16:00 61 05/31/18 16:00 Room Air 05/31/18 16:00 97.7 61 19 152/71 (98) 97 05/31/18 12:00 58 05/31/18 12:00 Room Air 05/31/18 11:32 97.7 62 18 147/82 (103) 95 05/31/18 09:45 68 22 05/31/18 08:40 67 133/58 05/31/18 08:40 67 133/58 05/31/18 08:05 95 Room Air 21 05/31/18 08:05 Room Air 21 05/31/18 08:05 68 20 Room Air 3.0 21 05/31/18 08:00 Room Air 05/31/18 08:00 58 05/31/18 07:55 97.3 67 17 133/58 (83) 96 05/31/18 04:00 Room Air 05/31/18 04:00 58 05/31/18 04:00 97.8 58 16 141/63 (89) 94 05/31/18 00:00 63 05/31/18 00:00 Room Air 05/31/18 00:00 97.8 61 22 134/65 (88) 92 Intake and Output 05/30/18 05/31/18 18:59 06:59 Intake Total 530 ml 140 ml Output Total 400 ml 1850 ml Balance 130 ml -1710 ml Intake Oral 480 ml 80 ml IV Total 50 ml 60 ml Output Urine Total 400 ml 850 ml Hemodialysis UF 1000 ml # Voids 1 Laboratory Tests 05/31/18 03:20: Hepatitis B Surface Antigen [Pending] Height (Feet): 5 Height (Inches): 0.00 Weight (Pounds): 137 Objective WDWN NCAT supple CTA RRR Soft NT ND no edema nonfocal Matthew Rawls MD May 31, 2018 23:17
[2018-06-01] VITALS: BP 131/54
--- NOTE | 2018-06-01 03:15 | Progress Note ---
DATE: 05/31/2018 CARDIOLOGY PROGRESS NOTE SUBJECTIVE: The patient remains on hemodialysis with ultrafiltration. Stool occult blood noted, but outpatient endoscopy is recommended. The patient's PermCath was placed yesterday and functioning well. The patient has some pain in his left groin where prior catheter was removed. Monitored rhythm sinus. OBJECTIVE: VITAL SIGNS: Blood pressure 152/71, pulse 61, and respiratory rate 19. LUNGS: Clear. PermCath site on the right subclavian stable. CARDIAC: Regular. Normal S1 and S2 with a fourth heart sound. ABDOMEN: Soft. EXTREMITIES: No edema. Left groin with no hematoma. Distal pulses palpable. IMPRESSION: 1. Hyperkalemia with severe bradyarrhythmia and heart block due to acute renal failure on admission now with stable metabolic parameters on hemodialysis. Cardiac rhythm is stable. 2. Acute on chronic diastolic congestive heart failure compensated. 3. Hypertensive heart disease, now with adequate blood pressure control. 4. Acute myocardial infarction, precipitated by above, no sequelae noted. PLAN: 1. No resumption of ARB. 2. Continue beta-harley and hold anti-platelet therapy if bleeding continues. 3. Hemodialysis with ultrafiltration. To continue for volume management at this time. 4. Outpatient cardiovascular followup offered. Ramy Madera M.D. DR: LEONARDO JOB#: [id number] CC:
[2018-06-01 04:00] VITALS: BP 145/64
[2018-06-01 05:08] LABS: BASOPHILS % (AUTO) 0.5 % (0.0-2.0); HEMOGLOBIN 8.1 G/DL (14.2-18.0); LYMPHOCYTES % (AUTO) 11.5 % (20.0-45.0); MEAN CORPUSCULAR VOLUME 80 FL (80-99); MONOCYTES % (AUTO) 16.4 % (1.0-10.0); NEUTROPHILS % (AUTO) 70.6 % (45.0-75.0); PLATELET COUNT 207 K/UL (150-450); RED BLOOD COUNT 2.99 M/UL (4.70-6.10); RED CELL DISTRIBUTION WIDTH 11.8 % (11.6-14.8); WHITE BLOOD COUNT 7.3 K/UL (4.8-10.8)
[2018-06-01 05:56] LABS: ALANINE AMINOTRANSFERASE 46 U/L (12-78); ALBUMIN 2.7 G/DL (3.4-5.0); ALBUMIN/GLOBULIN RATIO 0.8 (1.0-2.7); ALKALINE PHOSPHATASE 103 U/L (46-116); ANION GAP 6 mmol/L (5-15); ASPARTATE AMINO TRANSFERASE 44 U/L (15-37); BILIRUBIN,TOTAL 0.7 MG/DL (0.2-1.0); BLOOD UREA NITROGEN 27 mg/dL (7-18); CALCIUM 8.7 MG/DL (8.5-10.1); CARBON DIOXIDE 33 MMOL/L (21-32); CHLORIDE 100 MMOL/L (98-107); CREATININE 5.8 MG/DL (0.55-1.30); POTASSIUM 3.5 MMOL/L (3.5-5.1); SODIUM 138 MMOL/L (136-145)
[2018-06-01] MEDS ORDERED: Heparin Sod 1000 units/ml 10ml IV PRN (06:00)
[2018-06-01] MEDS: NovoLOG Insulin Flexpen SUBQ SCH ×4 (06:38→18:04)
[2018-06-01 07:45] VITALS: BP 101/62
[2018-06-01] MEDS: Aspirin EC 81mg tab ORAL SCH (08:22)
[2018-06-01] MEDS: Magnesium Oxide 400mg tab ORAL SCH ×3 (08:22→18:03)
[2018-06-01] MEDS: Carvedilol 6.25mg Tab ORAL SCH (08:23)
[2018-06-01 11:50] VITALS: BP 141/72
[2018-06-01] MEDS ORDERED: LEVEMIR FL100 UNIT/1 SUBQ (14:59)
[2018-06-01] MEDS ORDERED: PLAVIX75 MG ORAL (14:59)
[2018-06-01] MEDS ORDERED: NORCO 5-325 TA1 EACH ORAL (14:59)
[2018-06-01] MEDS ORDERED: PROTONIX40 MG ORAL (14:59)
[2018-06-01] MEDS ORDERED: ASPIRIN EC81 MG ORAL (14:59)
[2018-06-01 15:41] VITALS: BP 129/59
--- NOTE | 2018-06-01 17:59 | Nephrology Progress Note ---
Assessment/Plan Problem List: (1) Acute coronary syndromes (2) Rhabdomyolysis (3) Hyperkalemia (4) Hypovolemic shock (5) Lactic acidosis (6) Acute renal failure (7) Hypoglycemia (8) Diabetes Plan better after dialysis, possible lactic acidosis from m metformin, anuric, now more urine serial HD, epo empiric atb pending culture neg will stop dc [facility] cath post HD, mobilize , [facility]ATH done and on HD 06/01 dc planned will need rehab, some nausea HD 06/01 Subjective Constitutional: Reports: weakness HEENT: Reports: no symptoms Genitourinary: Reports: no symptoms Neurologic/Psychiatric: Reports: no symptoms Objective Objective Last 24 Hour Vital Signs Date Time Temp Pulse Resp B/P (MAP) Pulse Ox O2 Delivery O2 Flow Rate FiO2 06/01/18 16:15 77 06/01/18 16:00 Room Air 06/01/18 15:41 98.4 80 18 129/59 (82) 99 06/01/18 12:00 Room Air 06/01/18 12:00 67 06/01/18 11:50 98.2 79 18 141/72 (95) 100 06/01/18 08:23 60 101/62 06/01/18 08:23 60 101/62 06/01/18 08:08 60 06/01/18 08:00 Room Air 06/01/18 07:45 97.3 64 17 101/62 (75) 99 06/01/18 04:00 Room Air 06/01/18 04:00 97.9 61 16 145/64 (91) 95 06/01/18 04:00 64 06/01/18 00:00 Room Air 06/01/18 00:00 98.2 63 18 131/54 (79) 97 06/01/18 00:00 61 05/31/18 20:44 70 155/75 05/31/18 20:00 98.2 70 18 155/75 (101) 97 05/31/18 20:00 76 05/31/18 20:00 Room Air 05/31/18 19:24 70 20 Room Air 21 05/31/18 19:24 96 Room Air 21 05/31/18 19:24 Room Air 21 Intake and Output 05/31/18 06/01/18 19:00 07:00 Intake Total 120 ml 100 ml Output Total 800 ml 400 ml Balance -680 ml -300 ml Intake Oral 120 ml 100 ml Output Urine Total 800 ml 400 ml Laboratory Tests 06/01/18 04:05: White Blood Count 7.3, Red Blood Count 2.99L, Hemoglobin 8.1L, Hematocrit 24.0L , Mean Corpuscular Volume 80, Mean Corpuscular Hemoglobin 27.2, Mean Corpuscular Hemoglobin Concent 33.8, Red Cell Distribution Width 11.8, Platelet Count 207, Mean Platelet Volume 6.5, Neutrophils (%) (Auto) 70.6, Lymphocytes (% ) (Auto) 11.5L, Monocytes (%) (Auto) 16.4H, Eosinophils (%) (Auto) 1.0, Basophils (%) (Auto) 0.5, Sodium Level 138, Potassium Level 3.5, Chloride Level 100, Carbon Dioxide Level 33H, Anion Gap 6, Blood Urea Nitrogen 27H, Creatinine 5.8H, Estimat Glomerular Filtration Rate 11.8, Glucose Level 175H, Calcium Level 8.7, Phosphorus Level 3.3, Total Bilirubin 0.7, Aspartate Amino Transf ( AST/SGOT) 44H, Alanine Aminotransferase (ALT/SGPT) 46, Alkaline Phosphatase 103 , Total Protein 6.3L, Albumin 2.7L, Globulin 3.6, Albumin/Globulin Ratio 0.8L Height (Feet): 5 Height (Inches): 0.00 Weight (Pounds): 143 General Appearance: no apparent distress EENT: normal ENT inspection Neck: normal alignment Cardiovascular: normal rate, regular rhythm Respiratory/Chest: lungs clear, normal breath sounds Abdomen: soft Extremities: trace edema Neurologic: lieutenant governor II-XII grossly normal Objective generalized weak Suraj Workman MD Jun 01, 2018 17:59
[2018-06-01] MEDS ORDERED: NS 275ml ONE (20:04)
[2018-06-01] MEDS ORDERED: Tubing Blood Filter IV ONE (20:04)
[2018-06-01] MEDS ORDERED: Carvedilol 12.5mg tab ORAL SCH (21:00)
--- NOTE | 2018-06-01 22:00 | Progress Note ---
DATE: 06/01/2018 CARDIOLOGY PROGRESS NOTE SUBJECTIVE: The patient is status post hemodialysis with ultrafiltration today. He noted some nausea. No chest pain or shortness of breath. Monitored rhythm, sinus. Rare ectopy. PHYSICAL EXAMINATION: LUNGS: Good breath sounds. No wheezing. HEART: Regular rhythm and rate. Normal S1, S2. ABDOMEN: Soft. EXTREMITIES: Trace edema. IMPRESSION: 1. Acute renal failure, now on hemodialysis via PermCath. 2. Hyperkalemia secondary to above, resolved. 3. Advanced conduction system abnormalities with heart block due to hyperkalemia, now recovered. 4. Acute myocardial ischemia, 5. Possible [id number] infarction, uncomplicated otherwise. 6. Lactic acidosis, resolved. 7. Acute on chronic diastolic congestive heart failure, compensated. 8. Hypovolemic shock, resolved. PLAN: 1. Discharge planning. 2. Outpatient dialysis. 3. Continue beta-harley. 4. No ARB or ENMA inhibitor therapy. 5. Anti-platelet drugs with no active bleeding. 6. Unstable blood count. Ramy Madera M.D. DR: OMAR JOB#: [id number] CC:
--- NOTE | 2018-06-01 23:04 | General Progress Note ---
Assessment/Plan Assessment/Plan Assessment - Heme (+) stools - x 3 - ? hemoptysis, per patient - anemia - Renal failure - Elevated Troponin - cholelithiasis - abnormal LFT, ? statin (HCV neg, HBV pend) Recommendations - Follow CBC - check Iron panel - no deficiency - cardiology f/u - EGD/Colon at later date/outpatient, once more stable Subjective Allergies: Coded Allergies: No Known Allergies (Unverified , 05/23/18) Subjective Feels OK no new symptoms d/c planning noted d/w patient sister, Renetta, at bedside re OB (+) Sister says they may elect to set up outpt appt for EGD/Colon at [facility] with patient's usual team of MD advised can either f/u with me or go though that team for the w/u understands will not get any reminders Objective Last 24 Hour Vital Signs Date Time Temp Pulse Resp B/P (MAP) Pulse Ox O2 Delivery O2 Flow Rate FiO2 06/01/18 19:30 66 20 Room Air 21 06/01/18 16:15 77 06/01/18 16:00 Room Air 06/01/18 15:41 98.4 80 18 129/59 (82) 99 06/01/18 12:00 Room Air 06/01/18 12:00 67 06/01/18 11:50 98.2 79 18 141/72 (95) 100 06/01/18 08:23 60 101/62 06/01/18 08:23 60 101/62 06/01/18 08:08 60 06/01/18 08:00 Room Air 06/01/18 07:45 97.3 64 17 101/62 (75) 99 06/01/18 04:00 Room Air 06/01/18 04:00 97.9 61 16 145/64 (91) 95 06/01/18 04:00 64 06/01/18 00:00 Room Air 06/01/18 00:00 98.2 63 18 131/54 (79) 97 06/01/18 00:00 61 Intake and Output 05/31/18 06/01/18 19:00 07:00 Intake Total 120 ml 100 ml Output Total 800 ml 400 ml Balance -680 ml -300 ml Intake Oral 120 ml 100 ml Output Urine Total 800 ml 400 ml Laboratory Tests 06/01/18 04:05: White Blood Count 7.3, Red Blood Count 2.99L, Hemoglobin 8.1L, Hematocrit 24.0L , Mean Corpuscular Volume 80, Mean Corpuscular Hemoglobin 27.2, Mean Corpuscular Hemoglobin Concent 33.8, Red Cell Distribution Width 11.8, Platelet Count 207, Mean Platelet Volume 6.5, Neutrophils (%) (Auto) 70.6, Lymphocytes (% ) (Auto) 11.5L, Monocytes (%) (Auto) 16.4H, Eosinophils (%) (Auto) 1.0, Basophils (%) (Auto) 0.5, Sodium Level 138, Potassium Level 3.5, Chloride Level 100, Carbon Dioxide Level 33H, Anion Gap 6, Blood Urea Nitrogen 27H, Creatinine 5.8H, Estimat Glomerular Filtration Rate 11.8, Glucose Level 175H, Calcium Level 8.7, Phosphorus Level 3.3, Total Bilirubin 0.7, Aspartate Amino Transf ( AST/SGOT) 44H, Alanine Aminotransferase (ALT/SGPT) 46, Alkaline Phosphatase 103 , Total Protein 6.3L, Albumin 2.7L, Globulin 3.6, Albumin/Globulin Ratio 0.8L Height (Feet): 5 Height (Inches): 0.00 Weight (Pounds): 143 Objective WDWN NCAT supple CTA RRR Soft NT ND no edema nonfocal Matthew Rawls MD Jun 01, 2018 23:04
--- NOTE | 2018-06-02 11:31 | Discharge Summary ---
Discharge Summary Discharge Summary _ DATE OF ADMISSION: May 23, 2018 DATE OF DISCHARGE: June 01, 2018 DISCHARGED BY: Dr. Mike Randle CONSULTANTS: Dr. Matthew Lacey BRIEF HOSPITAL COURSE: Patient is a 72-year-old male, who came to the hospital chloride and home via paramedics because of altered mental status. Apparently he was found to be poorly responsive and was hypoglycemic in the field. He was given D5 10 twice and his mental status improved. He had been vomiting. He was somewhat confused and weak. He has medical history of diabetes mellitus, coronary artery disease with stent placement. He was not aware of any kidney disorder. He had been vomiting and had a poor appetite for about 3 days. On evaluation at the ED, blood work did not show any leukocytosis. Hemoglobin was 10.7, hematocrit 32.7. Potassium was elevated to 6.3. BUN was 73, creatinine was elevated to 7.5. Glucose level was 314. Troponin was negative. Lactic acid was elevated to 15. He had an EKG that showed normal sinus rhythm with peaked T waves. He was given Kayexalate, calcium, sodium bicarbonate insulin and dextrose. He was also noted to be bradycardic. Head CT done showed chronic age-related changes, negative for acute intracranial bleed or mass-effect. Chest x-ray showed no acute process. Abdominal and pelvic CT showed bilateral perinephric fat stranding, acuity indeterminate although suspect chronic. There was no acute definite process otherwise. He was then admitted for evaluation of severe metabolic acidosis, renal failure, diabetes with hypoglycemia. He was admitted to ICU. Section Laborer was consulted. She had had acute kidney injury likely due to dehydration. Hyperkalemia possibly secondary to acute kidney injury and possible potassium retaining medications. He was given vigorous IV hydration. Repeat potassium check showed elevation to 8.9. Patient required emergent hemodialysis. Dr. Gutierrez was consulted and a left femoral temporary HD catheter was inserted. While in ICU, patient was noted to become more unresponsive and hypoxic. ABG showed significant acidosis. ER doctor was called to evaluate patient and patient was orally intubated. He was hooked on a ventilator. Patient remained hypotensive. Central line was inserted to the right femoral vein. IV pressors were started. Missile Mechanic was consulted. Patient condition critical, with concerns for heart block and bradyarrhythmia due to hyperkalemia. External pacemaker were placed. Following day, patient self extubated. He was placed on Venturi mask. Potassium levels eventually normalized. He was eventually transferred out of ICU on 05/25/2018. He was resumed on low- dose beta-harley. Patient had possible lactic acid acidosis from metformin. He was continued on inpatient hemodialysis. There was increase in troponin level. He was given antiplatelet therapy. Venous duplex was negative for DVT. On 05/27/2018, left femoral hemodialysis catheter was removed. He had episodes of anemia and received 1 unit packed RBC blood transfusion. He was given Epogen. OB was positive. GI was consulted. Iron panel showed no deficiency. He was recommended EGD/colonoscopy at a later date as outpatient. There was no improvement in renal function. Plavix was placed on hold. On May 30, 2018, a tunneled permacath was inserted to the right internal jugular vein by Dr. Lacey. He was continued on hemodialysis. He was given PT mobility. He was eventually discharged home. FINAL DIAGNOSES: Severe metabolic acidosis, likely due to metformin Diabetes with hypoglycemia Acute on chronic renal failure with uremia and hyperkalemia Arrhythmia likely due to hyperkalemia Hyperkalemia requiring initiation of hemodialysis Peripheral artery disease Coronary artery stent placement Hypertension Hyperlipidemia Anemia Drop in hemoglobin requiring blood transfusion Cholelithiasis Umbilical hernia GI bleed DISPOSITION: Patient was discharged home. DISCHARGE MEDICATIONS: Refer to Discharge Medication List. DISCHARGE INSTRUCTIONS: Follow-up in a week. I have been assigned to dictate discharge summary on this account, and I was not involved in the patient's management. Medina Garcia NP Jun 02, 2018 11:31
== END 2018-06-01 20:05 | disposition home or self-care (01) | DRG 673 ==
LOC: EDBD 07:05 → EMR 07:25 → ICU 09:30 → UNDOADMIN 09:30 → EDBEDREQ 10:09 → EDBEDREQSVC 13:31 → 2W 05-26 06:30
PROC: 06HM33Z Insertion of Infusion Device into Right Femoral Vein, Percutaneous Approach (ICD-10-PCS; principal; 2018-05-23)
PROC: 5A1D70Z Performance of Urinary Filtration, Intermittent, Less than 6 Hours Per Day (ICD-10-PCS; principal; 2018-05-23)
PROC: 0BH17EZ Insertion of Endotracheal Airway into Trachea, Via Natural or Artificial Opening (ICD-10-PCS; principal; 2018-05-23)
PROC: 06HN33Z Insertion of Infusion Device into Left Femoral Vein, Percutaneous Approach (ICD-10-PCS; principal; 2018-05-23)
PROC: 5A1935Z Respiratory Ventilation, Less than 24 Consecutive Hours (ICD-10-PCS; principal; 2018-05-23)
PROC: B513ZZA Fluoroscopy of Right Jugular Veins, Guidance (ICD-10-PCS; 2018-05-30)
PROC: 05HM33Z Insertion of Infusion Device into Right Internal Jugular Vein, Percutaneous Approach (ICD-10-PCS; 2018-05-30)
PROC: 0JH63XZ Insertion of Tunneled Vascular Access Device into Chest Subcutaneous Tissue and Fascia, Percutaneous Approach (ICD-10-PCS; 2018-05-30)
DX: N17.9 Acute kidney failure, unspecified (principal); R57.1 Hypovolemic shock; G93.41 Metabolic encephalopathy; I50.33 Acute on chronic diastolic (congestive) heart failure; I21.4 Non-ST elevation (NSTEMI) myocardial infarction; I24.9 Acute ischemic heart disease, unspecified; E87.2 Acidosis; I13.0 Hypertensive heart and chronic kidney disease with heart failure and stage 1 through stage 4 chronic kidney disease, or unspecified chronic kidney disease; M62.82 Rhabdomyolysis; R04.2 Hemoptysis; E11.649 Type 2 diabetes mellitus with hypoglycemia without coma; I25.10 Atherosclerotic heart disease of native coronary artery without angina pectoris; Z95.5 Presence of coronary angioplasty implant and graft; E86.0 Dehydration; E11.22 Type 2 diabetes mellitus with diabetic chronic kidney disease; N18.9 Chronic kidney disease, unspecified; E87.5 Hyperkalemia; I73.9 Peripheral vascular disease, unspecified; E78.5 Hyperlipidemia, unspecified; D63.1 Anemia in chronic kidney disease; K80.20 Calculus of gallbladder without cholecystitis without obstruction; K42.9 Umbilical hernia without obstruction or gangrene; R00.1 Bradycardia, unspecified; R68.0 Hypothermia, not associated with low environmental temperature; I95.9 Hypotension, unspecified; I44.0 Atrioventricular block, first degree; R09.02 Hypoxemia
CPT/HCPCS: 31500; 36415; 36600; 70450; 71045; 74176; 76000; 80048; 80053; 80061; 80202; 81001; 81003; 82270; 82550; 82553; 82803; 82962; 83540; 83550; 83605; 83615; 83735; 83874; 83880; 84100; 84484; 84550; 85007; 85025; 85610; 85730; 86039; 86703; 86707; 86710; 86803; 86850; 86900; 86901; 86920; 87040; 87070; 87081; 87086; 87340; 87350; 93005; 93306; 93970; 94002; 94003; 94150; 94640; 94664; 94760; 96361; 96365; 96375; 96376; 99291; J1815; J2250; J2405; J3490; J8499